=== PATIENT | male | born 1945 | race Caucasian/White ===

== ENCOUNTER 2017-09-22 11:03 | Day surgery (SDC) | payer MEDICARE, SELFPAY ==
[2017-09-17 13:26] VITALS: BMI 27.3
[2017-09-17 15:09] VITALS: BMI 28.1
[2017-09-22] VITALS (14 sets, daily range): BP systolic 109–156; BP diastolic 65–98; PULSE 52–62; RESP 16–18; TEMP 36.6; O2SAT 91–98
--- NOTE | 2017-09-22 12:47 | HMH.PROC ---
[facility] Procedure Note Procedure Note:: Colonoscopy Procedure Report: Colonoscopy with cold snare polypectomy and hemorrhoid band ligation Endoscopist: Raheel Gustafson II, MD Referring physician: Raymond Puckett M.D. Date of Procedure: September 22, 2017 Equipment: Olympus 180 variable stiffness pediatric colonoscope Sedation: Fentanyl 200 mg IV/ Versed 9 mg IV Indication: Mr. Jones is a 71-year-old gentleman who is here for diagnostic colonoscopy. He has had a change in bowel habits with 6-7 bowel movements daily and some bright red rectal bleeding. He did improve after taking FiberCon. The patient's last colonoscopy was January 2010 at which time a single polyp (tubular adenoma ?1) were removed. He has had a couple of polyps removed in the past. He reports no abdominal pain, weight lossor family history of colon cancer. His bowel function has improved. Procedure: Prior to the procedure, a history and physical exam was performed, and patient's medications and allergies were reviewed. The risks, benefits and alternatives of the sedation and procedure were discussed with the patient. All questions were answered and informed consent was obtained. The patient was brought to the procedure room. Patient identification and proposed procedure were verified by the physician and the nurse. The patient was placed in a left lateral decubitus position and the scope was passed under direct vision. Throughout the procedure, the patient's blood pressure, pulse, and oxygen saturations were monitored continuously. The colonoscopy was accomplished without difficulty. The patient tolerated the procedure well. Findings: On digital rectal examination there was normal rectal tone. There were no external hemorrhoids. The prostate was 2-3+ with some firmness at the lower margin of the prostate. The colonoscope was introduced through the anal canal to the rectum and advanced to the cecum. The ileocecal valve and appendiceal orifice were identified. The scope was advanced a short distance into the ileum which appeared grossly normal. The scope was then withdrawn into the colon. There were 3 colon polyps identified in the cecum ?1 and ascending ?2. These ranged in size from 4-6 mm and were all removed via cold snare polypectomy. There were scattered diverticuli throughout the descending and sigmoid colon (LEFT colon). There was some evidence of chronic sigmoid diverticulitis. The rectum itself was normal. Upon retroflexion within the rectum there were grade 1-2 internal hemorrhoids. The hemorrhoids were banded using 3 bands with excellent ligation effect. Impression: 1. Diminutive colonic polyps ?3 2. Left-sided diverticulosis with evidence of chronic sigmoid diverticulitis 3. Grade 1-2 internal hemorrhoids status post band ligation ?3 4. Prostate firmness/mild asymmetry lower margins Plan: I will follow up the polyp pathology and recommend repeat colonoscopy again in 5 years based upon the polyp histology. I would encourage fiber supplementation (FiberCon or psyllium) on a long-term daily maintenance basis. I would recommend PSA testing annually.
--- NOTE | 2017-09-22 12:56 | P.PCN_ITS ---
[facility] Procedure Note Procedure Note:: Colonoscopy Procedure Report: Colonoscopy with cold snare polypectomy and hemorrhoid band ligation Endoscopist: Raheel Gustafson II, MD Referring physician: Raymond Puckett M.D. Date of Procedure: September 22, 2017 Equipment: Olympus 180 variable stiffness pediatric colonoscope Sedation: Fentanyl 200 mg IV/ Versed 9 mg IV Indication: Mr. Jones is a 71-year-old gentleman who is here for diagnostic colonoscopy. He has had a change in bowel habits with 6-7 bowel movements daily and some bright red rectal bleeding. He did improve after taking FiberCon. The patient's last colonoscopy was January 2010 at which time a single polyp (tubular adenoma ?1) were removed. He has had a couple of polyps removed in the past. He reports no abdominal pain, weight lossor family history of colon cancer. His bowel function has improved. Procedure: Prior to the procedure, a history and physical exam was performed, and patient' s medications and allergies were reviewed. The risks, benefits and alternatives of the sedation and procedure were discussed with the patient. All questions were answered and informed consent was obtained. The patient was brought to the procedure room. Patient identification and proposed procedure were verified by the physician and the nurse. The patient was placed in a left lateral decubitus position and the scope was passed under direct vision. Throughout the procedure, the patient's blood pressure, pulse, and oxygen saturations were monitored continuously. The colonoscopy was accomplished without difficulty. The patient tolerated the procedure well. Findings: On digital rectal examination there was normal rectal tone. There were no external hemorrhoids. The prostate was 2-3+ with some firmness at the lower margin of the prostate. The colonoscope was introduced through the anal canal to the rectum and advanced to the cecum. The ileocecal valve and appendiceal orifice were identified. The scope was advanced a short distance into the ileum which appeared grossly normal. The scope was then withdrawn into the colon. There were 3 colon polyps identified in the cecum ?1 and ascending ? 2. These ranged in size from 4-6 mm and were all removed via cold snare polypectomy. There were scattered diverticuli throughout the descending and sigmoid colon (LEFT colon). There was some evidence of chronic sigmoid diverticulitis. The rectum itself was normal. Upon retroflexion within the rectum there were grade 1-2 internal hemorrhoids. The hemorrhoids were banded using 3 bands with excellent ligation effect. Impression: 1. Diminutive colonic polyps ?3 2. Left-sided diverticulosis with evidence of chronic sigmoid diverticulitis 3. Grade 1-2 internal hemorrhoids status post band ligation ?3 4. Prostate firmness/mild asymmetry lower margins Plan: I will follow up the polyp pathology and recommend repeat colonoscopy again in 5 years based upon the polyp histology. I would encourage fiber supplementation (FiberCon or psyllium) on a long-term daily maintenance basis. I would recommend PSA testing annually.
== END 2017-09-22 13:59 | disposition home or self-care (01) ==
LOC: OUTP 11:06
PROVIDERS: Family Provider Nurse Practitioner Family; PCP Internal Medicine Adolescent Medicine; Visit Provider Internal Medicine Gastroenterology
PROC: 0DJD8ZZ Inspection of Lower Intestinal Tract, Via Natural or Artificial Opening Endoscopic (ICD-10-PCS; CPT 45378; principal; 2017-09-22 12:00)
DX: K63.5 Polyp of colon (principal); K57.30 Diverticulosis of large intestine without perforation or abscess without bleeding; K64.0 First degree hemorrhoids; K64.1 Second degree hemorrhoids; Z86.010 Personal history of colon polyps
CPT/HCPCS: 45380; 88305; 99152; 99153

== ENCOUNTER → 2018-09-03 09:18 | Outpatient (CLI) | payer MEDICARE, SELFPAY ==
--- NOTE | 2018-09-03 09:23 | CA_ITS ---
PROCEDURE: 2-D M-mode and color Doppler study INDICATIONS FOR THE TEST: Chest pain+ COPD Heart Murmur Tobacco Smoking Palpitations Fatigue Syncope Edema Hypertension+Diabetes Mellitus Rheumatic Fever SOB ELE Obesity Hyperlipidemia+ Family History HD Additional History Lt sided chest pressure PATIENT INFORMATION HEIGHT: 68 WEIGHT: 176 GENDER: Male B/P: 124/78 2-D/M-MODE INTERPRETATION: 2-D MEASUREMENTS OBSERVED VALUES IN CMS Right Ventricular Dimension (RVDd) 3.0 Interventricular Septum (Thickness)(IVsd) 0.9 Left Ventricular Internal Dimensions(LVIDd) 5.1 Left Ventricular Posterior Wall (Thickness)(LVPWd) 0.9 Aortic Root 3.3 Aortic Cusp Separation 2.3 Left Atrial Dimensions (LAD) 3.7 2D 1. Left atrium is mildly enlarged, left ventricle is normal size, left ventricle wall thickness is upper limit of the normal, there is preserved left ventricular systolic function, visually estimated ejection fraction 55% with no regional wall motion abnormality. 2. The right atrium and right ventricle are mildly enlarged with normal contractility. 3. The aortic valve is minimally thickened and fibrosed. 4. The mitral and tricuspid valve leaflets are minimally thickened. 5. The pulmonic valve is poorly visualized. 6. No significant pericardial effusion noted. DOPPLER INTERROGATION: Doppler interrogation of the aortic, mitral and tricuspid valvular presence of mild mitral and tricuspid regurgitation, tricuspid regurgitation jet velocity is inadequate for calculation of the right ventricular systolic pressure, grade 1 diastolic dysfunction seen with tissue Doppler evidence of raised left atrial pressure. CONCLUSION: 1. Mildly enlarged left atrium, normal left ventricular size, visually estimated ejection fraction 55% with no regional wall motion abnormality, grade 1 diastolic dysfunction seen with tissue Doppler evidence of raised left atrial pressure. 2. Mildly enlarged right atrium and right ventricle, contractility of the right ventricle is normal. 3. Mild mitral and tricuspid regurgitation 4. No significant pericardial effusion noted.
== END ==
PROVIDERS: PCP Internal Medicine Adolescent Medicine; Visit Provider Internal Medicine Adolescent Medicine
DX: R94.31 Abnormal electrocardiogram [ECG] [EKG] (principal)
CPT/HCPCS: 93306

== ENCOUNTER → 2018-09-21 08:37 | Outpatient (POV) | payer MEDICARE, SELFPAY | PROVIDERS: Visit Provider Nurse Practitioner Acute Care | DX: Z00.00 Encounter for general adult medical examination without abnormal findings (principal) ==

== ENCOUNTER → 2020-01-27 14:35 | Outpatient (CLI) | payer MEDICARE, SELFPAY ==
--- NOTE | 2020-01-27 14:39 | MR_ITS ---
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 3-D MIP and myelographic images are also rendered and reviewed FINDINGS: There is normal alignment. The spinal cord ends at the L1-L2 level. There is multilevel lumbar spondylosis. T10-T11: Degenerative disc disease. T11-T12: Degenerate disc disease with mild facet and ligamentum hypertrophy the T12-L1: Mild degenerative disc disease. L1-L2: Degenerative disc disease with minimal left paracentral disc protrusion not readily apparent on the previous exam causing minimal narrowing of the left lateral recess L2-L3: Degenerative disc disease with bulging disc with facet and ligamentum hypertrophy with bilateral lateral recess narrowing and bilateral foraminal narrowing. Not significantly changed L3-L4: Degenerative disc disease with bulging disc eccentric toward the right with facet and ligamentum hypertrophy. There is severe right lateral recess narrowing and moderate right-sided foraminal narrowing. There is transverse narrowing of the canal at 10 mm. The lateral recess narrowing and facet hypertrophic change is slightly worse than when compared to the previous exam L4-5: 5 mm anterolisthesis of L4 with bulging disc along with facet ligamentum hypertrophy with canal stenosis not significantly changed. There is a small amount fluid within the facet joints at this level. There is severe bilateral lateral recess narrowing and moderate bilateral foraminal narrowing. L5-S1: 6 mm retrolisthesis of L5 with degenerative disc disease. Posterior endplate hypertrophic changes present and is eccentric toward the right with resultant severe right lateral recess narrowing not significantly changed. No extruded herniated disc are evident. Incidental note is made of a 5 cm left renal cyst and small right parapelvic renal cyst versus hydronephrosis IMPRESSION: 1. There is multilevel lumbar spondylosis. Degenerative disc disease with facet and ligamentum hypertrophy is present with lateral recess and foraminal narrowing and with canal stenosis. 2. L1-L2: Degenerative disc disease with minimal left paracentral disc protrusion not readily apparent on the previous exam causing minimal narrowing of the left lateral recess 3. L2-L3: Degenerative disc disease with bulging disc with facet and ligamentum hypertrophy with bilateral lateral recess narrowing and bilateral foraminal narrowing. 4. L3-L4: Degenerative disc disease with bulging disc eccentric toward the right with facet and ligamentum hypertrophy. There is severe right lateral recess narrowing and moderate right-sided foraminal narrowing. There is transverse narrowing of the canal at 10 mm. The lateral recess narrowing and facet hypertrophic change is slightly worse than when compared to the previous exam 5. L4-5: 5 mm anterolisthesis of L4 with bulging disc along with facet ligamentum hypertrophy with canal stenosis not significantly changed. There is a small amount fluid within the facet joints at this level. There is severe bilateral lateral recess narrowing and moderate bilateral foraminal narrowing. 6. L5-S1: 6 mm retrolisthesis of L5 with degenerative disc disease. Posterior endplate hypertrophic changes present and is eccentric toward the right with resultant severe right lateral recess narrowing not significantly changed Dictated by: Prateek Purvis MD 01/28/2020 15:57 Electronically signed by Prateek Purvis MD in [place] 01/28/2020 15:57
== END ==
PROVIDERS: Visit Provider Internal Medicine Adolescent Medicine
DX: M54.31 Sciatica, right side (principal)
CPT/HCPCS: 72148; 76376

== ENCOUNTER 2020-06-14 19:35 | Emergency (ER) | payer MEDICARE, SELFPAY ==
[2020-06-14 19:37] VITALS: BP 183/107; PULSE 61; RESP 16; TEMP 36.7; O2SAT 96; BMI 27.3
--- NOTE | 2020-06-14 20:02 | HMH.EDSKAF ---
ED Disposition Clinical Impression: Skin abrasion Cellulitis Qualifiers: Site of cellulitis: extremity Site of cellulitis of extremity: upper extremity Laterality: unspecified laterality Qualified Code(s): L03.119 - Cellulitis of unspecified part of limb Disposition: Home, Self-Care Condition on Discharge: Good Instructions: Cellulitis Additional Instructions: keep clean and see pcp for follow up Prescriptions: Mupirocin [Bactroban 2% Ointment 22gm tube] 1 applicatio TP BID #1 tube Transmission Status: Pending to [facility] cephALEXin [Keflex 500mg Cap] 500 mg PO TID #30 cap Transmission Status: Pending to [facility] Referrals: Raymond Puckett MD [Primary Care Provider] - - Critical Care Critical Care Time: No Attestation: On , the high probability of a clinically significant, sudden or life threatening deterioration of the following system(s) required my full and direct attention, intervention and personal management. The time I documented below is in addition to time spent performing reported procedures but includes the following listed in this critical care notation. Medical Decision Making - Medical Records Medical records reviewed: Yes: I reviewed the patient's medical records. - [place] Inquiry Pt receiving controlled substance: No Vital Signs: 06/14/20 19:37 Temperature 98.1 F Temperature Source Oral Pulse Rate [Left Radial] 61 Respiratory Rate 16 Blood Pressure [Right Arm] 183/107 H Blood Pressure Mean [Right Arm] 132 Blood Pressure Source [Right Arm] Automatic Cuff Blood Pressure Position [Right Arm] Sitting 02 Sat by Pulse Oximetry 96 Oxygen Delivery Method Room Air Orders (Tests/Meds): ED MEDICATIONS Discontinued Medications Generic Name Dose Route Start Last Admin Trade Name Benjamín PRN Reason Stop Dose Admin Cephalexin HCl 500 mg 06/14/20 20:10 Cephalexin 500mg Capsule PO 06/14/20 20:11 ONCE ONE Protocol Tetanus/Diphtheria Toxoids 0.5 ml 06/14/20 20:01 06/14/20 20:09 Tetanus-Diphth Toxoid, Adult 0.5ml Syr IM 06/14/20 20:02 0.5 ml .ONCE ONE Administration Skin/Abscess/FB HPI - General Chief complaint: Fall Stated complaint: AO 1030 06/14/20 Fell off boat, lac to r & l arm, Time Seen by Provider: 06/14/20 20:02 Mode of Arrival: Ambulatory Source of Information: Patient, Medical Record Limitations: No Limitations Description of Symptoms (Recalled from ER Triage Doc. by RN): pt stated he was fishing this morning in [place] when he slipped and fell into the water trying to step from the boat to the dock. pt stated he attempted to grab a post on the dock and cut himself on the barnacles attahed to the post. pt has abrasions/ skin tears to his right forearm, left bicep and left lower leg. - History of Present Illness HPI narrative: fall this am with abrasions to ext and leg - pt has no fever or other c/o MD complaint: other (abrasions ) Onset (ago): hour(s) Tetanus up to date: no Location: [facility] Severity: moderate Associated symptoms: denies other symptoms Treatments prior to arrival: none - Related Data Home Medications Medication Instructions Recorded Confirmed Amlodipine Besylate [Norvasc 5mg 5 mg PO DAILY 09/17/17 09/22/17 tablet] Cetirizine HCl 10 mg PO DAILY 09/17/17 09/22/17 Diclofenac Sodium [Diclofenac 75mg 75 mg PO BID 09/17/17 09/22/17 Tab] Levothyroxine Sodium 100 mg PO DAILY 09/17/17 09/22/17 [Levothyroxine 100mcg (0.1MG) Tab] Memantine HCl/Donepezil HCl 28 each PO DAILY 09/17/17 09/22/17 [Namzaric 28 mg-10 mg Capsule] Nebivolol HCl [Bystolic] 5 mg PO DAILY 09/17/17 09/22/17 Rosuvastatin Calcium [Crestor] 40 mg PO HS 09/17/17 09/22/17 Previous Rx's Medication Instructions Recorded Mupirocin [Bactroban 2% Ointment 1 applicatio TP BID #1 tube 06/14/20 22gm tube] cephALEXin [Keflex 500mg Cap] 500 mg PO TID #30 cap 06/14/20 Allergies Allergy/AdvReac Type S
--- NOTE | 2020-06-14 20:07 | PC.NURSE ---
cleaned wound with sterile water and hebacleanse. triple antibiotic ointment applied with non stick dressing and wrapped with 3in patel x 3 wounds.
[2020-06-14 20:21] VITALS: BP 176/82; PULSE 63; RESP 16; TEMP 36.6; O2SAT 97
== END 2020-06-14 20:26 | disposition home or self-care (01) ==
PROVIDERS: Emergency Provider Emergency Medicine; PCP Internal Medicine Adolescent Medicine
DX: S50.811A Abrasion of right forearm, initial encounter (principal); S40.812A Abrasion of left upper arm, initial encounter; S80.812A Abrasion, left lower leg, initial encounter; W01.198A Fall on same level from slipping, tripping and stumbling with subsequent striking against other object, initial encounter; Y92.832 Beach as the place of occurrence of the external cause; Z23 Encounter for immunization; Z88.5 Allergy status to narcotic agent; E78.5 Hyperlipidemia, unspecified
CPT/HCPCS: 90471; 90714; 99281

== ENCOUNTER → 2020-10-11 10:33 | Outpatient (CLI) | payer MEDICARE, SELFPAY | PROVIDERS: Visit Provider Internal Medicine Adolescent Medicine | DX: R19.5 Other fecal abnormalities (principal); R80.9 Proteinuria, unspecified ==

== ENCOUNTER → 2020-10-11 17:00 | Outpatient (CLI) | payer MEDICARE, SELFPAY ==
[2020-10-13 21:50] LABS: C difficile Toxins AB, EIA Negative (Negative)
== END ==
PROVIDERS: Visit Provider Internal Medicine Adolescent Medicine
DX: R19.5 Other fecal abnormalities (principal); R80.9 Proteinuria, unspecified
CPT/HCPCS: 87324

== ENCOUNTER → 2020-10-13 08:53 | Outpatient (CLI) | payer MEDICARE, SELFPAY ==
[2020-10-13 10:32] LABS: Total Protein 24 Hour,Urine 120 mg/24 hr (40-90); Total Volume,Urine 750 mL (250-2400)
== END ==
PROVIDERS: Visit Provider Internal Medicine Adolescent Medicine
DX: R80.9 Proteinuria, unspecified (principal); R19.5 Other fecal abnormalities
CPT/HCPCS: 84155

== ENCOUNTER → 2020-10-16 10:30 | Outpatient (CLI) | payer MEDICARE, SELFPAY ==
--- NOTE | 2020-10-16 10:34 | US_ITS ---
PROCEDURE: US KIDNEY CLINICAL INDICATION: DARK URINE Protein in urine COMPARISON: MR MR LUMBAR SPINE WO CON from 01/27/2020 FINDINGS: The right kidney is [id number]. No hydronephrosis, cortical thinning, or renal mass or perinephric fluid collection is evident. The left kidney is [id number].. There is a 5.3 x 4.4 x 5.5 Centimeter exophytic left renal cystic structure. There is incomplete visualization on prior MRI and on ultrasound benign there are no visible suspicious features on these modalities. There is a 1.4 x 1.1 by 1.3 centimeter renal cortical cystic structure too small to further characterize. This is not visible on prior MRI. Renal protocol CT could be performed to further characterize. No hydronephrosis, cortical thinning, or renal mass or perinephric fluid collection is evident. There is a greater than 3 centimeter size difference between the right and left kidneys, a finding which raises possibility of renal artery stenosis. Vascular ultrasound evaluation of the renal arteries could be performed for further evaluation, alternately, the above the suggested CT may allow for adequate assessment of the renal arteries. IMPRESSION: 1. Significant size discrepancy between the kidneys raises possibility of right renal artery stenosis. 2. Two left renal cystic structures suboptimally visualized. Renal protocol CT could further characterize and may also allow for assessment of the renal arteries. Dictated by: Aarti Mosquera MD 10/16/2020 17:49 Aarti Mosquera MD in [place] 10/16/2020 17:49
== END ==
PROVIDERS: PCP Internal Medicine Adolescent Medicine; Visit Provider Internal Medicine Adolescent Medicine
DX: R82.998 Other abnormal findings in urine (principal)
CPT/HCPCS: 76770

== ENCOUNTER → 2020-11-03 09:36 | Outpatient (CLI) | payer MEDICARE, SELFPAY ==
--- NOTE | 2020-11-03 09:40 | CA_ITS ---
APPROVED REPORT Brewery Technician: Heather Edge RVT Study Quality: Good Indications: HTN, ABN US/ KIDNEYS-RENAL SIZE DISCREPANCY Risk Factors Hypertension Hyperlipidemia Renal Artery Doppler Origin (R) 93.9/ cm/sec Proximal (R) 141.6/ cm/sec Mid (R) 157.5/ cm/sec Distal (R) 140.1/ cm/sec Renal Aorta Ratio (R) 1.24 Segmental A. (R) 28.6/12.3 cm/sec RI: 0.56 Segmental A. Sup (R) 23.7/9.8 cm/sec Segmental A. Mid (R) 28.6/12.3 cm/sec Segmental A. Inf (R) 25.8/13.4 cm/sec Origin (L) 144.5/ cm/sec Proximal (L) 125.7/ cm/sec Mid (L) 148.8/ cm/sec Distal (L) 104.0/ cm/sec Renal Aorta Ratio (L) 1.17 Segmental A. (L) 49.7/15.4 cm/sec RI: 0.69 Segmental A. Sup (L) 39.8/8.1 cm/sec Segmental A. Mid (L) 49.7/15.4 cm/sec Segmental A. Inf (L) 40.7/11.8 cm/sec Renal Measurements Kidney Size (R) 10.0x6.6 cm Cortical Thickness (R) 1.4 cm Kidney Size (L) 11.2x8.4 cm Cortical Thickness (L) 1.7 cm Findings Study suggests no evidence of renal artery stenosis of the bilateral renal arteries. 5.0 X 4.7 exophytic cystic lesion lower pole left kidney. Conclusion Study suggests no evidence of renal artery stenosis of the bilateral renal arteries. 5.0 X 4.7 exophytic cystic lesion lower pole left kidney. Electronically signed by : Prateek Purvis MD 11/03/2020 16:05:56
== END ==
PROVIDERS: PCP Internal Medicine Adolescent Medicine; Visit Provider Internal Medicine Adolescent Medicine
DX: I70.1 Atherosclerosis of renal artery (principal)
CPT/HCPCS: 93976

== ENCOUNTER → 2020-12-21 15:07 | Outpatient (CLI) | payer MEDICARE, SELFPAY ==
[2020-12-21 15:11] LABS: Adenovirus F 40/41, stool Not Detected (NotDetected); Astrovirus Not Detected (NotDetected); Campylobacter Not Detected (NotDetected); Cryptosporidium Not Detected (NotDetected); Cyclospora Cayetanesis Not Detected (NotDetected); Entamoeba histolytica Not Detected (NotDetected); Enteroaggregative E coli Not Detected (NotDetected); Enteropathogenic E coli Not Detected (NotDetected); Enterotoxigenic E coli Not Detected (NotDetected); Giardia lamblia Not Detected (NotDetected); Norovirus Not Detected (NotDetected); Plesimonas Shigalloides, PCR Not Detected (NotDetected); Rotavirus A Not Detected (NotDetected); Salmonella, PCR Not Detected (NotDetected); Sapovirus Not Detected (NotDetected); Shiga-like toxin E coli Not Detected (NotDetected); Shigella Enterovasive E coli Not Detected (NotDetected); Vibrio Cholerae Not Detected (NotDetected); Vibrio, PCR Not Detected (NotDetected); Yersinia Entercolitica, PCR Not Detected (NotDetected)
[2020-12-21 19:04] LABS: Clostridium Difficile A/B, PCR Not Detected (NotDetected)
== END ==
PROVIDERS: Visit Provider Internal Medicine Gastroenterology
DX: R19.7 Diarrhea, unspecified (principal)
CPT/HCPCS: 87506

== ENCOUNTER → 2020-12-27 15:04 | Outpatient (CLI) | payer MEDICARE, SELFPAY ==
[2020-12-27 16:29] LABS: Anion Gap 13.8 mEq/L (5-15); Blood Urea Nitrogen 47 mg/dl (9-20); Carbon Dioxide 20 mmol/L (22.0-30.0); Chloride 110 mmol/L (98-107); Estimated Glomerular Filt Rate 24 ml/min (>60); GFR (African American) 29 ML/MIN (>60); Glucose 90 mg/dl (74-100); Potassium 4.8 mmoL/L (3.5-5.1); Sodium 139 mmol/L (136-145)
== END ==
PROVIDERS: Visit Provider Internal Medicine Adolescent Medicine
DX: N17.9 Acute kidney failure, unspecified (principal)
CPT/HCPCS: 36415; 80048

== ENCOUNTER 2020-12-28 10:39 | Outpatient (CLI) | payer MEDICARE, SELFPAY ==
[2020-12-28 10:55] VITALS: BP 111/69; PULSE 53; RESP 18; TEMP 36.4; O2SAT 95
[2020-12-28 11:32] VITALS: BMI 24.7
[2020-12-28 12:05] VITALS: BP 130/78; PULSE 49; RESP 18
[2020-12-28 12:12] LABS: Chloride 113 mmol/L (98-107); Potassium 3.9 mmoL/L (3.5-5.1); Sodium 139 mmol/L (136-145)
[2020-12-28 12:15] LABS: Anion Gap 10.9 mEq/L (5-15); Blood Urea Nitrogen 34 mg/dl (9-20); Carbon Dioxide 19 mmol/L (22.0-30.0); Creatinine Clearance Estimated 37 mL/min (50-200); Estimated Glomerular Filt Rate 37 ml/min (>60); GFR (African American) 45 ML/MIN (>60); Glucose 127 mg/dl (74-100)
[2020-12-28 12:47] LABS: Calcium 7.2 mg/dl (8.4-10.2)
== END 2020-12-28 12:05 | disposition home or self-care (01) ==
LOC: INF 10:40
PROVIDERS: PCP Internal Medicine Adolescent Medicine; Visit Provider Internal Medicine Adolescent Medicine
DX: N17.9 Acute kidney failure, unspecified (principal)
CPT/HCPCS: 80048; 96360

== ENCOUNTER → 2021-01-10 11:03 | Outpatient (CLI) | payer MEDICARE, SELFPAY ==
[2021-01-10 12:37] LABS: Anion Gap 9.9 mEq/L (5-15); Blood Urea Nitrogen 19 mg/dl (9-20); Calcium 9.2 mg/dl (8.4-10.2); Carbon Dioxide 28 mmol/L (22.0-30.0); Chloride 107 mmol/L (98-107); Estimated Glomerular Filt Rate 54 ml/min (>60); GFR (African American) 65 ML/MIN (>60); Glucose 88 mg/dl (74-100); Potassium 4.9 mmoL/L (3.5-5.1); Sodium 140 mmol/L (136-145)
== END ==
PROVIDERS: Visit Provider Internal Medicine Adolescent Medicine
DX: I10 Essential (primary) hypertension (principal)
CPT/HCPCS: 36415; 80048

== ENCOUNTER → 2021-01-24 10:36 | Outpatient (CLI) | payer MEDICARE, SELFPAY | PROVIDERS: Visit Provider Internal Medicine Gastroenterology | DX: Z01.812 Encounter for preprocedural laboratory examination (principal); Z20.822 Contact with and (suspected) exposure to COVID-19; Z12.11 Encounter for screening for malignant neoplasm of colon | CPT/HCPCS: U0003 ==

== ENCOUNTER 2021-01-26 11:31 | Day surgery (SDC) | payer MEDICARE, SELFPAY ==
[2021-01-22 13:36] VITALS: BMI 25.2
[2021-01-26 11:55] VITALS: BP 130/78; PULSE 56; RESP 16; TEMP 37.1; O2SAT 98
--- NOTE | 2021-01-26 13:13 | HMH.PROC ---
[facility] Procedure Note Procedure Note:: Colonoscopy Procedure Report: Colonoscopy with cold snare polypectomy and cold biopsies Endoscopist: Raheel Gustafson II, MD Referring physician: Raymond Puckett M.D. Date of Procedure: January 26, 2021 Equipment: Olympus 190 variable stiffness pediatric colonoscope Sedation: MAC sedation Indication: Mr. Joyner is a 75-year-old gentleman who is here for diagnostic colonoscopy secondary to a change in bowel habits with looser bowel movements and sometimes watery bowel movements. He did receive oral antibiotics in October for diarrhea. His C. difficile toxin was negative. He does get some bouts of fecal incontinence. He has lost from 182 pounds down to 163 pounds. He does have some moderate gassiness. He did have hemorrhoid banding in October 2018. His last full colonoscopy in September 2017 revealed 3 polyps (small serrated adenomas x3). He has had no significant abdominal pain. His PCR gastrointestinal panel testing was negative. He did improve with FiberCon 2 tablets by mouth daily but over the last week he has had some recurrence. He reports no family history of colon cancer. Procedure: Prior to the procedure, a history and physical exam was performed, and patient's medications and allergies were reviewed. The risks, benefits and alternatives of the sedation and procedure were discussed with the patient. All questions were answered and informed consent was obtained. The patient was brought to the procedure room. Patient identification and proposed procedure were verified by the physician and the nurse. The patient was placed in a left lateral decubitus position and the scope was passed under direct vision. Throughout the procedure, the patient's blood pressure, pulse, and oxygen saturations were monitored continuously. The colonoscopy was accomplished without difficulty. The patient tolerated the procedure well. Findings: On digital rectal examination there was normal rectal tone. There were no external hemorrhoids. There was some prostate asymmetry with possible small prostate nodule. The colonoscope was introduced through the anal canal to the rectum and advanced to the cecum. The ileocecal valve and appendiceal orifice were identified. The scope was advanced a short distance into the ileum which appeared grossly normal. The scope was then withdrawn into the colon. The cecum, ascending and transverse colon and mucosa were grossly normal. There was a very flat 8 mm polyp in the descending colon removed via cold snare polypectomy. There were scattered extensive diverticuli throughout the descending and sigmoid colon (LEFT colon). 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 Cold biopsies were taken from the left colon. The rectum itself was normal. Upon retroflexion within the rectum there were grade 1-2 internal hemorrhoids with some fibrosis near the pectinate line from prior hemorrhoid banding. The preparation was excellent throughout with [place] Preparation Score of 9. The cecal time was 12 minutes. Impression: 1. Descending colon polyp (8 mm) 2. 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 Grade 1-2 internal hemorrhoids 4. Possible early prostate nodule Plan: I will follow-up the biopsies. I would increase FiberCon to 2 tablets by mouth twice daily and continue dietary measures. If the biopsies show any evidence of colitis, I would consider trial of budesonide. I will follow up the polyp histology and determine whether further surveillance is warranted. I would also inquire about PSA testing and whether he has had further prostate evaluation.
[2021-01-26 13:17] VITALS: BP 77/51; PULSE 74; RESP 18; TEMP 36.3; O2SAT 90
--- NOTE | 2021-01-26 13:25 | P.PN_ITS ---
[facility] Anesthesia Checklist - Structural Data Admitted From: Home Planned Operative Procedure/s: colonoscopy Consent for Planned Operative Procedure(s) Verified: Yes - Additional verifications Anesthesia Reactions: Yes ( FOAMING FROM MOUTH ) - Airway Assessment C-Spine Mobility Assessed: Yes TMJ Mobility Assessed: Yes Dentition: Good Dentition - Neurological Assessment Level of Consciousness: Awake, Alert, Appropriate - Anesthesia Plan Anesthesia Risk discussed: Yes Anesthesia Plan: Verified ASA Class: II Anesthesia Type: MAC [facility] History I have reviewed the patient's past medical history: Yes Medical History: Reports:: Hyperlipidemia Denies:: Cancer, Diabetes Mellitus Type 1, Diabetes Mellitus Type 2, Internal Pacemaker, Lung Disease, MRSA, Seizures *Have you ever received a pneumonia vaccine?: Yes *Have you received a flu vaccine this season?: Yes Anesthesia experience/problems:: none Other Surgeries: No: Pacemaker Amputation: No - *Social History Last grade of school completed: Advanced degree Smoking Status: Never smoker Alcohol Intake: current Alcohol Intake Frequency:: 0-2 drinks per day Substance Use Type: denies use *Occupational Status:: employed Household Members: spouse *Travel in the last 8 weeks: Inside the [facility] Family Hx:: No significant family history
[2021-01-26 13:27] VITALS: BP 87/58; PULSE 59; RESP 18; TEMP 36.3; O2SAT 92
[2021-01-26 13:37] VITALS: BP 119/75; PULSE 64; RESP 18; TEMP 36.3; O2SAT 95
[2021-01-26 13:47] VITALS: BP 125/74; PULSE 59; RESP 18; TEMP 36.3; O2SAT 96
[2021-01-26 14:20] VITALS: BP 127/73; PULSE 59; RESP 18; TEMP 36.3; O2SAT 98
== END 2021-01-26 14:22 | disposition home or self-care (01) ==
LOC: OUTP 11:34
PROVIDERS: PCP Internal Medicine Adolescent Medicine; Visit Provider Internal Medicine Gastroenterology
PROC: 0DJD8ZZ Inspection of Lower Intestinal Tract, Via Natural or Artificial Opening Endoscopic (ICD-10-PCS; CPT 45378; principal; 2021-01-26 12:30)
DX: K63.5 Polyp of colon (principal); K57.30 Diverticulosis of large intestine without perforation or abscess without bleeding; K64.0 First degree hemorrhoids; K57.32 Diverticulitis of large intestine without perforation or abscess without bleeding; K52.89 Other specified noninfective gastroenteritis and colitis; Z86.010 Personal history of colon polyps; E78.5 Hyperlipidemia, unspecified; I10 Essential (primary) hypertension; E03.9 Hypothyroidism, unspecified; Z88.6 Allergy status to analgesic agent; Z79.899 Other long term (current) drug therapy; R19.4 Change in bowel habit; R63.4 Abnormal weight loss; Z68.25 Body mass index [BMI] 25.0-25.9, adult
CPT/HCPCS: 45385; 88305

== ENCOUNTER → 2021-03-06 11:30 | Outpatient (CLI) | payer MEDICARE, SELFPAY ==
[2021-03-06 12:15] LABS: Basophils % 0.7 % (0.1-2.0); Eosinophils # 0.2 K/mm3 (0.0-0.4); Eosinophils % 5.2 % (0.1-12.0); Hematocrit 37.5 % (42.0-52.0); Hemoglobin 11.9 g/dL (14.1-18.0); Lymphocytes # 1.2 K/mm3 (0.7-4.5); Lymphocytes % 31.2 % (10-50); Mean Corpuscular HGB Conc 31.7 g/dL (31.8-35.4); Mean Corpuscular Hemoglobin 31.1 pg (27.0-31.2); Mean Corpuscular Volume 98.2 fl (80-94); Mean Platelet Volume 8.5 fl (7.4-10.4); Monocytes # 0.4 K/mm3 (0.1-1.0); Monocytes % 9.1 % (1.7-9.3); Neutrophils # 2.1 K/mm3 (1.8-7.8); Neutrophils % 53.9 % (37.0-80.0); Platelet Count 171 K/mm3 (142-424); Red Blood Count 3.82 M/mm3 (4.60-6.20); Red Cell Distribution Width 14.5 % (11.5-17.5); White Blood Count 3.9 K/mm3 (4.8-10.8)
[2021-03-06 13:59] LABS: Chloride 107 mmol/L (98-107)
[2021-03-06 14:00] LABS: Sodium 142 mmol/L (136-145)
[2021-03-06 14:02] LABS: Alanine Aminotransferase 11 U/L (12-78); Aspartate Amino Transferase 24 U/L (17-59); Blood Urea Nitrogen 21 mg/dl (9-20); Estimated Glomerular Filt Rate 54 ml/min (>60); GFR (African American) 65 ML/MIN (>60)
[2021-03-06 14:03] LABS: Albumin/Globulin Ratio 1.3 (1.1-1.8); Alkaline Phosphatase 67 U/L (38-126); Bilirubin,Total 0.5 mg/dl (0.2-1.3); Calcium 9.1 mg/dl (8.4-10.2); Carbon Dioxide 27 mmol/L (22.0-30.0); Globulin 3.1 g/dL (1.3-3.2); Glucose 86 mg/dl (74-100); Total Protein,Serum 7.1 g/dl (6.3-8.2)
[2021-03-06 14:21] LABS: Triiodothryronine (T3) Uptake 37 % (23.5-40.5)
[2021-03-06 14:22] LABS: Free Thyroxine Index 2.4 ug/dL (5.93-13.13); T4 (Thyroxine) 6.5 ug/dl (5.53-11.0)
[2021-03-06 14:35] LABS: Thyroid Stimulating Hormone 2.22 uIU/mL (0.465-4.68)
== END ==
PROVIDERS: Visit Provider Internal Medicine Adolescent Medicine
DX: I10 Essential (primary) hypertension (principal); E03.9 Hypothyroidism, unspecified
CPT/HCPCS: 36415; 80053; 84436; 84443; 84479; 85025

== ENCOUNTER 2021-04-07 16:45 | Emergency (ER) | payer MEDICARE, SELFPAY ==
[2021-04-07 16:46] VITALS: BP 131/80; PULSE 86; RESP 19; TEMP 37.2; O2SAT 100; BMI 25.0
--- NOTE | 2021-04-07 17:32 | HMH.EDUTC ---
[facility] Disposition Clinical Impression: Exposure to COVID-19 virus Disposition: Home, Self-Care Condition on Discharge: Good Instructions: Preventing the Spread of Coronavirus Discharge Instructions Referrals: Raymond Puckett MD [Primary Care Provider] - Time of Disposition: 17:39 Medical Decision Making - [place] Inquiry Pt receiving controlled substance: No Vital Signs: 04/07/21 16:46 Temperature 98.9 F Temperature Source Oral Pulse Rate [Left Radial] 86 Respiratory Rate 19 Blood Pressure [Right Arm] 131/80 Blood Pressure Mean [Right Arm] 97 02 Sat by Pulse Oximetry 100 Oxygen Delivery Method Room Air Orders (Tests/Meds): ORDERS Category Date Time Status Covid-19 Nasal PCR ([facility]) Routine Lab 04/07/21 17:14 Received [facility] [place] [facility] HPI - General Stated complaint: covid test Time Seen by Provider: 04/07/21 17:32 - History of Present Illness Provider Complaint: Exposed to COVID19 5 days ago. He is asymptomatic and has been vaccinated, but has an appt at [facility] in 2 days so they would like to be tested. Onset (ago): day(s) (5) Relieving factors: none Exacerbating factors: none Associated symptoms: denies other symptoms Treatments prior to arrival: none - Related Data Home Medications Medication Instructions Recorded Confirmed Cetirizine HCl 10 mg PO DAILY 09/17/17 02/01/21 Diclofenac Sodium [Diclofenac 75mg 75 mg PO BID 09/17/17 02/01/21 Tab] Levothyroxine Sodium 100 mg PO DAILY 09/17/17 02/01/21 [Levothyroxine 100mcg (0.1MG) Tab] Memantine HCl/Donepezil HCl 28 each PO DAILY 09/17/17 02/01/21 [Namzaric 28 mg-10 mg Capsule] Nebivolol HCl [Bystolic] 5 mg PO DAILY 09/17/17 02/01/21 Rosuvastatin Calcium [Crestor] 40 mg PO HS 09/17/17 02/01/21 Losartan Potassium [Cozaar 50mg 50 mg PO DAILY 01/22/21 02/01/21 Tablets] Mv-Mn/Folic Acid/Lutein/Gxs672 1 each PO DAILY 01/22/21 02/01/21 [Mens Multivit High Potency Tab] NIFEdipine [Adalat cc] 30 mg PO DAILY 01/22/21 02/01/21 calcium polycarbophiL [FiberCon 625 mg PO BID 01/22/21 02/01/21 625mg tablet] Valacyclovir HCl [Valacyclovir] 500 mg PO DAILY 01/26/21 02/01/21 Allergies Allergy/AdvReac Type Severity Reaction Status Date / Time oxycodone [From PERCOCET] Allergy Unknown Verified 02/01/21 14:14 [facility] History - Hepatitis A Screen Attestation statement:: This patient has been screened for Hepatitis A risk factors. I have reviewed the patient's past medical history: Yes Medical History: Reports:: Hyperlipidemia, Hypertension Denies:: Cancer, Diabetes Mellitus Type 1, Diabetes Mellitus Type 2, Internal Pacemaker, Lung Disease, MRSA, Seizures Other Surgeries: Yes: No Previous Surgery, Hernia Repair. No: Pacemaker Amputation: No Fractures: No Comment: hand surgery and eye surgery with torn retina - Social History Smoking Status: Never smoker Alcohol Intake: current Alcohol Intake Frequency:: 0-2 drinks per day Substance Use Type: denies use Occupational Status: employed Housing: house Household Members: spouse Family Hx:: No significant family history ROS Obtained: Yes All systems reviewed & no additional complaints Physical Exam - General General appearance: alert, in no apparent distress - Head Head exam: normocephalic - Eye Eye exam: Present: PERRL - Chest Chest inspection: Present: normal inspection - Respiratory Respiratory exam: Present: normal lung sounds bilaterally - Cardiovascular Cardiovascular exam: Present: regular rate, normal rhythm - Neurological Exam Neurological exam: Present: alert, oriented X3 - Psychiatric Psychiatric exam: Present: normal affect, normal mood - Skin Skin exam: Present: warm, dry, intact
[2021-04-07 17:45] VITALS: BP 131/80; PULSE 86; RESP 19; TEMP 36.7; O2SAT 100
== END 2021-04-07 17:47 | disposition home or self-care (01) ==
PROVIDERS: Emergency Provider Physician Assistant; PCP Internal Medicine Adolescent Medicine
DX: Z20.822 Contact with and (suspected) exposure to COVID-19 (principal); E78.5 Hyperlipidemia, unspecified; I10 Essential (primary) hypertension; Z88.5 Allergy status to narcotic agent
CPT/HCPCS: G0463; 99202; U0003

== ENCOUNTER → 2021-05-24 16:02 | Outpatient (CLI) | payer MEDICARE, SELFPAY ==
[2021-05-24 18:10] LABS: Alanine Aminotransferase 15 U/L (12-78); Albumin Level 3.8 g/dl (3.5-5.0); Albumin/Globulin Ratio 1.3 (1.1-1.8); Alkaline Phosphatase 54 U/L (38-126); Anion Gap 15.7 mEq/L (5-15); Aspartate Amino Transferase 27 U/L (17-59); Bilirubin,Total 0.3 mg/dl (0.2-1.3); Blood Urea Nitrogen 22 mg/dl (9-20); Carbon Dioxide 24 mmol/L (22.0-30.0); Chloride 105 mmol/L (98-107); Estimated Glomerular Filt Rate 35 ml/min (>60); GFR (African American) 42 ML/MIN (>60); Globulin 2.9 g/dL (1.3-3.2); Glucose 89 mg/dl (74-100); Potassium 4.7 mmoL/L (3.5-5.1); Sodium 140 mmol/L (136-145); Total Protein,Serum 6.7 g/dl (6.3-8.2)
[2021-05-24 19:22] LABS: Adenovirus F 40/41, stool Not Detected (NotDetected); Astrovirus Not Detected (NotDetected); Campylobacter Not Detected (NotDetected); Clostridium Difficile A/B, PCR Not Detected (NotDetected); Cryptosporidium Not Detected (NotDetected); Cyclospora Cayetanesis Not Detected (NotDetected); Entamoeba histolytica Not Detected (NotDetected); Enteroaggregative E coli Not Detected (NotDetected); Enteropathogenic E coli Not Detected (NotDetected); Enterotoxigenic E coli Not Detected (NotDetected); Giardia lamblia Not Detected (NotDetected); Norovirus Not Detected (NotDetected); Plesimonas Shigalloides, PCR Not Detected (NotDetected); Rotavirus A Not Detected (NotDetected); Salmonella, PCR Not Detected (NotDetected); Sapovirus Not Detected (NotDetected); Shiga-like toxin E coli Not Detected (NotDetected); Shigella Enterovasive E coli Not Detected (NotDetected); Vibrio Cholerae Not Detected (NotDetected); Vibrio, PCR Not Detected (NotDetected); Yersinia Entercolitica, PCR Not Detected (NotDetected)
[2021-05-24 20:10] LABS: Occult Blood,Stool Positive (Negative)
[2021-05-30 13:26] LABS: Pancreatic Elastase, Fecal 421 (>200)
== END ==
PROVIDERS: Visit Provider Internal Medicine Gastroenterology
DX: R19.7 Diarrhea, unspecified (principal); R19.4 Change in bowel habit; R63.4 Abnormal weight loss; K92.1 Melena
CPT/HCPCS: 36415; 80053; 82272; 82656; 87506; G0328

== ENCOUNTER → 2021-06-15 11:48 | Outpatient (CLI) | payer MEDICARE, SELFPAY ==
[2021-06-15 12:35] LABS: Chloride 109 mmol/L (98-107)
[2021-06-15 12:36] LABS: Potassium 4.9 mmoL/L (3.5-5.1); Sodium 142 mmol/L (136-145)
[2021-06-15 12:38] LABS: Blood Urea Nitrogen 12 mg/dl (9-20); Estimated Glomerular Filt Rate 73 ml/min (>60); GFR (African American) 88 ML/MIN (>60)
[2021-06-15 12:39] LABS: Anion Gap 11.9 mEq/L (5-15); Calcium 8.7 mg/dl (8.4-10.2); Carbon Dioxide 26 mmol/L (22.0-30.0); Glucose 94 mg/dl (74-100)
== END ==
PROVIDERS: Visit Provider Internal Medicine Adolescent Medicine
DX: N17.9 Acute kidney failure, unspecified (principal)
CPT/HCPCS: 36415; 80048

== ENCOUNTER → 2021-09-06 08:57 | Outpatient (CLI) | payer MEDICARE, SELFPAY ==
--- NOTE | 2021-09-06 09:03 | XR_ITS ---
FINAL REPORT CLINICAL HISTORY: RT KNEE PAIN FINDINGS: RIGHT KNEE 3 views of the right knee were obtained. There is no acute fracture or dislocation. Visualized joint spaces are normally aligned. There is sharpening of the tibial spines. There are small osteophytes along the undersurface of the patella. IMPRESSION: Hypertrophic change with no acute bony abnormality. Reviewed, Interpreted and Dictated by Marbin Carlisle MD Transcribed by Myah Merritt Authenticated by Marbin Carlisle MD on 09/06/2021 12:46:48 PM [facility]
== END ==
PROVIDERS: PCP Internal Medicine Adolescent Medicine; Visit Provider Internal Medicine Adolescent Medicine
DX: M25.561 Pain in right knee (principal)
CPT/HCPCS: 73562

== ENCOUNTER → 2022-08-16 16:03 | Outpatient (CLI) | payer MEDICARE, SELFPAY ==
[2022-08-16 16:55] LABS: Basophils # 0.1 K/mm3 (0-0.2); Basophils % 1.2 % (0.1-2.0); Eosinophils # 0.2 K/mm3 (0.0-0.4); Eosinophils % 3.8 % (0.1-12.0); Hematocrit 42.4 % (42.0-52.0); Hemoglobin 13.6 g/dL (14.1-18.0); Lymphocytes # 1.5 K/mm3 (0.7-4.5); Lymphocytes % 31.6 % (10-50); Mean Corpuscular HGB Conc 32.1 g/dL (31.8-35.4); Mean Corpuscular Hemoglobin 32.2 pg (27.0-31.2); Mean Corpuscular Volume 100.3 fl (80-94); Mean Platelet Volume 9.8 fl (7.4-10.4); Monocytes # 0.5 K/mm3 (0.1-1.0); Monocytes % 10.5 % (1.7-9.3); Neutrophils # 2.5 K/mm3 (1.8-7.8); Neutrophils % 52.9 % (37.0-80.0); Platelet Count 171 K/mm3 (142-424); Red Blood Count 4.23 M/mm3 (4.60-6.20); Red Cell Distribution Width 12.9 % (11.5-17.5); White Blood Count 4.7 K/mm3 (4.8-10.8)
[2022-08-16 18:38] LABS: Erythrocyte Sedimentation Rate 22 mm/hr (0-20)
[2022-08-16 19:02] LABS: C-Reactive Protein 3.1 mg/L (0-4)
== END ==
PROVIDERS: PCP Internal Medicine Adolescent Medicine; Visit Provider Ophthalmology
DX: G45.3 Amaurosis fugax (principal)
CPT/HCPCS: 36415; 85025; 85651; 86140

== ENCOUNTER → 2022-08-22 14:16 | Outpatient (CLI) | payer MEDICARE, SELFPAY ==
--- NOTE | 2022-08-22 | CA_ITS ---
FINAL REPORT TECHNIQUE: Color Doppler, duplex Doppler and gonsalez scale sonography of the bilateral neck arterial vasculature was performed. Velocities were measured in the carotid arteries. Stenosis evaluation based on the validated velocity criteria. CLINICAL HISTORY: .HTN, Rt eye visual changes x 1 day resolved FINDINGS: The peak systolic velocity of the right common carotid artery is 102 cm/s. The peak systolic velocity of the right internal carotid artery is 63 cm/s and end diastolic velocity 24 cm/s. The ICA/CCA ratio is 0.6. A mild amount of plaque is present. The right external carotid artery is patent. The right vertebral artery is patent with antegrade flow. The peak systolic velocity of the left common carotid artery is 85 cm/s. The peak systolic velocity of the left internal carotid artery is 78 cm/s and end diastolic velocity 26 cm/s. The ICA/CCA ratio is 0.9. A mild amount of plaque is present. The left external carotid artery is patent.The left vertebral artery is patent with antegrade flow. IMPRESSION: Less than 50% bilateral carotid stenoses. Bilateral patent vertebral arteries with antegrade flow. If indicated, CTA or MRA could further evaluate. Reviewed, Interpreted and Dictated by Yaw Bruce III, MD Transcribed by Myah Merritt Authenticated and [facility]
== END ==
PROVIDERS: PCP Internal Medicine Adolescent Medicine; Visit Provider Internal Medicine Adolescent Medicine
DX: H53.121 Transient visual loss, right eye (principal); G45.8 Other transient cerebral ischemic attacks and related syndromes
CPT/HCPCS: 93880

== ENCOUNTER → 2022-08-28 08:29 | Outpatient (CLI) | payer MEDICARE, SELFPAY ==
--- NOTE | 2022-08-28 08:31 | CA_ITS ---
APPROVED REPORT EXAM: Comprehensive 2D, Doppler, and color-flow Echocardiogram Electrical Subcontractor: Jayde Agustin CRT Ht: 5 ft 8 in Wt: 176lbs BSA: 1.94 BP: 146/78 mmHg Indications: Chest Pain, COPD, TIA Echo Enhancing Agent Indication: Rule out Shunt Agent(s) / Amount(s) Used: Agitated Saline 3 cc Comments: B/S APPEARS NEGATIVE 2D Dimensions LVOT 1.97 cm (M/F) 1.5-2.5 M-Mode Dimensions RVDd 3.15 cm (0.9-2.6) LA Diam 4.73 cm (1.9-4.0) LVDd 5.73 cm (3.5-5.7) Ao Diam 3.88 cm (2.0-3.7) LVDs 4.00 cm (3.5-5.7) IVSd 1.24 cm (0.6-1.1) PWd 0.92 cm (0.6-1.1) EF (Teich) 56.80% FS 30.20% EDV (Teich) 162.00 mL TAPSE 2.73 (<1.7) ESV (Teich) 70.00 mL LV Diastology E Decel Time 297.00 (160-240 msec) E/A Ratio 0.42 MED E' 5.50 (< 7 cm/sec) MED A' 10.50 cm/s E'/MED E' Ratio 12.64 (>14) LAT E' 6.60 (<10 cm/sec) LAT A' 13.20 cm/s E/LAT E' Ratio 10.53 (>14) Aortic Valve AO Peak GR. 6.90 mmHg Mitral Valve MV A Velocity 167.00 (40-130 cm/s) E/A Ratio 0.42 MV Decel. Time 297.00 (160-240 ms) Pulmonary Valve PV Peak Velocity 136.00 (50-150 cm/s) Tricuspid Valve TR P. Velocity 214.00 cm/s RAP Estimate 10.00 mmHg RVSP 28.30 mmHg Left Ventricle Left atrium is mildly enlarged, left ventricle is normal size mild concentric left ventricular hypertrophy, estimated ejection fraction 55% with no regional wall motion abnormality, grade 1 diastolic dysfunction seen without tissue Doppler evidence of raise left atrial pressure. Right Ventricle Right atrium and right ventricle are mildly enlarged with normal contractility. Atria Intra-atrial septum is intact, there is no flow across the interatrial septum, agitated saline contrast study did not identify intracardiac shunt. Aortic Valve Aortic valve is minimally thickened and fibrosed there is no aortic stenosis or aortic insufficiency. Mitral Valve Mitral valve is grossly normal, there is trace mitral regurgitation. Tricuspid Valve Tricuspid valve grossly normal, there is trace tricuspid regurgitation, tricuspid regurgitation jet velocity is inadequate for calculation of the right ventricular systolic pressure. Pulmonic Valve Pulmonic valve is poorly visualized. Great Vessels Aortic root is normal size. Inferior vena cava is poorly visualized. Pericardium No significant pericardial effusion noted. Conclusion 1. Mild biatrial enlargement, normal left ventricular size, mild concentric left ventricular hypertrophy, estimated ejection fraction 55% with no regional wall motion abnormality, grade 1 diastolic dysfunction seen without tissue Doppler evidence of raise left atrial pressure. 2. Mildly enlarged right ventricle with normal contractility. 3. Trace mitral and tricuspid regurgitation. 4. No significant pericardial effusion noted. 5. Inferior vena cava is poorly visualized. 6. Agitated saline contrast study did not identify intracardiac shunt. Electronically signed by : Tony Castro MD 08/29/2022 06:46:21
== END ==
PROVIDERS: PCP Internal Medicine Adolescent Medicine; Visit Provider Internal Medicine Adolescent Medicine
DX: Z86.73 Personal history of transient ischemic attack (TIA), and cerebral infarction without residual deficits (principal); G45.9 Transient cerebral ischemic attack, unspecified; H53.121 Transient visual loss, right eye
CPT/HCPCS: 93270; 93306

== ENCOUNTER → 2022-09-04 07:51 | Outpatient (CLI) | payer SELFPAY ==
--- NOTE | 2022-09-04 07:52 | CT_ITS ---
FINAL REPORT TECHNIQUE: Thin-section axial images were obtained through the heart and coronary arteries per CT coronary calcium score protocol. The study was performed with techniques to keep radiation doses as low as reasonably achievable (ALARA). Individual dose reduction technique using automated exposure control adjustment of mA and/or kv according to the patient's size were employed. CLINICAL HISTORY: screening. no family hx of [place] COMPARISON: None FINDINGS: On the axial images, there is calcification burden greatest in the proximal LAD with some calcified plaque disease in the distal left main and proximal and distal right coronary. This gives a coronary artery calcium score of 938 based on the Agatston scale. The coronary artery calcium score places the patient within the 71 percentile based on age and gender. The heart size is normal. There is no pleural pericardial effusion. Limited evaluation of the lungs reveals no suspicious nodule. IMPRESSION: Coronary artery calcium score 71 percentile. Reviewed, Interpreted and Dictated by Ambika Stephenson MD Transcribed by Malena Infante Authenticated and [facility]
== END ==
PROVIDERS: PCP Internal Medicine Adolescent Medicine; Visit Provider Internal Medicine Cardiovascular Disease
DX: Z13.6 Encounter for screening for cardiovascular disorders (principal)
CPT/HCPCS: 75571

== ENCOUNTER → 2022-10-10 06:49 | Outpatient (CLI) | payer MEDICARE, SELFPAY ==
--- NOTE | 2022-10-10 06:51 | CA_ITS ---
APPROVED REPORT Exam: Pharmacologic Technologist: Nai Santos, Ht: 5 ft 8 in Wt: 184 lbs BSA: 1.97 m2 HR: 58 bpm BP: 148/67 mmHg Medical History Medications: Levothyroxine,,,,, Aspirin,,,,, Losartan,,,,, Hydrochlorothiazide,,,,, Celecoxib,,,,, CetIRIZINE,,,,, RoSUVASTATIN,,,,, NifEDIPINE,,,,, NeBivolol,,,,, Stress Test Details Test: LEXISCAN Reason for pharmacologic stress test: physical limitation. HR Resting HR: 60 bpm Max Heart Rate (APMHR): 142.360062 bpm Max HR Achieved: 81 bpm Target HR (85% APMHR): 120.938251 bpm % of APMHR: 57.04 Recovery HR: 70 bpm BP Resting BP: 148.0/67.0 mmHg Max BP: 148.0/67.0 mmHg Recovery BP: 124.0/66.0 mmHg ECG Resting ECG: SR with PVC Clinical Exercise duration: 03:59 min Highest Stage Achieved: Exercise capacity: 1.0 METs Stress ECG Conclusion Symptoms: SOA with Lexiscan ST-T Changes: <1.5mm ST segment depression Test Summary REST . . . . . . . Resting REST 01:30 . . 60 . 148/ 67 . . Stage 1 01:00 . . 76 . . . . Stage 2 01:00 . . 79 . 132/ 64 . . Stage 3 01:00 . . 76 . 135/ 68 . . Stage 4 00:59 . . 77 . 122/ 69 . Stop exercise at 03:59 RECOVERY 01:00 . . 74 . . . . RECOVERY 02:00 . . 67 . 129/ 65 . . RECOVERY 02:21 . . 68 . 124/ 66 . . Electronically signed by : Tony Castro MD 10/11/2022 09:49:42
--- NOTE | 2022-10-10 06:51 | NM_ITS ---
APPROVED REPORT Exam: Nuclear Stress Test Indication: ABD CALICUM SCORE Patient Location: Outpatient Stress Tech: Nai Forde MD Tech:KRISTINE Bolaños RT(R)(N) Ht: 5 ft 8 in Wt: 174 lbs HR: 60 bpm BP: 148/67 mmHg BSA: 1.93 m2 TID: 0.96 BMI: 26.4 Procedure: Patient received 0.4 mg of intravenous Lexiscan, resting heart rate 60 bpm, resting blood pressure 148/67 mmHg, with Lexiscan maximum heart rate achieved was 81 bpm which is Less than 85 % of the maximum predicted heart rate and blood pressure was 148/67 mmHg. With Lexiscan, patient denied any complaint of chest pain. Electrocardiogram Resting electrocardiogram shows sinus rhythm right ventricular conduction delay nonspecific ST-T changes, with Lexiscan there is less than 1.[address] segment depression noted on the baseline EKG. The EKG portion of the Lexiscan is nondiagnostic. Cardiac Stress and Resting SPECT Images: Cardiac Stress and Resting SPECT images were obtained using technetium 99m Myoview 30.4 mCi stress and 10.60 mCi at rest. Gated SPECT analysis of segmental wall motion and calculation of the ejection fraction also done. Prone images were also obtained. Cardiac prone images show uniform myocardial activity without segmental perfusion abnormality, computer derived ejection fraction is 66% with no regional wall motion abnormality, right ventricle is mildly enlarged with normal contractility. Conclusion: 1. The EKG portion of the Lexiscan is nondiagnostic. 2. No scintigraphic evidence of reversible ischemia seen, computer derived ejection fraction is 66% with no regional wall motion abnormality, right ventricle is mildly enlarged with normal contractility. 3. Normal myocardial perfusion imaging. Electronically signed by : Tony Castro MD 10/11/2022 09:52:12
== END ==
PROVIDERS: PCP Internal Medicine Adolescent Medicine; Visit Provider Internal Medicine Cardiovascular Disease
DX: G45.8 Other transient cerebral ischemic attacks and related syndromes; I51.89 Other ill-defined heart diseases; R93.1 Abnormal findings on diagnostic imaging of heart and coronary circulation; R94.31 Abnormal electrocardiogram [ECG] [EKG]; G47.33 Obstructive sleep apnea (adult) (pediatric)
CPT/HCPCS: 78452; 93017; A9502; J2785

== ENCOUNTER → 2023-04-10 12:10 | Outpatient (CLI) | payer MEDICARE, SELFPAY ==
[2023-04-10 13:41] LABS: Alanine Aminotransferase 23 U/L (12-78); Albumin Level 4.5 g/dl (3.5-5.0); Alkaline Phosphatase 69 U/L (38-126); Anion Gap 14.4 mEq/L (5-15); Aspartate Amino Transferase 34 U/L (17-59); Bilirubin,Indirect 0.5 mg/dL (0.0-0.9); Bilirubin,Total 0.5 mg/dl (0.2-1.3); Bilirubin,Unconjugated 0.7 mg/dL (0.0-1.1); Blood Urea Nitrogen 25 mg/dl (9-20); Calcium 9.6 mg/dl (8.4-10.2); Carbon Dioxide 25 mmol/L (22.0-30.0); Chloride 107 mmol/L (98-107); Chol/HDL Ratio 4.5 (1-3.5); Cholesterol 168 mg/dl (140-200); Estimated Glomerular Filt Rate 49 ml/min (>60); GFR (African American) 59 ML/MIN (>60); Glucose 82 mg/dl (74-100); HDL Cholesterol 37 mg/dl (40-60); Potassium 4.4 mmoL/L (3.5-5.1); Sodium 142 mmol/L (136-145); Total Protein,Serum 7.7 g/dl (6.3-8.2); Triglycerides 198 mg/dl (30-150); VLDL Cholesterol 40 mg/dL (0-40)
[2023-04-10 13:53] LABS: Direct LDL Cholesterol 77.03 mg/dL (100-129)
== END ==
PROVIDERS: Internal Medicine; PCP Internal Medicine Adolescent Medicine; Visit Provider Internal Medicine Cardiovascular Disease
DX: I10 Essential (primary) hypertension; I48.0 Paroxysmal atrial fibrillation; G47.33 Obstructive sleep apnea (adult) (pediatric); R93.1 Abnormal findings on diagnostic imaging of heart and coronary circulation; R94.31 Abnormal electrocardiogram [ECG] [EKG]; G45.8 Other transient cerebral ischemic attacks and related syndromes
CPT/HCPCS: 36415; 80048; 80061; 80076

== ENCOUNTER → 2023-05-16 08:53 | Outpatient (POV) | payer MEDICARE, SELFPAY ==
[2023-05-16 09:23] VITALS: BP 140/78; PULSE 65; RESP 18; O2SAT 93; BMI 27.3
--- NOTE | 2023-05-16 10:20 | EXP.PAIN.OV ---
HPI Data of Consult Patient: new to practice Consult date: 05/16/23 Requesting Physician: Davey Pro CRNA Primary Care Provider: Raymond Puckett MD Consult Narrative Reason for consult: Lumbar back pain. Bilateral hip and leg radicular symptoms. History of present illness: Mr. Joyner is a 77 year old male who comes our clinic today for an initial visit regarding chronic low back pain he describes as constant, dull, aching. He rates his pain 7/10. Patient also complains of bilateral hip radicular symptoms. Upon examination patient has extreme point tenderness over the bilateral sacroiliac joints. Patient was sent to us from Dr. Lunsford. Patient states Dr. Lunsford is not interested in doing any surgery at this time. Patient's lumbar MRI does show severe diffuse degenerative changes multilevel lumbar spine. Severe spinal stenosis at L4-5 with degenerative grade 1 slippage at the same level. Patient currently taking NSAIDs which he reports does help to some degree. Patient has been to physical therapy and is currently attempting home exercise program. He also reports both physical therapy and home exercise program does increase pain significantly. He has difficulty ambulating any distance secondary to bilateral hip pain as well as low back pain intensifying. Difficulty sitting for any length of time. CC: Davey Pro CRNA [facility] Disclaimer: The information contained in this section may have been updated after the patient was seen, as this information can be updated by other users. Medical History (Updated 05/16/23 @ 10:23 by Davey Pro CRNA) Abnormal electrocardiogram [ECG] [EKG] Agatston coronary artery calcium score greater than 400 Diastolic dysfunction Hypertension TEO (obstructive sleep apnea) Paroxysmal A-fib Stenosis of carotid artery TIA (transient ischemic attack) Social History (Updated 05/16/23 @ 09:24 by Flaca Victoria RN) Smoking Status: Never smoker alcohol intake: current substance use type: denies use current occupational status: employed Travel in the last 8 weeks: None household members: spouse housing: house current occupation: self-employeed caffeine: Yes Meds Home Medications and Allergies Home Medications Medication Instructions Recorded Confirmed Type cetirizine 10 mg chewable tablet 10 mg PO DAILY ALLERGIES 09/17/17 05/16/23 History levothyroxine 100 mcg tablet 100 mg PO DAILY HYPOTHYROID 09/17/17 05/16/23 History memantine ER 28 mg-donepezil 10 mg 28 each PO DAILY ALZHEIMERS 09/17/17 05/16/23 History capsule sprinkle,ext.release 24 hr PREVENTATIVE nebivolol 5 mg tablet 5 mg PO DAILY BLOOD PRESSURE 09/17/17 05/16/23 History rosuvastatin 40 mg tablet 40 mg PO HS Cholesterol 09/17/17 05/16/23 History nmnmkwkw-saj-nlfqh 200 mcg-lycop 1 each PO DAILY Supplement 01/22/21 05/16/23 History 175 mcg-lutei 250 mcg-herb 178 tablet nifedipine 30 mg tablet,extended 30 mg PO DAILY High blood pressure 01/22/21 05/16/23 History release celecoxib 100 mg capsule 100 mg PO DAILY Pain 08/30/22 05/16/23 History aspirin 81 mg tablet,delayed 81 mg PO DAILY Blood Thinner 05/16/23 05/16/23 History release (Adult Low Dose Aspirin) hydrochlorothiazide 12.5 mg tablet 12.5 mg PO DAILY Fluid 05/16/23 05/16/23 History losartan 100 mg tablet 50 mg PO DAILY BLOOD PRESSURE 05/16/23 05/16/23 History New Prescriptions to Start Prescriptions: Allergies Allergy/AdvReac Type Severity Reaction Status Date / Time oxycodone [From PERCOCET] Allergy Unknown Verified 04/10/23 11:23 Objective Vital signs: Pulse Resp BP Pulse Ox O2 Del Method 65 18 140/78 93 L Room Air 05/16/23 09:23 05/16/23 09:23 05/16/23 09:23 05/16/23 09:23 05/16/23 09:23 Opioid Risk Tool Opioid Risk Tool-Male Family hx alcohol abuse: No Family hx illegal drugs: No Family hx rx drug abuse: No Personal hx alcohol abuse: No Personal hx illegal drugs: No Personal hx rx drug
== END ==
PROVIDERS: PCP Internal Medicine Adolescent Medicine; Visit Provider Nurse Anesthetist, Certified Registered
DX: M48.061 Spinal stenosis, lumbar region without neurogenic claudication; M46.1 Sacroiliitis, not elsewhere classified; M51.16 Intervertebral disc disorders with radiculopathy, lumbar region
CPT/HCPCS: 99202; G0463

== ENCOUNTER 2023-05-27 09:19 | Day surgery (SDC) | payer MEDICARE, SELFPAY ==
[2023-05-27 09:12] VITALS: BP 144/75; PULSE 62; RESP 18; TEMP 36.4; O2SAT 97; BMI 27.3
[2023-05-27 09:49] VITALS: BP 138/74; PULSE 56; RESP 18; O2SAT 97
--- NOTE | 2023-05-27 09:55 | EXP.PAIN.PRO ---
Procedure Date: 05/27/23 Time: 09:40 Anesthesiologist:: Davey Pro CRNA Complications:: None Pre-procedure Diagnosis:: Degenerative disc lumbar spine multilevels. Lumbar radiculopathy. Lumbar spinal stenosis. Post-procedure Diagnosis:: Same. Indications for Procedure:: Patient is a very pleasant 77-year-old male that comes our clinic today for lumbar epidural steroid injection at the L4-5 level. Patient has low back pain he describes as constant, dull, aching. He rates his pain 7/10. Patient also complains of bilateral hip and leg radicular symptoms. Procedure Details:: Procedure: Lumbar epidural steroid injection under fluoroscopy Informed consent was obtained and the risks and benefits of the procedure were explained to the patient. The patient was taken to the procedure room and noninvasive monitors placed, including noninvasive blood pressure cuff and pulse oximeter. The back was viewed using C-arm Fluoroscopy and prepped using Chloraprep as a cleansing solution and the L4-L5 interspace was palpated. Skin and subcutaneous tissues were anesthetized using lidocaine 1.5% and a 25-gauge needle. After this, an 18-gauge Touhy epidural needle was placed into the L4-L5 interspace and advanced using fluoroscopic guidance and loss of resistance to air until the epidural space was encountered. After confirmation of needle placement in the epidural space, with dye, a solution containing normal saline, 3 mL and Depo-Medrol 80 mg were incrementally injected into the lumbar epidural space. The patient tolerated the procedure well with no complications. The patient was observed in the Pain Clinic and then discharged home neurologically intact. Plan and Disposition:: Patient was discharged without incident.
[2023-05-27 10:18] VITALS: BP 129/73; PULSE 63; RESP 18; O2SAT 97
[2023-05-27 10:25] VITALS: BP 129/73; PULSE 63; RESP 18; O2SAT 97
== END 2023-05-27 09:49 | disposition home or self-care (01) ==
LOC: SC.PAINP 09:20
PROVIDERS: PCP Internal Medicine Adolescent Medicine; Visit Provider Nurse Anesthetist, Certified Registered
DX: M51.16 Intervertebral disc disorders with radiculopathy, lumbar region (principal); M48.061 Spinal stenosis, lumbar region without neurogenic claudication
CPT/HCPCS: 62323; J1040

== ENCOUNTER → 2023-06-18 11:31 | Outpatient (POV) | payer MEDICARE, SELFPAY ==
--- NOTE | 2023-06-18 12:01 | EXP.PAIN.SOA ---
[facility] Pain Management SOAP Note Subjective:: Patient is a pleasant 77-year-old male who presents today for follow-up of lumbar epidural steroid injection L4-L5 on 05/27/2023. We are currently treating the patient for degenerative disc disease of lumbar spine with lumbar radiculopathy symptoms, lumbar spinal stenosis, sacroiliitis. Today he rates his pain a 0 out of 10. Patient states he had 100% relief following this injection lasting approximately 10 days. He states he did go on a hunting trip and that they walk typically 5 to 8 miles and he did have worsening pain in and around his bilateral hips. Patient does describe this as an aching sensation that is worse with increased activity. Patient does state today that its not bad and he is doing well. Patient is not on any scheduled medications. His Kane is [phone]. Its been reviewed and appropriate. Review of Systems: General: No recent weight changes, no fever, no sleep disturbances Respiratory: No cough, no shortness of air, no recurring pulmonary infections Cardiovascular/peripheral vascular: No chest pain, no palpitations, no edema, no shortness of breath Gastrointestinal: No new onset incontinence, normal bowel movements reported Genitourinary: No new onset incontinence Musculoskeletal: Low back pain, bilateral hip pain Psychiatric: [Normal mood/affect] Neurological: [Denies weakness in extremities], [denies balance issues] Objective:: Physical Exam: General: Alert and oriented x3, no acute distress, pleasant and cooperative Lungs: Respirations even and unlabored, symmetrical chest expansion Eyes: PERRL Musculoskeletal: Flexion and extension of lumbar [spine] somewhat guarded secondary to pain, [antalgic gait noted] point tenderness along bilateral SIs with positive bilateral Wilda's, Christian's, Gaenslen's, compression and distraction exam Neurological: Speech clear, no gross sensory deficit Assessment:: Degenerative disc disease of lumbar spine with lumbar radiculopathy symptoms, lumbar spinal stenosis, sacroiliitis bilaterally Plan:: Patient has had significant improvement of his low back pain following his lumbar epidural however he is currently experiencing worsening pain in his bilateral hips however this is dependent on activity. Patient did have point tenderness along his bilateral SIs and a positive bilateral Wilda's, Christian's, Gaenslen's, compression and distraction exam. I have discussed with the patient in future he may benefit from bilateral SI injections. Patient does state currently that the pain is manageable and that it has gone back down following his hunting trip. We will follow-up with the patient in 2 months for reevaluation of symptoms and plan of care. Patient has been instructed to contact the clinic with any concerns before the next appointment. Dr. Styles has reviewed this note and agrees with this plan of care. This note was dictated using voice recognition software and make contain errors or omissions. [facility] Disclaimer: The information contained in this section may have been updated after the patient was seen, as this information can be updated by other users. 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
[2023-06-18 14:51] VITALS: BP 156/87; PULSE 55; RESP 18; O2SAT 96; BMI 27.0
== END ==
PROVIDERS: PCP Internal Medicine Adolescent Medicine; Visit Provider Nurse Practitioner Family
DX: M51.16 Intervertebral disc disorders with radiculopathy, lumbar region (principal); M48.061 Spinal stenosis, lumbar region without neurogenic claudication; M46.1 Sacroiliitis, not elsewhere classified
CPT/HCPCS: 99212; G0463

== ENCOUNTER → 2023-08-18 08:28 | Outpatient (POV) | payer MEDICARE, SELFPAY ==
[2023-08-18 08:39] VITALS: BP 145/79; PULSE 62; RESP 18; O2SAT 93; BMI 27.6
--- NOTE | 2023-08-18 08:45 | EXP.PAIN.SOA ---
[facility] Pain Management SOAP Note Subjective:: Patient is a pleasant 77-year-old male who presents today for follow-up. We are currently treating the patient for degenerative disc disease of lumbar spine with lumbar radiculopathy symptoms, lumbar spinal stenosis, sacroiliitis. Today he rates his pain a 5-6 out of 10. Patient denies any new trauma or injury. He does state that he has been experiencing worsening pain in his low back and hips. Patient describes this as an aching sensation with some numbness. He states that his right side is worse than the left. Patient states that it does affect his ability to perform ADLs including cooking or cleaning or even simple ambulation. Patient is interested in any help we may be able to provide. Patient is not on any scheduled medications. His Kane has been reviewed and is appropriate. Review of Systems: General: No recent weight changes, no fever, no sleep disturbances Respiratory: No cough, no shortness of air, no recurring pulmonary infections Cardiovascular/peripheral vascular: No chest pain, no palpitations, no edema, no shortness of breath Gastrointestinal: No new onset incontinence, normal bowel movements reported Genitourinary: No new onset incontinence Musculoskeletal: Low back pain, hip pain Psychiatric: [Normal mood/affect] Neurological: [Denies weakness in extremities], [denies balance issues] Objective:: Physical Exam: General: Alert and oriented x3, no acute distress, pleasant and cooperative Lungs: Respirations even and unlabored, symmetrical chest expansion Eyes: PERRL Musculoskeletal: Flexion and extension of lumbar [spine] somewhat guarded secondary to pain, [antalgic gait noted] point tenderness along bilateral SIs with positive bilateral Wilda's, Christian's, Gaenslen's, compression and distraction exam Neurological: Speech clear, no gross sensory deficit Assessment:: Degenerative disc disease of lumbar spine with lumbar radiculopathy symptoms, lumbar spinal stenosis, sacroiliitis Plan:: Patient is experiencing worsening pain in his low back and hips with limited range of motion. Patient had point tenderness along his bilateral SIs and a positive bilateral Wilda's, Christian's, Gaenslen's, compression and distraction exam. I have discussed with the patient that he may benefit from bilateral SI injections. Risk and benefits were discussed with the patient and he would like to proceed forward with this plan of care. Patient will be scheduled for bilateral SI injections under fluoroscopy. Patient has been instructed to contact the clinic with any concerns before the next appointment. Dr. Styles has reviewed this note and agrees with this plan of care. This note was dictated using voice recognition software and make contain errors or omissions. [facility] Disclaimer: The information contained in this section may have been updated after the patient was seen, as this information can be updated by other users. 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
== END ==
PROVIDERS: PCP Internal Medicine Adolescent Medicine; Visit Provider Nurse Practitioner Family
DX: M51.16 Intervertebral disc disorders with radiculopathy, lumbar region (principal); M48.061 Spinal stenosis, lumbar region without neurogenic claudication; M46.1 Sacroiliitis, not elsewhere classified
CPT/HCPCS: 99212; G0463

== ENCOUNTER 2023-09-09 07:51 | Day surgery (SDC) | payer MEDICARE, SELFPAY ==
[2023-09-09 08:05] VITALS: BP 135/73; PULSE 58; RESP 16; O2SAT 94; BMI 25.8
[2023-09-09 08:23] VITALS: BP 131/78; PULSE 59; RESP 18; O2SAT 98
[2023-09-09] MEDS: BUPIVACAINE 0.25% 10ML INJ 25 MG IJ (08:23)
[2023-09-09] MEDS: LIDOCAINE 1% 5ML PF VIAL 5 ML (08:23)
[2023-09-09] MEDS: methylPREDNISolone ACETATE 80MG/ML VIAL 80 MG (08:23)
[2023-09-09 08:25] VITALS: BP 131/78; PULSE 59; RESP 18; O2SAT 98
[2023-09-09 08:30] VITALS: BP 129/82; PULSE 57; RESP 16; O2SAT 95
--- NOTE | 2023-09-09 08:40 | P.PCN_ITS ---
Procedure Date: 09/09/23 Time: 08:20 Anesthesiologist:: Davey Pro CRNA Complications:: None Pre-procedure Diagnosis:: Bilateral sacroiliitis. Degenerative disc lumbar spine multilevels. Lumbar radiculopathy. Lumbar spondylosis. Post-procedure Diagnosis:: Same. Indications for Procedure:: Patient is a very pleasant 77-year-old male that comes our clinic today for bilateral sacroiliac joint injections. Patient has extreme point tenderness over the bilateral sacroiliac joints. Patient describes difficulty transitioning from sitting to standing. Patient also reports increased pain with ambulation secondary to posterior hip pain as well as low lumbar back pain off the midline bilaterally. Procedure Details:: Procedure: Bilateral sacroiliac joint injections under fluoroscopy Informed consent was obtained and the risks and benefits of the procedure were explained to the patient.~ The patient was taken to the procedure room and noninvasive monitors were placed including a noninvasive blood pressure cuff and pulse oximeter.~ The patient was placed prone on the procedure table. Both hips were cleansed using Betadine as a cleansing solution. C-arm fluoroscopy was used to view the right sacroiliac joint.~ The skin and subcutaneous tissues were anesthetized using lidocaine 1.5% and a 25-gauge needle.~ After this, a 22-gauge spinal needle was inserted under fluoroscopic guidance into the inferior aspect of the right sacroiliac joint.~ Omnipaque dye was injected and good spread was seen throughout the joint.~ After this, approximately 5 mL of bupivacaine, 0.25% and Depo-Medrol, 40 mg was incrementally injected into the right sacroiliac joint. We then moved to the left sacroiliac joint.~ The skin and subcutaneous tissues were anesthetized using lidocaine 1.5% and a 25-gauge needle.~ After this, a 22- gauge spinal needle was inserted under fluoroscopic guidance into the inferior aspect of the left sacroiliac joint.~ Omnipaque dye was injected and good spread was seen throughout the joint. After this, approximately 5 mL of bupivacaine, 0.25% and Depo-Medrol, 40 mg was incrementally injected into the left sacroiliac joint.~ The patient tolerated the procedure well with no complications. The patient was observed in the Pain Clinic and then was discharged home neurologically intact. Plan and Disposition:: Patient was discharged without incident.
== END 2023-09-09 08:30 | disposition home or self-care (01) ==
LOC: SC.PAINP 07:53
PROVIDERS: PCP Internal Medicine Adolescent Medicine; Visit Provider Nurse Anesthetist, Certified Registered
DX: M46.1 Sacroiliitis, not elsewhere classified (principal); M51.16 Intervertebral disc disorders with radiculopathy, lumbar region; M47.26 Other spondylosis with radiculopathy, lumbar region
CPT/HCPCS: 27096; G0260; J1040

== ENCOUNTER → 2023-09-24 08:28 | Outpatient (POV) | payer MEDICARE, SELFPAY ==
[2023-09-24 08:42] VITALS: BP 140/77; PULSE 57; RESP 18; O2SAT 94; BMI 27.3
--- NOTE | 2023-09-24 08:43 | EXP.PAIN.SOA ---
[facility] Pain Management SOAP Note Subjective:: Patient is a pleasant 78-year-old male who presents today for follow-up of bilateral SI injections on 09/09/2023. We are currently treating the patient for degenerative disc disease of lumbar spine with lumbar radiculopathy symptoms, lumbar spinal stenosis, sacroiliitis. Today he rates his pain a 0 out of 10. Patient states he has had approximately 90 to 100% relief following this injection. He denies any new trauma or injury or any changes to his pain. He states he has been able to increase his activity with decreased pain symptoms and overall has better function. Patient does state that he is fixing to leave for [place] and he will be there until October. His Kane has been reviewed and is appropriate. Review of Systems: General: No recent weight changes, no fever, no sleep disturbances Respiratory: No cough, no shortness of air, no recurring pulmonary infections Cardiovascular/peripheral vascular: No chest pain, no palpitations, no edema, no shortness of breath Gastrointestinal: No new onset incontinence, normal bowel movements reported Genitourinary: No new onset incontinence Musculoskeletal: Low back pain Psychiatric: [Normal mood/affect] Neurological: [Denies weakness in extremities], [denies balance issues] Objective:: Physical Exam: General: Alert and oriented x3, no acute distress, pleasant and cooperative Lungs: Respirations even and unlabored, symmetrical chest expansion Eyes: PERRL Musculoskeletal: Flexion and extension of lumbar [spine] somewhat guarded secondary to pain Neurological: Speech clear, no gross sensory deficit Assessment:: Degenerative disc disease of lumbar spine with lumbar radiculopathy symptoms, lumbar spinal stenosis, bilateral sacroiliitis Plan:: Patient has had significant improvement following his bilateral SI injections and does not require any additional injection therapy at this time. Patient will return to clinic in 3 months for reevaluation of symptoms and plan of care. Patient has been instructed to contact the clinic with any concerns before the next appointment. Dr. Styles has reviewed this note and agrees with this plan of care. This note was dictated using voice recognition software and make contain errors or omissions. [facility] Disclaimer: The information contained in this section may have been updated after the patient was seen, as this information can be updated by other users. 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
== END ==
LOC: SC.PAIN 08:29
PROVIDERS: PCP Internal Medicine Adolescent Medicine; Visit Provider Nurse Practitioner Family
DX: M51.16 Intervertebral disc disorders with radiculopathy, lumbar region (principal); M48.061 Spinal stenosis, lumbar region without neurogenic claudication; M46.1 Sacroiliitis, not elsewhere classified
CPT/HCPCS: 99212; G0463

== ENCOUNTER 2023-10-14 10:07 | Outpatient (CLI) | payer MEDICARE, SELFPAY ==
--- NOTE | 2023-10-14 10:16 | XR_ITS ---
FINAL REPORT CLINICAL HISTORY: ACUTE BILATERAL LOW BACK PAIN W/OUT SCIATICA COMPARISON: None FINDINGS: 5 views of the lumbar spine were obtained. There is no evidence of fracture or dislocation. The vertebral alignment is normal. There are moderate to severe degenerative changes in the lumbar spine, with multilevel osteophytes and disc degenerative changes. Multilevel facet arthropathy is present as well particularly in the lower lumbar spine. No paraspinous soft tissue abnormalities identified. IMPRESSION: Moderate to severe degenerative changes as described. No acute bony abnormality is identified. Reviewed, Interpreted and Dictated by Yaw Bruce III, MD Transcribed by Carie Solorio Authenticated and [facility]
== END 2023-10-14 23:59 ==
PROVIDERS: PCP Internal Medicine Adolescent Medicine; Visit Provider Nurse Practitioner Family
DX: M54.50 Low back pain, unspecified (principal)
CPT/HCPCS: 72110

== ENCOUNTER 2023-12-17 10:13 | Outpatient (POV) | payer MEDICARE, SELFPAY ==
[2023-12-17 10:14] VITALS: BP 153/76; PULSE 60; RESP 18; O2SAT 97; BMI 27.5
--- NOTE | 2023-12-17 10:34 | EXP.PAIN.SOA ---
[facility] Pain Management SOAP Note Subjective:: Patient is a pleasant 78-year-old male who presents today for follow-up. Today he rates his pain a 6 out of 10. Patient states his pain is all in his low back along his bilateral hips. Patient denies any radiating symptoms into his lower extremities. He describes this is as an aching, throbbing sensation that is worse with increased activity or ambulation. Patient denies any new injuries. He does state that he walked a lot to go turkey hunting with a group of guys and feels like this may have aggravated his overall symptoms. Patient did previously have bilateral SI injections back at the very beginning of September that did provide 90 to 100% relief and has worked really well up until this point. Patient is interested in repeating these injections. He states while these injections were helping he had much better improved function and was able to increase his activity. His Kane has been reviewed and is appropriate. Review of Systems: General: No recent weight changes, no fever, no sleep disturbances Respiratory: No cough, no shortness of air, no recurring pulmonary infections Cardiovascular/peripheral vascular: No chest pain, no palpitations, no edema, no shortness of breath Gastrointestinal: No new onset incontinence, normal bowel movements reported Genitourinary: No new onset incontinence Musculoskeletal: Low back pain, bilateral hip pain Psychiatric: [Normal mood/affect] Neurological: [Denies weakness in extremities], [denies balance issues] Objective:: Physical Exam: General: Alert and oriented x3, no acute distress, pleasant and cooperative Lungs: Respirations even and unlabored, symmetrical chest expansion Eyes: PERRL Musculoskeletal: Flexion and extension of lumbar [spine] somewhat guarded secondary to pain, [antalgic gait noted] point tenderness along bilateral SIs with positive bilateral Wilda's, Christian's, Gaenslen's, compression and distraction exam Neurological: Speech clear, no gross sensory deficit Assessment:: Degenerative disc disease of lumbar spine with lumbar radiculopathy symptoms, bilateral hip pain, sacroiliitis Plan:: Patient is experiencing worsening pain in his low back and bilateral hips with limited range of motion of his lumbar spine. Patient did have point tenderness along his bilateral SIs with positive bilateral Wilda's, Christian's, Gaenslen's, compression and distraction exam. I have discussed with patient that he may benefit from repeat SI injections. Risk and benefits were discussed with the patient and he would like to proceed forward with this plan of care. Patient did previously have 90 to 100% improvement with his last injections that were in the first week of September that did last up until his recent turkey hunting outing. Patient has continued to do at home exercising and stretching between his last injection and now with minimal relief. We will schedule the patient for bilateral SI injections under fluoroscopy. Patient has been instructed to contact the clinic with any concerns before the next appointment. Dr. Styles has reviewed this note and agrees with this plan of care. This note was dictated using voice recognition software and make contain errors or omissions. [facility] Disclaimer: The information contained in this section may have been updated after the patient was seen, as this information can be updated by other users. 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
== END 2023-12-17 23:59 ==
LOC: SC.PAIN 10:14
PROVIDERS: PCP Internal Medicine Adolescent Medicine; Visit Provider Nurse Practitioner Family
DX: M51.16 Intervertebral disc disorders with radiculopathy, lumbar region (principal); M25.551 Pain in right hip; M25.552 Pain in left hip; M46.1 Sacroiliitis, not elsewhere classified
CPT/HCPCS: 99212; G0463

== ENCOUNTER 2023-12-30 09:36 | Day surgery (SDC) | payer MEDICARE, SELFPAY ==
[2023-12-30 09:47] VITALS: BP 136/74; PULSE 65; RESP 16; TEMP 36.2; O2SAT 96; BMI 27.3
[2023-12-30 09:54] VITALS: BP 122/73; PULSE 62; RESP 18; O2SAT 96
[2023-12-30] MEDS: LIDOCAINE 1% 5ML PF VIAL 5 ML (09:54)
[2023-12-30] MEDS: methylPREDNISolone ACETATE 80MG/ML VIAL 80 MG (09:54)
[2023-12-30] MEDS: BUPIVACAINE 0.25% 10ML INJ 25 MG IJ (09:54)
[2023-12-30 09:57] VITALS: BP 122/73; PULSE 58; RESP 18; O2SAT 96
[2023-12-30 10:00] VITALS: BP 142/67; PULSE 57; RESP 16; O2SAT 96
--- NOTE | 2023-12-30 10:40 | P.PCN_ITS ---
Procedure Date: 12/30/23 Time: 10:20 Anesthesiologist:: Davey Pro CRNA Complications:: None Pre-procedure Diagnosis:: Bilateral sacroiliitis Post-procedure Diagnosis:: Same Indications for Procedure:: Patient is a very pleasant 78-year-old male that comes our clinic today for bilateral sacroiliac joint injections of cortisone. Patient reports pain in the low lumbar back off the midline bilaterally. Also, bilateral posterior hip pain. Upon examination he has extreme point tenderness over the bilateral sacroiliac joints. He rates his pain 7/10. Procedure Details:: Procedure: Bilateral sacroiliac joint injections under fluoroscopy Informed consent was obtained and the risks and benefits of the procedure were explained to the patient.~ The patient was taken to the procedure room and noninvasive monitors were placed including a noninvasive blood pressure cuff and pulse oximeter.~ The patient was placed prone on the procedure table. Both hips were cleansed using Betadine as a cleansing solution. C-arm fluoroscopy was used to view the right sacroiliac joint.~ The skin and subcutaneous tissues were anesthetized using lidocaine 1.5% and a 25-gauge needle.~ After this, a 22-gauge spinal needle was inserted under fluoroscopic guidance into the inferior aspect of the right sacroiliac joint.~ Omnipaque dye was injected and good spread was seen throughout the joint.~ After this, approximately 5 mL of bupivacaine, 0.25% and Depo-Medrol, 40 mg was incrementally injected into the right sacroiliac joint. We then moved to the left sacroiliac joint.~ The skin and subcutaneous tissues were anesthetized using lidocaine 1.5% and a 25-gauge needle.~ After this, a 22- gauge spinal needle was inserted under fluoroscopic guidance into the inferior aspect of the left sacroiliac joint.~ Omnipaque dye was injected and good spread was seen throughout the joint. After this, approximately 5 mL of bupivacaine, 0.25% and Depo-Medrol, 40 mg was incrementally injected into the left sacroiliac joint.~ The patient tolerated the procedure well with no complications. The patient was observed in the Pain Clinic and then was discharged home neurologically intact. Plan and Disposition:: Patient was discharged without incident.
== END 2023-12-30 10:00 | disposition home or self-care (01) ==
LOC: SC.PAINP 09:37
PROVIDERS: PCP Internal Medicine Adolescent Medicine; Visit Provider Nurse Anesthetist, Certified Registered
DX: M46.1 Sacroiliitis, not elsewhere classified (principal)
CPT/HCPCS: 27096; G0260; J1010

== ENCOUNTER 2024-01-14 09:55 | Outpatient (POV) | payer MEDICARE, SELFPAY ==
[2024-01-14 10:05] VITALS: BP 116/74; PULSE 60; RESP 18; O2SAT 95; BMI 27.3
--- NOTE | 2024-01-14 10:05 | A.OFFVIS_ITS ---
[facility] Pain Management SOAP Note Subjective:: Patient is a pleasant 78-year-old male who presents today for follow-up of bilateral SI injections on 12/30/2023. Patient rates his pain today a 0 out of 10. He denies any new injury or trauma. He does state that he has had significant improvement following this injection and feels like he is able to move around easier with overall decreased pain and feels more functional. Patient did get these injections back in October that did also provide significant relief of upwards of 90 to 100% improvement lasting several months. His Kane has been reviewed and is appropriate. Review of Systems: General: No recent weight changes, no fever, no sleep disturbances Respiratory: No cough, no shortness of air, no recurring pulmonary infections Cardiovascular/peripheral vascular: No chest pain, no palpitations, no edema, no shortness of breath Gastrointestinal: No new onset incontinence, normal bowel movements reported Genitourinary: No new onset incontinence Musculoskeletal: Low back pain Psychiatric: [Normal mood/affect] Neurological: [Denies weakness in extremities], [denies balance issues] Objective:: Physical Exam: General: Alert and oriented x3, no acute distress, pleasant and cooperative Lungs: Respirations even and unlabored, symmetrical chest expansion Eyes: PERRL Musculoskeletal: Flexion and extension of lumbar [spine] somewhat guarded secondary to pain, [antalgic gait noted] Neurological: Speech clear, no gross sensory deficit Assessment:: Degenerative disc disease of lumbar spine with lumbar radiculopathy symptoms, sacroiliitis, hip pain Plan:: Patient is doing well following his bilateral SI injections and does not require any additional injection therapy at this time. Patient will return to clinic at his convenience. We will wait to hear from him for his next follow-up. He acknowledges understanding and agrees with this plan of care. Patient has been instructed to contact the clinic with any concerns before the next appointment. Dr. Styles has reviewed this note and agrees with this plan of care. This note was dictated using voice recognition software and make contain errors or omissions. [facility] Disclaimer: The information contained in this section may have been updated after the patient was seen, as this information can be updated by other users. 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
== END 2024-01-14 23:59 | disposition home or self-care (01) ==
LOC: SC.PAIN 09:56
PROVIDERS: PCP Internal Medicine Adolescent Medicine; Visit Provider Nurse Practitioner Family
DX: M51.16 Intervertebral disc disorders with radiculopathy, lumbar region (principal); M46.1 Sacroiliitis, not elsewhere classified; M25.559 Pain in unspecified hip
CPT/HCPCS: 99212; G0463

== ENCOUNTER 2024-04-07 08:33 | Outpatient (CLI) | payer MEDICARE, SELFPAY ==
[2024-04-08 10:03] LABS: Prolactin 13.9 ng/mL (3.6-25.2)
[2024-04-12 20:07] LABS: Free Testosterone (Direct) 1.6 pg/mL (6.6-18.1); Testosterone, Total, LC/MS 235.7 ng/dL (264.0-916.0)
== END 2024-04-07 23:59 | disposition home or self-care (01) ==
LOC: LAB 08:35
PROVIDERS: PCP Internal Medicine Adolescent Medicine; Visit Provider Urology
DX: N52.9 Male erectile dysfunction, unspecified (principal)
CPT/HCPCS: 36415; 84146

== ENCOUNTER 2025-01-31 16:12 | Outpatient (CLI) | payer MEDICARE, SELFPAY ==
--- NOTE | 2025-01-31 16:22 | XR_ITS ---
FINAL REPORT CLINICAL HISTORY: PAIN IN LEFT HIP OTHER CHRONIC PAIN COMPARISON: None FINDINGS: SACROILIAC JOINTS: AP and oblique views of the sacroiliac joints were obtained. There is no prior exam for comparison. There is no acute fracture or other acute osseous abnormality. The SI joints are symmetric bilaterally. The sacrococcygeal articulation appears within normal limits. No evidence of ankylosis or bony erosions is seen. No acute soft tissue abnormality is present. IMPRESSION: No acute bony abnormality of the sacroiliac joints. Reviewed, Interpreted and Dictated by Gardenia Haines MD Transcribed by Carie Solorio Authenticated and [facility]
--- NOTE | 2025-01-31 16:22 | XR_ITS ---
FINAL REPORT CLINICAL HISTORY: PAIN IN LEFT HIP OTHER CHRONIC PAIN COMPARISON: None FINDINGS: An AP pelvis, and AP and frog leg views of the left hip were obtained. There is no acute fracture or dislocation. There is bilateral degenerative change of the hips, greater on the left than on the right. Soft tissues are unremarkable. IMPRESSION: Bilateral degenerative change of the hips, greater on the left than on the right. Reviewed, Interpreted and Dictated by Gardenia Haines MD Transcribed by Carie Solorio Authenticated and [facility]
--- NOTE | 2025-01-31 16:22 | XR_ITS ---
FINAL REPORT CLINICAL HISTORY: PAIN IN LEFT HIP OTHER CHRONIC PAIN COMPARISON: None FINDINGS: AP, lateral, and oblique views of the lumbar spine were obtained. There is no acute fracture or acute malalignment. There is grade 1 spondylolisthesis of L4 on L5. Vertebral body height is preserved. Mild degenerative disc disease is present, most pronounced at the L3-4 level. No acute paraspinal abnormality is identified. IMPRESSION: Degenerative change as described, with no acute osseous abnormalities of the lumbar spine. Reviewed, Interpreted and Dictated by Gardenia Haines MD Transcribed by Carie Solorio Authenticated and . [facility]
== END 2025-01-31 23:59 | disposition home or self-care (01) ==
LOC: RAD 16:14
PROVIDERS: PCP Internal Medicine Adolescent Medicine; Visit Provider Internal Medicine Adolescent Medicine
DX: M53.3 Sacrococcygeal disorders, not elsewhere classified (principal); M16.0 Bilateral primary osteoarthritis of hip
CPT/HCPCS: 72110; 72202; 73502

== ENCOUNTER 2025-03-25 16:09 | Outpatient (CLI) | payer MEDICARE, SELFPAY ==
--- OUTSIDE RECORDS SUMMARY | 2025-01-31 11:30 | XMS_ITS ---
Author Organization [facility] Address [address] [place] [address] [facility], [facility] [address] [facility] [address] [place] [address] Care Team Providers Care Water Systems Designer Name Role Phone Raymond Puckett Primary Care Provider Allergies Allergen (clinical drug ingredient) Drug/Non Drug Allergy documented on EMR Reaction Allergy Type Onset Date Status LORTAB 10 (uncoded) rash Allergy Active hydromorphone Dilaudid rash Drug Allergy Act tawny acetaminophen / oxycodone Percocet rash Drug Allergy Active Results Component Value Reference Range Notes X ray : Spines, Lumbar Reviewed date:02/02/2025 01:35:52 PM Interpretation: Performing Lab: Notes/Report: X ray : Hip, Left Reviewed date:02/02/2025 01:35:37 PM Interpretation: Performing Lab: Notes/Report: X ray : SI Joints Reviewed date:02/02/2025 01:36:07 PM Interpretation: Performing Lab: Notes/Report: REASON FOR VISIT SI joint pain-lt hip, lt groin x 4-5 days, had a fall last night Medications Medication SIG (Take, Route, Frequency, Duration) Notes Start Date End Date Status Cialis 10 MG 1 tab(s) orally once a day Active TESTOSTERONE (EQV-ANDROGEL PACKETS) 50 MG/5 G (1%) 1 PKT(S) TRANSDERMALLY ONCE A DAY (IN THE MORNING) *Please review for potential replacement for e-prescription and drug interaction check* Active hydroCHLOROthiazide 12.5 MG 1 tab(s) orally once a day Active Aspirin 81 MG 1 tab(s) orally once a day Active traMADol HCl 50 MG 1-2 tab(s) orally every 6 hours; Duration: 30 days As needed with two tylenol 01/31/2025 Active Memantine HCl ER 28 MG 1 capsule Orally Once a day; Duration: 30 day(s) 12/17/2024 Active NEBIVOLOL 5 MG 1 TAB(S) ORALLY ONCE A DAY; Duration: 90 DAYS *Please review for potential replacement for e-prescription and drug interaction check* Active Losartan Potassium 100 MG 1 tab(s) orall y once a day; Duration: 90 days Active Synthroid 100 MCG 1 tab(s) orally once a day; Duration: 90 days Active Crestor 40 MG 1 tab(s) orally once a day; Duration: 90 days Active NIFEDIPINE (EQV-ADALAT CC) 30 MG 1 TAB(S) ORALLY ONCE A DAY; Duration: 90 DAYS *Please review for potential replacement for e-prescription and drug interaction check* 05/05/2024 Active Cetirizine HCl 10 MG 1 tab(s) orally once a day 08/15/2016 Active Rosuvastatin Calcium 40 MG 1 tab(s) orally once a day; Duration: 90 days Active Multivitamin MULTIPLE VITAMINS 1 CAP(S) ORALLY ONCE A DAY; Duration: 30 DAY(S) *Please review and pick correct strength-formula tion from [employer] options. If intended option is not shown, discontinue and re-order from Quick Search* Active Problems Problem Type SNOMED Code ICD Code Onset Dates Problem Status W/U Status Risk Notes Problem Sacrococcygeal disorders, not elsewhere classified (M53.3) Active confirmed Problem Chronic pain (54093458) Other chronic pain (G89.29) Active confirmed Vital Signs Temperature 97.6 degrees Fahrenheit 02/01/20 25 Heart Rate 60 /min 01/31/2025 Blood pressure systolic 104 mm Hg 02/01/20 25 Blood pressure diastolic 60 mm Hg 025 Height 67.25 in 01/31/2025 Weight 182.4 lbs 01/31/2025 BMI 28.35 kg/m2 01/31/2025 Encounters Encounter Location Date Provider Diagnosis [facility] [address] [place] [address] 01/31/2025 Raymond Puckett Left hip pain M25.55 2 ; Sacrococcygeal disorders, not elsewhere classified M53.3 and Other chronic pain G89.29 Assessments Encounter Date Diagnosis (ICD Code) Assessment Notes Treatment Notes Treatment Clinical Notes Section Notes 01/31/2025 Left hip pain (ICD-10 - M25.552) Patient has history of fall onto this side in November Pain worsening over past 4-5 days Has not had recent imaging Has had three SI injections in past with only the first being effective Start two Tramadol with two Tylenol every six hours for pain management Referral to Orthopedics at 01/31/2025 Sacrococcygeal disorders, not elsewhere classified (ICD-10 - M53.3) 01/31/2025 Other chronic pain (ICD-10 - G89.29) 01/31/2025 Other Please note I will refer x-rays and reviewed personally. I personally called clinic and made appointment myself for 2 days from now given his significant pain Plan Of Treatment Medication Medication Name Sig Start Date Stop Date Notes traMADol HCl 50 MG 1-2 tab(s) orally ev rafael 6 hours; Duration: 30 days 01/31/2025 Treatment Notes Assessment Notes Left hip pain Patient has history of fall onto this side in November Pain worsening over past 4-5 days Has not had recent imaging Has had three SI injections in past with only the first being effective Start two Tramadol with two Tylenol every six hours for pain management Referral to Orthopedics at Other Please note I will refer x-rays and reviewed personally. I personally called clinic and made appointment myself for 2 days from now given his significant pain Next Appt Details Follow Up: prn, Reason: Progress Notes * Devon HUDDLESTONDOB:1945 (79 yo M)Acc No.[id number]:01/31/2025 Progress Notes Patient: Devon FERRER Provider: Kathe Puckett MD :1945 A ge:79 Y S ex:Male Date:01/31/2025 Address:[address] [place] [address], [facility], [id number] Subjective: * Chief Complaints: * 1 . SI joint pain-lt hip, lt groin x 4-5 days. 2. Had a fall last night. * HPI: g en: Mr. Huddleston is an 79 year old male presenting to the clinic for left hip and groin pain that has been present on and off for some time but over the past 4-5 days it has been worse. The pain does not radiate. He fell in November onto this side which he feels may have started this pain. Jeanine reyes has been taking Tramadol and Tylenol with some relief. The pain is worse with walking. Jeanine reyes had an episode yesterday where he was experiencing some weakness in the leg and was unable to lift it leading to tripping on a stair. Jeanine reyes has had 3 injections in the past with only the first helping decrease pain for about a week. He has never followed with orthopedics. He denies any swelling in the leg, and bowel or bladder dysfunction. * Medical History: H ypertension, Hypercholestrolemia, Hypothyroidism, Arthritis, Right torn retina, Colonoscopy 02/19 with isolated polyp and extensive sigmoid diverticuliits. Dr Pearl, repeat 5 years, Mini stroke, TEO - on CPAP, Mild Cognitive Impairment and FH of Alzheimers Disease. * Social History: S moking A re you a:: former smoker , How long has it been since you last smoked?: > 10 years. R ecreational drug use: no. Exercise: no. Home smoke detector use: yes. Caffeine: yes, 1/2 cup a day. Living Will: Yes. Alcohol: socially. Sexually active: no. Travel outside [place]: yes, [place] 2011. 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 * Medications: T aking Cialis 10 MG Tablet 1 tab(s) orally once a day , Taking TESTOSTERONE (EQV-ANDROGEL PACKETS) 50 MG/5 G (1%) GEL 1 PKT(S) TRANSDERMALLY ONCE A DAY (IN THE MORNING) , Notes to Pharmacist: *Please review for potential replacement for e-prescription and drug interaction check*, Taking Aspirin 81 MG Tablet Delayed Release 1 tab(s) orally once a day , Taking hydroCHLOROthiazide 12.5 MG Tablet 1 tab(s) orally once a day , Taking Cetirizine HCl 10 MG Tablet 1 tab(s) orally once a day , Taking Multivitamin MULTIPLE VITAMINS CAPSULE 1 CAP(S) ORALLY ONCE A DAY , Notes to Pharmacist: *Please review and pick correct strength-formulation from [employer] options. If intended option is not shown, discontinue and re-order from Quick Search*, Taking Rosuvastatin Calcium 40 MG Tablet 1 tab(s) orally once a day , Taking NIFEDIPINE (EQV-ADALAT CC) 30 MG TABLET, EXTENDED RELEASE 1 TAB(S) ORALLY ONCE A DAY , Notes to Pharmacist: *Please review for potential replacement for e-prescription and drug interaction check*, Taking NEBIVOLOL 5 MG TABLET 1 TAB(S) ORALLY ONCE A DAY , Notes to Pharmacist: *Please review for potential replacement for e-prescription and drug interaction check*, Taking Synthroid 100 MCG Tablet 1 tab(s) orally once a day , Taking Losartan Potassium 100 MG Tablet 1 tab(s) orally once a day , Taking Crestor 40 MG Tablet 1 tab(s) orally once a day , Taking Memantine HCl ER 28 MG Capsule Extended Release 24 Hour 1 capsule Orally Once a day , Taking traMADol HCl 50 MG Tablet 1 tab(s) orally every 6 hours , Discontinued KONSYL 3.4 G/6.5 G POWDER FOR RECONSTITUTION DIRECTED ORALLY ONCE A DAY , Notes to Pharmacist: *Please review for potential replacement for e-prescription and drug interaction check*, Discontinued Azelastine HCl 0.15 % Solution 2 spray(s) intranasally 2 times a day , Notes to Pharmacist: prn, Discontinued Amoxicillin- Pot Clavulanate 875-125 MG Tablet as directed orally every 12 hours , Discontinued Colchicine 0.6 MG Tablet 1 tab(s) orally twice daily , Discontinued Losartan Potassium 100 MG Tablet 1 tab(s) orally once a day , Discontinued Donepezil HCl 10 MG Tablet 1 tablet at bedtime Orally Once a day , Medication List reviewed and reconciled with the patient * Allergies: P ercocet: rash, LORTAB 10: rash, Dilaudid: rash. Objective: * Vitals: N urse: jl, Pain: 9-hip, Temp: 97.6, RR: 18, HR: 60, BP: 104/60, Ht: 67.25, Wt: 182.4, BMI:28.35. * Examination: G eneral Examination: General P leasant and Cooperative, NAD on RA. Heart: R egular Rate and Rhythm, no murmur, rubs or gallops. Lungs: L CTAB, No wheezes, crackles or rhonchi, Good air movement,. Abdomen: S oft, NTND. Skin: w ithout acute rashes. Extremities: n o edema, limp noted on left side, unable to cross left foot to knee due to pain. Psych N ormal Mood/Affect. Assessment: * Assessment: 1. L eft hip pain - M25.552 (Primary) 2 . S acrococcygeal disorders, not elsewhere classified - M53.3 3 . O ther chronic pain - G89.29 Plan: * Treatment: * ?Imaging: X ray : Hip, Left* This DI was reviewed by Timi Puckett on 02/02/2025 at 13:35 PM EDT * ?Imaging: X ray : SI Joints* Fausto Vu R 02/02/2025 0 9:40:19 AM EDT >This DI was reviewed by Raymond Puckett on 02/02/2025 at 13:36 PM EDT * Notes: Patient has history of fall onto this side in November Pain worsening over past 4-5 days Has not had recent imaging Has had three SI injections in past with only the first being effective Start two Tramadol with two Tylenol every six hours for pain management Referral to Orthopedics at ??2.?Sacrococcygeal disorders, not elsewhere classified?Imaging: X ray : Spines, Lumbar* Fausto Vu R 02/02/2025 0 9:52:38 AM EDT >This DI was reviewed by Raymond Puckett on 02/02/2025 at 13:35 PM EDT * ?Imaging: X ray : Hip, Left* This DI was reviewed by Timi Puckett on 02/02/2025 at 13:35 PM EDT * ?Imaging: X ray : SI Joints* Fausto Vu R 02/02/2025 0 9:40:19 AM EDT >This DI was reviewed by Raymond Puckett on 02/02/2025 at 13:36 PM EDT * 3.?Other chronic pain?Imaging: X ray : Spines, Lumbar* Fausto Vu R 02/02/2025 0 9:52:38 AM EDT >This DI was reviewed by Raymond Puckett on 02/02/2025 at 13:35 PM EDT * ?Imaging: X ray : Hip, Left* This DI was reviewed by Timi Puckett on 02/02/2025 at 13:35 PM EDT * ?Imaging: X ray : SI Joints* Fausto Vu 02/02/2025 0 9:40:19 AM EDT >This DI was reviewed by Raymond Puckett on 02/02/2025 at 13:36 PM EDT * 4.?Others? Notes: Please note I will refer x-rays and reviewed personally. I personally called [facility] and made appointment myself for 2 days from now given his significantpain?? * Follow Up: p rn * * Sign off status: Completed true * Provider: Kathe Puckett MD Date: 01/31/2025 Generated for Cornleioi leland/Yudy/eTransmitting on: 0 03/25/2025 04:14 PM EDT History and Physical Notes * HPI (History of Present Illness) Category Sub-Category Detail Notes Category Not es gen Mr. Huddleston is an 79 year old male presenting to the clinic for left hip and groin pain that has been present on and off for some time but over the past 4-5 days it has been worse. The pain does not radiate. He fell in November onto this side which he feels may have started this pain. He has been taking Tramadol and Tylenol with some relief. The pain is worse with walking. He had an episode yesterday where he was experiencing some weakness in the leg and was unable to lift it leading to tripping on a stair. He has had 3 injections in the past with only the first helping decrease pain for about a week. He has never followed with orthopedics. He denies any swelling in the leg, and bowel or bladder dysfunction. Examination Category Sub-Category Detail Notes Category Not es General Examination Heart: Regular Rate and Rhythm, no murmur, rubs or gallops Lungs: LCTAB, No wheezes, c rackles or rhonchi, Good air movement, Abdomen: Soft, NTND Extremities: no edema, limp noted on left side, unable to cross left foot to knee due to pain Skin: without acute rashes General Pleasant and Coopera tive, NAD on RA Psych Normal Mood/Affect
--- OUTSIDE RECORDS SUMMARY | 2025-02-03 08:00 | XMS_ITS | Encounter Summary ---
Author Organization Healthcare Address [address] [place] [address] Care Team Providers Care Shipping And Receiving Associate Name Role Phone Raymond Puckett MD Primary Care Provider [phone] Encounter Details Date Type Department Care Team (Latest Contact Info) Description 02/03/2025 8:00 AM EDT - 02/03/2025 9:16 AM EDT Hospital Encounter Medical Office Building Radiology [facility] [place] [address] Hip pain, left Discharge Disposition: Home or Self Care Social History Tobacco Use Types Packs/Day Years Used Date Smoking Tobacco: Never Smokeless Tobacco: Never Alcohol Use Standard Drinks/Week Comments Yes 0 (1 standard drink = 0.6 oz pur e alcohol) couple drinks every night Sex and Gender Information Value Date Recorded Sex Assigned at Not on file Legal Sex Male 8:34 PM EDT Gender Identity Not on file Sexual Orientation Not on file documented as of this encounter Medications at Time of Discharge acetaminophen (Tylenol Extra Strength) 500 MG tablet Take 2 tablets by mouth every 8 hours. 100 tablet 03/15/2025 aspirin 81 MG EC tablet Take 1 tablet by mouth 2 times a day for 28 days. For 4 weeks post-op for blood clot prevention 56 tablet 03/15/2025 ASPIRIN 81 PO Take 81 mg by mouth daily. celecoxib (CeleBREX) 100 MG capsule Take 1 capsule by mouth daily. docusate sodium (Colace) 250 MG capsule Take 1 capsule by mouth 2 times a day. 60 capsule 03/15/2025 gabapentin (Neurontin) 100 MG capsule Take 1 capsule by mouth 3 times a day. If this medication makes you drowsy you may take it only at bedtime 30 capsule 03/14/2025 levothyroxine (Synthroid, Levoxyl) 100 MCG tablet Take 1 tablet by mouth daily. losartan (Cozaar) 100 MG tablet Take 1 tablet by mouth daily. naloxone (Narcan) 4 mg/0.1 mL nasal spray 1. Give 1 spray in nostril for no/slow breathing or cannot wake after opioid use 2. Call 911 3. Repeat in other nostril if symptoms continue 1 each 03/15/2025 Namzaric 28-10 MG capsule sustained-releas e 24 hr Take 1 tablet by mouth daily. omeprazole (PriLOSEC) [address] capsule Take 1 capsule by mouth daily for 28 days. Do not crush or chew. 28 capsule 03/15/2025 5 rosuvastatin (Crestor) 40 MG tablet Take 1 tablet by mouth daily. tadalafil (Cialis) 10 MG tablet Take 1 tablet by mouth daily. testosterone (Androgel) 50 MG/5GM (1%) gel Place 50 mg on the skin daily. traMADol (Ultram) 50 MG tablet Take 1 tablet by mouth every 4 hours as needed for severe pain. 60 tablet 03/14/2025 cefadroxil (Duricef) 500 MG capsuleIndicatio ns:Arthritis of left hip Take 1 capsule by mouth 2 times a day for 7 days. To prevent post-op infection 14 capsule 03/15/2025 5 oxyCODONE (Roxicodone) 5 MG immediate release tablet Take 1 tablet by mouth every 6 hours as needed for severe pain for up to 8 days. 30 tablet 03/15/2025 5 tranexamic acid (Lysteda) 650 MG tablet tablet Take 1 tablet by mouth 3 times a day for 8 doses. 8 tablet 03/15/2025 5 acetaminophen (Tylenol Extra Strength) 500 MG tablet Take 1 tablet by mouth as needed. 5 HYDROcodone-acet aminophen (Aurora) 5-325 MG tablet Take 1 tablet by mouth every 6 hours as needed for severe pain. 30 tablet 03/14/2025 5 Memantine HCl ER 28 MG capsule sustained-releas e 24 hr 1 capsule 1 (one) time each day at the same time. 12/17/2024 5 Rosuvastatin Calcium 40 MG capsule sprinkle Take 1 tablet by mouth. 5 Testosterone 50 MG pellet 1 PKT(S) TRANSDERMALLY ONCE A DAY (IN THE MORNING) 5 traMADol (Ultram) 50 MG tablet Take 1-2 tablets by mouth every 6 hours as needed for severe pain. 11/18/2024 5 documented as of this encounter Plan of Treatment Upcoming Encounters Date Type Department Care Team (Late st Contact Info) Description 03/31/2025 10:00 AM EDT Office Visit Medical Office Building [facility] [address], [address] [place] [address] Irnee Good PA [address] [place] [address] 04/28/2025 10:50 AM EDT Office Visit Medical Office Building [facility] [address], [address] [place] [address] Raymond Mclean MD [address] [place] [address] documented as of this encounter Goals Goal Patient Goal Type Associated Problems Recent Progress Patient-Stated? Author Autogenerat ed Goal Care Plan Autogenerated Problem No Melanie Plummer documented as of this encounter Procedures Procedure Name Priority Date/Time Associated Diagnosis Comments XR HIP LEFT 2 OR 3 VIEWS Routine 02/03/2025 8:08 AM EDT Hip pain, left documented in this encounter Results * New Patient: XR Hip (AP Pelvis Standing with Sae Marker / Frog Leg Lateral Standing) (02/03/2025 8:08 AM EDT) Anatomical Region Laterality Modality Lower Extremities, Hip Left Digital R adiography Impressions 02/03/2025 8:37 AM EDT Severe left hip osteoarthrosis. No acute osseous finding. CRITICAL RESULT: No. COMMUNICATION: Per this written report. Drafted by Anamika Madden MD on 02/03/2025 8:32 AM Final report signed by Anamika Madden MD on 02/03/2025 8:37 AM Narrative 02/03/2025 8:37 AM EDT CLINICAL INDICATION: Hip Pain TECHNIQUE: XR HIP LEFT 2 OR 3 VIEWS COMPARISON: Outside radiographs from 01/31/2025 FINDINGS: Moderate to severe left hip joint space narrowing and osteophytosis. Mild right hip joint narrowing and osteophytosis. The pubic symphysis and SI joints are intact. Possible ossification of the left hip joint capsule superiorly. No acute fracture or dislocation. Pelvic enthesopathy. Procedure Note Anamika Madden MD - 02/03/2025 CLINICAL INDICATION: Hip Pain TECHNIQUE: XR HIP LEFT 2 OR 3 VIEWS COMPARISON: Outside radiographs from 01/31/2025 FINDINGS: Moderate to severe left hip joint space narrowing and osteophytosis. Mildright hip joint narrowing and osteophytosis. The pubic symphysis and SIjoints are intact. Possible ossification of the left hip joint capsulesuperiorly. No acute fracture or dislocation. Pelvic enthesopathy. IMPRESSION: Severe left hip osteoarthrosis. No acute osseous finding. CRITICAL RESULT: No. COMMUNICATION: Per this written report. Drafted by Anamika Madden MD on 02/03/2025 8:32 AM Final report signed by Anamika Madden MD on 02/03/2025 8:37 AM Raymond Mclean MD IMG XR PROCEDURES Final Resu lt documented in this encounter Visit Diagnoses Diagnosis Hip pain, left Pain in joint, pelvic region and thigh documented in this encounter Additional Health Concerns Active Problems Noted Date Diagnosed Date Autogenerated Problem 02/03/2025 Assessment Noted Time A fall risk assessment has been complete d for the patient 02/03/2025 8:14 AM EDT A Body Mass Index follow-up plan has been documented for the patient 02/03/2025 8:42 AM EDT documented as of this encounter Care Teams Shipping And Receiving Associate Relationship Specialty Start Date End Date Raymond Puckett MD [address] [place] [address] PCP - General Internal Medicine 02/03/25 documented as of this encounter
--- OUTSIDE RECORDS SUMMARY | 2025-02-03 08:10 | XMS_ITS | Encounter Summary ---
Author Organization [facility] Address [address] [place] [address] Care Team Providers Care Aquatic Centre Manager Name Role Phone Raymond Puckett MD Primary Care Provider [phone] Reason for Visit * Reason Comments Consult * Consultation (Routine) - Closed Specialty Diagnoses / Procedures Referred By Gerardo mckeon Referred To Contact Orthopaedic Surgery Diagnoses Sacro ilial pain Raymond Puckett MD [address] [place] [address] Phone: tel: fax: Raymond Mclean MD [address] [facility] [address] [place] [address] Phone: tel: fax: Referral ID Status Reason Start Date Expiration Date V isits Requested Visits Authorized [id number] Closed Specialty Services Required 01/31/2025 08/02/2026 1 1 Encounter Details Date Type Department Care Team (Late st Contact Info) Description 02/03/2025 8:10 AM EDT Office Visit Medical Office Building Surgery Spine & Joint [address] , [address] [place] [address] Raymond Mlcean MD [address] [facility] [address] [place] [address] Hip pain, left (Primary Dx); Arthritis of left hip; Abnormal finding of blood chemistry, unspecified Social History Tobacco Use Types Packs/Day Years [...] on file documented as of this encounter Last Filed Vital Signs Vital Sign Reading Time Taken Comments Blood Pressure 117/72 02/03/2025 8:17 AM EDT Pulse 51 02/03/2025 8:17 AM EDT Temperature - - Respiratory Rate - - Oxygen Saturation 95% 02/03/2025 8:17 AM EDT Inhaled Oxygen Concentration - - Weight 81.3 kg (179 lb 3.7 oz) 02/03/2025 8:17 A M EDT Height 172.7 cm (5' 8 ) 02/03/2025 8:17 AM EDT Body Mass Index 27.25 02/03/2025 8:17 AM EDT documented in this encounter Miscellaneous Notes * Progress Notes - Johnny Wolfe MD - 02/03/2025 8:10 AM EDT Subjective: Devon Joyner is a 79 y.o. y/o male who comes in today for left hip pain for many years. He localizes his hip pain to his left groin. It is worse with activity and ambulation. He had improves with rest and sitting. He has tried activity modification and anti-inflammatories without any relief. He is here today for further evaluation. He denies any numbness or tingling distally. I have reviewed and updated the patient's past medical history, past surgical history, social history, and family history. This is located both in the patient's note and their intake form that has been scanned into the medical record for today's visit. 14 point review of systems was reviewed per signed intake sheet and is otherwise negative except asnoted above. Objective: Body mass index is 27.25 kg/m??. 02/03/2025 8:17 AM Vitals Systolic 117 Diastolic 72 Heart Rate 51 Height (cm) 172.7 cm Weight (kg) 81.3 kg BMI 27.25 kg/m2 BSA (m2) 1.97 m2 Visit Report Report On examination of the left hip he has pain with logroll of the left hip. He has internal rotation 10?? and external rotation at 30?? with significant pain at terminal points. He has pain with axial loading of the hip. Distally he is neurovascularly intact. My independent interpretation of radiographic testing shows: bone on bone articulation with loss ofjoint space, subchondral sclerosis, cystic changes Notes reviewed: none Results of tests reviewed: previous radiographs Assessment and plan: Hip pain, left Arthritis of left hip Orders Placed This Encounter XR Lumbar Spine 2 or 3 Views New Patient: XR Hip (AP Pelvis Standing with Sae Marker / Frog Leg Lateral Standing) No follow-ups on file. 79M with left hip pain for years. Evidence of end stage arthritis on radiographs. He has tried multiple conservative measures without relief. Would like to proceed with left DAVID. This problem is a chronic problem with some progression . Major procedure risk factors were discussed, (all pertinent risks, benefits, and alternatives to this procedure were discussed. The risks include but are not limited to loss of life, loss of limb, need for further surgery, nonunion, malunion, infection, nerve and/or vessel injury, limb length discrepancy, blood clots, dislocation. The patient understands these risks as we discussed.) and decisionwas made for procedure. Cosigned by Raymond Mclean MD at 02/03/2025 8:42 AM EDT Associated attestation - Raymond Mclean MD - 02/03/2025 8:42 AM EDT I saw and evaluated the patient with the resident/fellow. I discussed the case with the resident/fellow and agree with the findings and plan as documented. Subjective: Devon Joyner is a 79 y.o. y/o male who comes in today for left hip pain. I have reviewed and updated the patient's past medical history, past surgical history, social history, and family history. This is located both in the patient's note and their intake form that has been scanned into the medical record for today's visit. 14 point review of systems was reviewed per signed intake sheet and is otherwise negative except asnoted above. Objective: Body mass index is 27.25 kg/m??. 02/03/2025 8:17 AM Vitals Systolic 117 Diastolic 72 Heart Rate 51 Height (cm) 172.7 cm Weight (kg) 81.3 kg BMI 27.25 kg/m2 BSA (m2) 1.97 m2 Visit Report Report My independent interpretation of radiographic testing shows: bone on bone articulation with loss ofjoint space, subchondral sclerosis, cystic changes New Patient: XR Hip (AP Pelvis Standing with Sae Marker / Frog Leg Lateral Standing) Result Date: 02/03/2025 Severe left hip osteoarthrosis. No acute osseous finding. CRITICAL RESULT: No. COMMUNICATION: Per this written report. Drafted by Anamika Madden MD on 02/03/2025 8:32 AM Final report signed by Anamika Madden MD on 02/03/2025 8:37 AM Notes reviewed: outside physician Results of tests reviewed: previous radiographs Assessment and plan: Hip pain, left Arthritis of left hip Abnormal finding of blood chemistry, unspecified Orders Placed This Encounter XR Lumbar Spine 2 or 3 Views New Patient: XR Hip (AP Pelvis Standing with Sae Marker / Frog Leg Lateral Standing) XR Lumbar Spine 2 or 3 Views CBC W/O Differential Basic metabolic panel Albumin, Plasma Hemoglobin A1c Case Request Operating Room: ARTHROPLASTY, HIP, TOTAL, ANTERIOR APPROACH No follow-ups on file. 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 Based on discussion with the patient as well as review of the patient???s previous medical records and notes, the patient has now failed previous nonoperative treatment with activity modification, anti-inflammatories, corticosteroid injections, and assistive devices. Upon personal review of the preoperative imaging, the radiographs demonstrate severe joint space narrowing with subchondral sclerosis and reactive osteophytes. Risks complications and benefits of the procedure have now been discussed preoperatively to include but not limited to infection, bleeding, anesthesia risk, sciatic nerve palsy, instab ility, leg length discrepancy, aseptic loosening, osteolysis, DVT, continued pain, iatrogenic fracture, [place], stroke, and . The patient is felt to be an appropriate candidate for total hip arthroplasty. The patient will require preoperative medical clearance joint arthroplasty education. Risk stratification has demonstrated patient will be treated with chemical and mechanical DVT prophylaxis postoperatively. We will have the patient meet with the materials scheduler today to try and find a date and time for the surgery. We will also get new xrays today to evaluate for the spinopelvic mobility to aid in determining proper acetabular cup position. We have also ordered preoperative laboratory workup to include CBC, BMP, Vitamin D Level, and Albumin to help with medical optimization prior to surgery. Rx management per plan. * Progress Notes - Nancy Benjamin, RN - 02/03/2025 8:10 AM EDT Patient was provided with Total Joint Education Packet. Patient was educated using information provided in packet. Patient instructed to schedule PT appointment 4-7 days after surgery date and to schedule prior to having procedure. All questions answered. Contact information for Joint Replacement Nu rse given for patient to call should any questions arise before or after surgery. Pt then met with materials scheduler to arrange surgery and Joint Replacement Class date. Reviewed patients allergies, medications, medical and surgical history, and pharmacy verified. Instructed patient to stop NSAIDS, ASA, and OTC vitamins & supplements 1 week prior to procedure. Instructed to ensure any hormone replacement, if taken, is stopped 1 month prior to surgery. Also any dermatological procedures or dental work need to be performed 1 month prior to procedure. Patient instructed to review educational material and write down any questions or concerns in the notes section and bring the packet to the hospital and all appointments. Patient stated understanding. Prefers SDD. IPSS: 11 documented in this encounter Plan of Treatment Upcoming Encounters Date Type Department Care Team (Late st Contact Info) Description 03/31/2025 10:00 AM EDT Office Visit Medical Office Building Surgery Spine & Joint [address] [facility] [address], [address] [place] [address] Irene Good PA [address] [place] [address] 04/28/2025 10:50 AM EDT Office Visit Medical Office Building Surgery Spine & Joint [address], [address] [place] [address] Raymond Mclean MD [address] [place] [address] Scheduled Orders Name Type Priority Associated Diagnoses Orde r Schedule XR Lumbar Spine 2 or 3 Views Imaging Routine Hip pain, left 1 Occurrences starting 02/02/2025 until 08/06/2026 documented as of this encounter Goals Goal Patient Goal Type Associated Problems Recent Progress Patient-Stated? Author Autogenerat ed Goal Care Plan Autogenerated Problem No Melaine Plummer documented as of this encounter Results * Hemoglobin A1c (02/25/2025 11:41 AM EDT) Hemoglobin A1c 5.6 <5.7 % 02/25/2025 5:57 PM EDT [facility] Blood Venous blood specimen / Unknown Venipuncture / Unknown 02/25/2025 11:41 AM EDT 02/25/2025 11:41 AM EDT Narrative [facility] - 02/25/2025 5:57 PM EDT HA1C Interpretive Data: Diagnosis of Diabetes: Diabetic > or = 6.5% Pre-diabetic 5.7 to 6.4% Non-diabetic < or = 5.6% Glycemic Targets for Type I and Type II Diabetics: Non- Adults <7.0% Adults <6.0% Children and Adolescents <7.5% Source: [place] [employer]. Standards of medical care in diabetes,2017. Diabetes Care.2017:40 (suppl 1):S1-S135. Raymond Mclean MD LAB BLOOD ORDERABLES Final R esult Performing Organization Address City/[facility] Co de Phone Number [facility] [address] [place] [address] * Albumin, Plasma (02/25/2025 11:41 AM EDT) Albumin, Plasma 4.4 3.5 - 5.2 g/dL 02/25/2025 2:37 PM EDT [facility] Blood Venous blood specimen / Unknown Venipuncture / Unknown 02/25/2025 11:41 AM EDT 02/25/2025 11:41 AM EDT Raymond Mclean MD LAB BLOOD ORDERABLES Final R esult Performing Organization Address City/[facility]/ZIP Co de Phone Number [facility] [address] [place] [address] * (ABNORMAL) Basic metabolic panel (02/25/2025 11:41 AM EDT) [facility] Glucose, Plasma 80 74 - 99 mg/dL 02/25/2025 2:37 PM EDT [facility] BUN, Plasma 44(H) 8 - 23 mg/dL 02/25/2025 2:37 PM EDT [facility] Creatinine, Plasma 1.95(H) 0.70 - 1.20 mg/dL 02/25/2025 2:37 PM EDT [facility] BUN/Creatinine Ratio 23 02/25/2025 2:37 PM EDT [facility] Sodium, Plasma 136 136 - 145 mmol/L 02/25/2025 2:37 PM EDT [facility] Potassium, Plasma 4.2 3.6 - 4.9 mmol/L 02/25/2025 2:37 PM EDT [facility] Chloride, Plasma 103 97 - 107 mmol/L 02/25/2025 2:37 PM EDT [facility] CO2, Plasma 23 22 - 29 mmol/L 02/25/2025 2:37 PM EDT [facility] Anion Gap 10 6 - 16 mmol/L 02/25/2025 2:37 PM EDT [facility] Total Calcium, Plasma 9.2 8.9 - 10.2 mg/dL 02/25/2025 2:37 PM EDT [facility] eGFRcr 34.1 mL/min/1.7 3m*2 02/25/2025 2:37 PM EDT [facility] Comment:Reported eGFRcr in m L/min/1.73m2 is based the CKD-EPI 2020 equation that does not use a race coefficient. Blood Venous blood specimen / Unknown Venipuncture / Unknown 02/25/2025 11:41 AM EDT 02/25/2025 11:41 AM EDT us Raymond Mclean MD LAB BLOOD ORDERABLES Final R esult [facility] [address] [place] [address] * CBC W/O Differential (02/25/2025 11:41 AM EDT) WBC Count 5.19 3.70 - 10.30 10*3/uL LAB HEMATOLOGY METHOD 02/25/2025 2:18 PM EDT [facility] RBC Count 5.31 4.60 - 6.10 10*6/uL LAB HEMATOLOGY METHOD 02/25/2025 2:18 PM EDT [facility] HGB 16.6 13.7 - 17.5 g/dL LAB HEMATOLOGY METHOD 02/25/2025 2:18 PM EDT [facility] HCT 50.6 40.0 - 51.0 % LAB HEMATOLOGY METHOD 02/25/2025 2:18 PM EDT [facility] Platelet Count 175 155 - 369 10*3/uL LAB HEMATOLOGY METHOD 02/25/2025 2:18 PM EDT [facility] MCV 95 79 - 98 fL LAB HEMATOLOGY METHOD 02/25/2025 2:18 PM EDT [facility] MCH 31.3 26.0 - 32.0 pg LAB HEMATOLOGY METHOD 02/25/2025 2:18 PM EDT [facility] MCHC 32.8 30.7 - 35.5 g/dL LAB HEMATOLOGY METHOD 02/25/2025 2:18 PM EDT [facility] RDW 14.3 11.5 - 14.5 % LAB HEMATOLOGY METHOD 02/25/2025 2:18 PM EDT [facility] MPV 11.2 8.8 - 12.5 fL LAB HEMATOLOGY METHOD 02/25/2025 2:18 PM EDT [facility] nRBC 0.0 <=0.0 per 100 WBCs LAB HEMATOLOGY METHOD 02/25/2025 2:18 PM EDT [facility] Blood Venous blood specimen / Unknown Venipuncture / Unknown 02/25/2025 11:41 AM EDT 02/25/2025 11:41 AM EDT us Raymond Mclean MD LAB BLOOD ORDERABLES Final R esult [facility] [address] [place] [address] * XR Lumbar Spine 2 or 3 Views (02/03/2025 9:30 AM EDT) Anatomical Region Laterality Modality Spine, L-spine Digital Radiogra phy Impressions 02/03/2025 9:46 AM EDT No acute osseous finding. Moderate to severe degenerative changes as described above. CRITICAL RESULT: No. COMMUNICATION: Per this written report. Drafted by Anamika Madden MD on 02/03/2025 9:44 AM Final report signed by Anamika Madden MD on 02/03/2025 9:46 AM Narrative 02/03/2025 9:46 AM EDT CLINICAL INDICATION: pain TECHNIQUE: XR LUMBAR SPINE 2 OR 3 VIEWS COMPARISON: None. FINDINGS: There are 5 lumbar type vertebrae. Grade 1 anterolisthesis of L4 on L5. Mild retrolisthesis of L3 on L5. No change in alignment between sitting and standing. Severe dis space narrowing and osteophytosis throughout the lumbar spine. No evidence of an acute fracture. Moderate to severe facet joint arthropathy. Procedure Note Anamika Madden MD - 02/03/2025 CLINICAL INDICATION: pain TECHNIQUE: XR LUMBAR SPINE 2 OR 3 VIEWS COMPARISON: None. FINDINGS: There are 5 lumbar type vertebrae. Grade 1 anterolisthesis of L4 on L5.Mild retrolisthesis of L3 on L5. No change in alignment between sittingand standing. Severe dis space narrowing and osteophytosis throughout thelumbar spine. No evidence of an acute fracture. Moderate to severe facetjoint arthropathy. IMPRESSION: No acute osseous finding. Moderate to severe degenerative changes asdescribed above. CRITICAL RESULT: No. COMMUNICATION: Per this written report. Drafted by Anamika Madden MD on 02/03/2025 9:44 AM Final report signed by Anamika Madden MD on 02/03/2025 9:46 AM Raymond Mclean MD IMG XR PROCEDURES Final Resu lt * New Patient: XR Hip (AP Pelvis [...] this encounter Visit Diagnoses Diagnosis Hip pain, left- Primary Pain in joint, pelvic region and thigh Arthritis of left hip Abnormal finding of blood chemistry, unspecified Hip pain, left Pain in joint, pelvic region and thigh Hip pain, left Pain in joint, pelvic region and thigh Arthritis of left hip documented in this encounter Additional Health Concerns Active Problems Noted Date Diagnosed Date Autogenerated Problem 02/03/2025 Assessment Noted Time A fall risk assessment has been complete d for the patient 02/03/2025 8:14 AM EDT A Body Mass Index follow-up plan has been documented for the patient 02/03/2025 8:42 AM EDT documented as of this encounter Care Teams Aquatic Centre Manager Relationship Specialty Start Date End Date Raymond Puckett MD [address] [place] [address] PCP - General Internal Medicine 02/03/25 documented as of this encounter
--- OUTSIDE RECORDS SUMMARY | 2025-02-03 09:17 | XMS_ITS | Encounter Summary ---
Author Organization [facility] Address [address] [place] [address] Care Team Providers Care Water And Gas Helper Name Role Phone Raymond Puckett MD Primary Care Provider [phone] Encounter Details Date Type Department Care Team (Latest Contact Info) Description 02/03/2025 9:17 AM EDT - 02/03/2025 11:59 PM EDT Hospital Encounter Medical Office Building Radiology [facility] [place] [address] Hip pain, left; Arthritis of left hip Discharge Disposition: Home or Self Care Social [...] for blood clot prevention 56 tablet 03/15/2025 5 ASPIRIN 81 PO Take 81 mg by [...] by mouth as needed. 5 HYDROcodone-acet aminophen ([place]) 5-325 MG tablet Take 1 tablet by [...] Joint [address], [address] [place] [address] Irene Good PA [address] [place] [address] 04/28/2025 10:50 AM EDT Office Visit Medical Office Building Surgery Sp[facility] [address], [address] [place] [address] Raymond Mclean MD [address] [place] [address] documented as of this encounter Goals Goal Patient Goal Type Associated Problems Recent Progress Patient-Stated? Author Autogenerat ed Goal Care Plan Autogenerated Problem No ivMelanie walker documented as of this encounter Procedures Procedure Name Priority Date/Time Associated Diagnosis Comments XR LUMBAR SPINE 2 OR 3 VIEWS Routine 02/03/2025 9:30 AM EDT Hip pain, left Arthritis of left hip documented in this encounter Results * XR Lumbar Spine 2 or 3 [...] documented as of this encounter Care Teams Water And Gas Helper Relationship Specialty Start Date End Date Raymond Puckett MD [address] [place] [address] PCP - General Internal Medicine 02/03/25 documented as of this encounter
--- OUTSIDE RECORDS SUMMARY | 2025-02-25 10:15 | XMS_ITS | Encounter Summary ---
Author Organization [facility] Address [address] [place] [address] Care Team Providers Care Votator Machine Operator Name Role Phone Raymond Puckett MD Primary Care Provider [phone] Encounter Details Date Type Department Care Team (Latest Contact Info) Description 02/25/2025 10:15 AM EDT Pre-Admission Testing [facility] [address] [place] [address] Preop examination (Primary Dx) Anesthesia Record Procedure Summary Procedure Name Responsible Anesthesiologist Anesthesia Start Time Anesthesia Stop Time ARTHROPLASTY, HIP, TOTAL, ANTERIOR APPROACH (Left: Hip) Justus Taylor MD 03/14/25 0734 03/14/25 0928 Events Date Time Event Comment 03/14/2025 0711 0734 An Start The patient was reevaluated immediately before sedation and remains eligible for anesthesia plan. 0734 In Room 0734 An Start Data 0738 An Induction The patient was reevaluated immediately before moderate or deep sedation use and before anesthesia induction. 0741 An Intubation 0744 Anesthesia Ready 0804 Proc Start [address] Vinay alexis lower blood pressure during the procedure 0919 An Extubation 0920 Proc Fin 0923 an stop data 0924 Out of Room 0928 Handoff to Receiving I compl eted my handoff to the receiving clinician during which we: 1. Identified the patient 2. Identified the responsible provider 3. Reviewed the pertinent medical history 4. Discussed the surgical course 5. Reviewed intra-op anesthesia management and issues during anesthesia 6. Set expectations for post-procedure period 7. Allowed opportunity for questions and acknowledgement of understanding. 0928 An Stop Meds * Agents No agents on file. * Blood No blood administrations on file. Lines, Drains, and Airways Type Details Placement Removal Wound 03/14/25; 804; N; Y es; Surgical; Open Surg (dressed with prineo, 4x4s, tegaderms); Leg; Anterior, Left, Upper 03/14/25 08 by Danay Burnett RN Peripheral IV Placement Date: 03/01 12/24; Placement Time: 0615; Catheter Size: 20 G; Orientation: Anterior, Right; Location: Forearm; Site Prep: Chlorhexidine ; Insertion Attempts: 1; Patient Tolerance: Tolerated well; Removal Date: 03/15/25; Removal Time: 115; Removal Reason: Discharge 03/14/25 06 by Carolina Gregory RN 03/15/25 115 by Anamika Sosa RN ETT Placement Date: 03/01 12/24; Placement Time: 740 (created via procedure documentation); Mask Ventilation: 2; Technique: Direct laryngoscopy; Type: ETT - single; Single Lumen Tube Size: 7.5 mm; Cuffed: Yes; Laryngoscope: Julio; Blade Size: 3; Location: Oral; Grade View: Grade IIb; Insertion Attempts: 1; Placement Verification: Auscultation, Capnometry; Airway Comments: Atraumatic. No change to dentition. ; Placed by: COLLECTION [employer]; Removal Date: 03/14/25; Removal Time: 91803/14/[id number] by Masoud Lamar CRNA 03/14/25918 by Masoud Lamar CRNA documented in this encounter Social History Tobacco Use Types Packs/Day Years Used Date Smoking Tobacco: Former Cigarettes Smokeless Tobacco: Never Tobacco Cessation:Counseling Given: Not Answered Comments:Quit 1966. Alcohol Use Standard Drinks/Week Comments Yes 0 (1 standard drink = 0.6 oz pure alcohol) couple drinks every night- 2 per night Sex and Gender Information Value Date Recorded Sex Assigned at Not on file Legal Sex Male 8:34 PM EDT Gender Identity Not on file Sexual Orientation Not on file documented as of this encounter Last Filed Vital Signs Vital Sign Reading Time Taken Comments Blood Pressure 127/75 02/25/2025 10:22 AM EDT Pulse 100 02/25/2025 10:22 AM EDT Temperature 36.3 C (97.3 F) 02/25/2025 10:22 AM EDT Respiratory Rate 16 02/25/2025 10:22 AM EDT Oxygen Saturation 97% 02/25/2025 10:22 AM EDT Inhaled Oxygen Concentration - - Weight 79.6 kg (175 lb 7.8 oz) 02/25/2025 10:22 AM EDT Height 172.7 cm (5' 8 ) 02/25/2025 10:22 AM EDT Body Mass Index 26.68 02/25/2025 10:22 AM EDT documented in this encounter Miscellaneous Notes * PAT Evaluation Note - Wilma Cheng APRN - 02/25/2025 10:15 AM EDT Images from the original note were not included. HPI Devon Joyner is a 79 y.o. male who presents with Pre-op Diagnosis * Arthritis of left hip [M16.12] now scheduled for ARTHROPLASTY, HIP, TOTAL, ANTERIOR APPROACH (Left)with Raymond Mclean MD on 03/14/[address] [facility]. Past Medical History[1] Family History[2] Social History[3] SURGICAL HISTORY: Surgical History[4] Allergies[5] MEDICATIONS: Current Medications[6] ROS Anesthesia: Date of last anesthetic: Most recent G.A ~ 20 yrs ago. Most recent colonoscopy 2020. history of previous anesthesia and obstructive sleep apnea (cpap at [facility] Cardiovascular: dysrhythmias (PAT/PSVT- BB patricia. Emanuel reviewed the heart monitor and it showed PSVT and PAT but no afib.) and hyperlipidemia. Does not have angina, CAD, CHF, pacemaker or past NM. hypertension: Exercise tolerance is 2 flights of stairs. Cardio additional comments: Denies any active current cardiac complaints. ? AFIB. . Respiratory: Does not have home oxygen. no asthma: no COPD: Has not had an upper respiratory infection in last 30 days. Has not had pneumonia in the last 30 days or COVID in the last 30 days. HEENT: hearing loss (wears hearing aids.). Neurological: no seizures: Did not have a cerebrovascular accident. Neuro additional comments: Mild cognitive impairment. TIA is mentioned in medical records but pt & denies this and had retinal disease. Gastrointestinal: Does not have GERD.Does not have cirrhosis. Genitourinary: renal disease (Cr 1.95 (02/25/25).). Hematological/Lymphatic: History of no DVT. History of no pulmonary embolism. Not in a hypercoagulable state. no history of chemotherapy no history of radiation Does not have MRSA or tuberculosis. Hem/Lymph ROS additional comments: 81 mg ASA. Endocrine/Metabolic: does not have diabetes mellitus. thyroid disorder. ECHO 08/28/22: Stress test 10/11/22: Normal perfusion EF 66%. OSH CARDS 02/01/25: Lab Results Component Value Date WBC 5.19 02/25/2025 HGB 16.6 02/25/2025 HCT 50.6 02/25/2025 MCV 95 02/25/2025 PLT 175 02/25/2025 Lab Results Component Value Date GLUCOSE 80 02/25/2025 BUN 44 (H) 02/25/2025 CREATININE 1.95 (H) 02/25/2025 BCR 23 02/25/2025 NA 136 02/25/2025 K 4.2 02/25/2025 CL 103 02/25/2025 CO2 23 02/25/2025 ALBUMIN 4.4 02/25/2025 No results found for: HGBA1C No results found for: INR , PROTIME Visit Vitals BP 127/75 Pulse 100 Temp 36.3 ??C (97.3 ??F) (Temporal) Resp 16 Ht 1.727 m (5' 8 ) Wt 79.6 kg (175 lb 7.8 oz) SpO2 97% BMI 26.68 kg/m?? Smoking Status Former BSA 1.95 m?? Physical Exam Airway Mallampati: II Mouth opening: limited TM distance: >3 FB Neck ROM: full Cardiovascular Rhythm: regular Rate: normal Dental Comments: FRONT UPPER and LOWER CROWNS. Pulmonary Breath sounds clear to auscultation Neurological Oriented: normal to time, normal to person and normal to place Skin Musculoskeletal Extremities Anesthesia Plan ASA 3 Anesthesia technique(s) discussed with the patient/family: general Comment: Discussed with Dr. Campos. Wilma Cheng APRN [1] Past Medical History: Diagnosis Date Adverse effect of anesthesia Reports with colonoscopy ~2014 I woke up with foam in my mouth. HLD (hyperlipidemia) HTN (hypertension) Hypothyroid Mild cognitive impairment TEO on CPAP [2] Family History Problem Relation Name Age of Onset Anesthesia problems Neg Hx Malig Hyperthermia Neg Hx [3] Social History Tobacco Use Smoking status: Former Types: Cigarettes Smokeless tobacco: Never Tobacco comments: Quit 1966. Vaping Use Vaping status: Never Used Substance Use Topics Alcohol use: Yes Comment: couple drinks every night- 2 per night Drug use: Never [4] Past Surgical History: Procedure Laterality Date COLONOSCOPY HAND SURGERY Left INGUINAL HERNIA REPAIR Right [5] Allergies Allergen Reactions Oxycodone-Acetaminophen Itching and Rash acetaminophen / oxycodone Hydrocodone-Acetaminophen Rash Hydromorphone Rash [6] Current Outpatient Medications: acetaminophen, Take 1 tablet by mouth as needed. ASPIRIN 81 PO, Take 81 mg by mouth daily. celecoxib, Take 1 capsule by mouth. cetirizine, Chew 1 tablet daily. hydroCHLOROthiazide, Take 1 capsule by mouth daily. levothyroxine, Take 1 tablet by mouth daily. losartan, TAKE 1/2 TABLET BY MOUTH EVERY DAY FOR blood pressure Multiple Vitamin (MULTIVITAMIN PO), Take 1 tablet by mouth daily. Namzaric, Take 1 tablet by mouth daily. nebivolol, Take 1 tablet by mouth daily. NIFEdipine CC, Take 1 tablet by mouth daily before breakfast. Do not crush, chew, or split. rosuvastatin, Take 1 tablet by mouth daily. tadalafil, Take 1 tablet by mouth daily. Testosterone, 1 PKT(S) TRANSDERMALLY ONCE A DAY (IN THE MORNING) traMADol, Take 1 tablet by mouth every 8 hours as needed. Memantine HCl ER, 1 capsule 1 (one) time each day at the same time. (Patient not taking: Reported on 02/25/2025) Rosuvastatin Calcium, Take 1 tablet by mouth. (Patient not taking: Reported on 02/25/2025) * Preprocedure Instructions - Wilma Cheng APRN - 02/25/2025 10:15 AM EDT Home Medication Instructions Current Medications Medication Instructions acetaminophen (Tylenol Extra Strength) 500 MG tablet Take as needed ASPIRIN 81 PO Hold 7 days before surgery per surgeon celecoxib (CeleBREX) 100 MG capsule Hold 7 days before surgery cetirizine (ZyrTEC) 10 MG chewable tablet Take morning of surgery hydroCHLOROthiazide (Microzide) 12.5 MG capsule Hold day of surgery levothyroxine (Synthroid, Levoxyl) 100 MCG tablet Take morning of surgery losartan (Cozaar) 100 MG tablet Hold day of surgery Memantine HCl ER 28 MG capsule sustained-release 24 hr Is taking Namzaric. Multiple Vitamin (MULTIVITAMIN PO) Hold 7 days before surgery Namzaric 28-10 MG capsule sustained-release 24 hr Take night before surgery nebivolol (Bystolic) 5 MG tablet Take morning of surgery NIFEdipine CC (Adalat CC) 30 MG 24 hr tablet Take morning of surgery rosuvastatin (Crestor) 40 MG tablet Take night before surgery tadalafil (Cialis) 10 MG tablet Pt stopped in anticipation of surgery Testosterone 50 MG gel Pt stopped in anticipation of surgery traMADol (Ultram) 50 MG tablet Take as needed General Preoperative Instructions You will be called the business day before surgery with your arrival time No food after midnight the night before surgery. You can drink clear liquids up to 2 hours prior to arrival unless instructed by your surgeon otherwise. Please do not try to get all your hydration in 2 hours prior to arrival. Start the day before surgery drinking more than you usually would. After midnight, you can have clear liquids only (water,apple juice, Gatorade) up to 2 hours prior to arrival. No coffee or tea. No alcohol or smoking prior to surgery Arrive on time to avoid delays Parking/Registration procedure explained You MUST have a responsible adult available for transport to and from hospital Visitation policy for the day of surgery reviewed Bring insurance card, photo ID, along with power of trial attorney, guardianship or advanced directives if applicable Do not bring money, jewelry or other valuables Hibiclens bathing instructions reviewed if applicable Notify surgeon of fever, illness, any changes or if you decide not to have surgery Diabetes Instructions (If applicable) Take diabetes medication as instructed You may have up to 4 ounces of apple juice 2 hours prior to arrival for surgery for low glucose documented in this encounter Plan of Treatment Upcoming Encounters Date Type Department Care Team (Late st Contact Info) Description 03/31/2025 10:00 AM EDT Office Visit Medical [facility] [address], [address] [place] [address] Irene Good PA [address] [place] [address] 04/28/2025 10:50 AM EDT Office Visit Medical Office [facility] [address], [address] [place] [address] Raymond Mclean MD [address] [place] [address] documented as of this encounter Goals Goal Patient Goal Type Associated Problems Recent Progress Patient-Stated? Author Autogenerat ed Goal Care Plan Autogenerated Problem No Melanie Plummer documented as of this encounter Visit Diagnoses Diagnosis Preop examination- Primary Unspecified pre-operative examination documented in this encounter Additional Health Concerns Active Problems Noted Date Diagnosed Date Autogenerated Problem 02/03/2025 Assessment Noted Time A fall risk assessment has been complete d for the patient 02/03/2025 8:14 AM EDT A Body Mass Index follow-up plan has been documented for the patient 02/03/2025 8:42 AM EDT documented as of this encounter Care Teams Votator Machine Operator Relationship Specialty Start Date End Date Raymond Puckett MD [address] [place] [id number] PCP - General Internal Medicine 02/03/25 documented as of this encounter
--- OUTSIDE RECORDS SUMMARY | 2025-03-14 05:32 | XMS_ITS | Encounter Summary ---
Author Organization [facility] Address [address] [place] [address] Care Team Providers Care Strategic Intelligence Officer Name Role Phone Raymond Puckett MD Primary Care Provider [phone] Reason for Referral * Consultation (Routine) - Authorized Specialty Diagnoses / Procedures Referred By Gerardo mckeon Referred To Contact Physical Therapy Diagnoses Arthritis of left hip Veena Finnegan APRN [address] [place] [phone] Phone: tel: fax: Referral ID Status Reason Start Date Expiration Date Visits Requested Visits Authorized [id number] Authorized Consult and Treat 03/15/2025 09/14/2026 1 1 Reason for Visit * Auth/Cert (Routine) Specialty Diagnoses / Procedures Referred By Gerardo mckeon Referred To Contact Diagnoses Arthritis of left hip Arthritis of left hip [M16.12] Procedures ME TOTAL HIP ARTHROPLASTY ARTHROPLASTY, HIP, TOTAL, ANTERIOR APPROACH Raymond Mclean MD [address] [place] [phone] Phone: tel: fax: [facility] Operating Room [address] [place] [address] Phone: tel: Referral ID Status Reason Start Date Expiration Date Visits Re quested Visits Authorized [id number] 1 1 Encounter Details Date Type Department Care Team (Latest Contact Info) Description 03/14/2025 5:32 AM EDT - 03/15/2025 12:57 PM EDT Hospital Encounter [facility] [address] [place] [address] Raymond Mclean MD [address] [place] [address] Arthritis of left hip Discharge Disposition: Home or Self Care Social History Tobacco Use Types Packs/Day Years Used Date Smoking Tobacco: Former Cigarettes Smokeless Tobacco: Never Comments:Quit 1966. Alcohol Use Standard Drinks/Week Comments [...] Sign Reading Time Taken Comments Blood Pressure 109/68 03/15/2025 11:09 AM EDT Pulse 61 03/15/2025 11:09 AM EDT Temperature 36.4 C (97.5 F) 03/15/2025 11:09 AM EDT Respiratory Rate 16 03/15/2025 11:09 AM EDT Oxygen Saturation 96% 03/15/2025 11:09 AM EDT Inhaled Oxygen Concentration - - Weight 77.6 kg (171 lb 1.2 oz) 03/14/2025 6:42 A M EDT Height 172.7 cm (5' 8 ) 03/14/2025 6:42 AM EDT Body Mass Index 26.01 03/14/2025 6:42 AM EDT documented in this encounter Functional Status * Calculated C-SSRS Risk Score (Lifetime/Recent) Answer Date of Assessment Author No Risk Indicated 03/14/2025 8:00 PM EDT Oksana Epps RN * Question Answer Date of Assessment Author 1. Wish to be (Past 1 Month) No 025 8:00 PM EDT Oksana Epps RN 2. Non-Specific Active Suici odalis Thoughts (Past 1 Month) No 03/14/2025 8:00 PM EDT Saba Epps RN 6. Suicidal Behavior (Lifetime) No 8:00 PM EDT Oksana Epps RN documented as of this encounter Discharge Instructions * Discharge Instructions* Veena Finnegan APRN - 03/14/2025 2:06 PM EDT 1. You will be on Aspirin 81mg twice daily for 4 weeks for deep vein thrombosis prevention. It is important that you take each pill on time every day and to take it for the full 4 weeks. 2. Please see your discharge medication list for the post-operative medications you have been given. Call the clinic with any questions or concerns. 3. You have been given Docusate Sodium to take daily to prevent constipation while taking narcotic pain medications. Take this as long as you are taking narcotics. You can also begin Miralax daily and continue until you have weaned off your narcotic pain medications. If you have had no bowel movement on post-op day #3 you need to take Milk of Magnesia as directed over the counter. Then if no bowel movement by post-op day #5 you need to use a Dulcolax Suppository over the counter as directed. Ifstill no bowel movement at that time your need to call the clinic. Essential hypertension Plan: -resume your nebivolol at discharge - check your blood pressure daily -once your systolic blood pressure (top number) is greater than 120 you can resume your nifedipine. - Continue to check your blood pressure and if your systolic blood pressure ( top number) remains greater than 120, you can resume your hydrochlorothiazide, then your losartan. documented in this encounter Medications at Time of Discharge [...] capsule Take 1 capsule by mouth daily. cetirizine (ZyrTEC) 10 MG tablet Take 1 tablet by mouth daily. docusate sodium (Colace) 250 MG capsule Take 1 capsule by mouth 2 times a day. 60 capsule 03/15/2025 5 gabapentin (Neurontin) 100 MG capsule Take 1 capsule by mouth 3 times a day. If this medication makes you drowsy you may take it only at bedtime 30 capsule 03/14/2025 hydroCHLOROthiaz khushbu (Microzide) 12.5 MG capsule Take 1 capsule by mouth every morning. levothyroxine (Synthroid, Levoxyl) 100 MCG tablet Take 1 tablet by mouth daily. losartan (Cozaar) 100 MG tablet Take 1 tablet by mouth daily. Multiple Vitamin (MULTIVITAMIN PO) Take 1 tablet by mouth daily. naloxone (Narcan) 4 mg/0.1 mL nasal spray 1. Give 1 spray in nostril for no/slow breathing or cannot wake after opioid use 2. Call 911 3. Repeat in other nostril if symptoms continue 1 each 03/15/2025 Namzaric 28-10 MG capsule sustained-releas e 24 hr Take 1 tablet by mouth daily. nebivolol (Bystolic) 5 MG tablet Take 1 tablet by mouth daily. NIFEdipine CC (Adalat CC) 30 MG 24 hr tablet Take 1 tablet by mouth daily before breakfast. Do not crush, chew, or split. omeprazole (PriLOSEC) [address] capsule Take [...] for 8 doses. 8 tablet 03/15/2025 5 documented as of this encounter Miscellaneous Notes * Progress Notes - Trinity Werner - 03/15/2025 12:21 PM EDT Physical Therapy Treatment Patient Name: Devon Joyner Today's Date: 03/15/2025 PT Discharge Recommendations: Home with assistance, Outpatient PT, Outpatient OT (Assist of ) Equipment Recommended: Patient owns appropriate equipment Subjective I feel good - I can't believe I walked that far. Participants in Care Family/Caregiver Present: Yes Family/Caregiver: Spouse Strip Roller: Not Applicable Presentation Oxygen Therapy: None (Room air) Lines and Tubes: Intravenous access Pre-Session: Sitting in chair, Lines intact, Chair alarm Pre-Session Comments: Nurse and patient agreeable to session Post-Session: Sitting in chair, Call light in reach, RN notified, Lines intact, Chair alarm Post-Session Comments: All needs met. Precautions Left Lower Extremity Weight Bearing Status: Weight Bearing as Tolerated Right Lower Extremity Weight Bearing Status: Weight Bearing as Tolerated Left Upper Extremity Weight Bearing Status : Weight bearing as tolerated Right Upper Extremity Weight Bearing Status : Weight bearing as tolerated Medical Precautions: Fall precautions Objective Pain Pain in surgical hip during gait and transitional activities; patient did not rate. Delirium Screening RASS: Alert and calm Confusion Assessment Method-ICU (CAM-ICU/PCAM-ICU) Feature 3: Altered Level of Consciousness: Negative Therapeutic Activity (10 minutes) Pt performed transitional skills and standing activity to promote functional mobility and progress activity tolerance. Patient participating in therapeutic activities as described in detail in sections below. Transfers Transfer Exam: Sit to stand Level of [place] [employer]: Contact guard Physical/Nonphysical Assist: Moderate cues, Verbal Cues, Nonverbal cues (demo/gestures) Assistive Device: Walker, rolling Transfer Exam: Stand to Sit Level of [place] [employer]: Contact guard Physical/Nonphysical Assist: Verbal Cues, Minimal cues Assistive Device: Walker, rolling Toilet Transfer Type of Transfer: Ambulation, To toilet Balance Postural Appearance Posture: Forward head, Rounded shoulders Static Sitting Balance Static Sitting-Balance Support: No upper extremity support, Feet supported Static Sitting-Level of Assistance: Standby assist Dynamic Sitting Balance Dynamic Sitting-Balance Support: Feet supported Dynamic Sitting-Balance: Anterior/Posterior weight shifts, Lateral weight shifts Level of Assistance: Standby assisst Static Standing Balance Static Standing-Balance Support: Left upper extremity support, Right upper extremity support Static Standing-Level of Assistance: Standby assist Dynamic Standing Balance Dynamic Standing-Balance Support: Right upper extremity support, Left upper extremity support Dynamic Standing-Balance: Lateral weight shifts, Anterior/Posterior weight shifts Dynamic Standing Level of Assistance: Standby assist Gait Training (20 minutes) Device: Rolling walker Apparatus: None Assistance: Standby assist Distance: 150 feet on level surface Gait Analysis: Improvement in sequencing gait with walker and fewer cues this date. Gait Training Interventions: Tactile cues to thoracic spine and gluts for straighter posture as well as verbal cues for posture. Verbal cues and demonstration for sequencing correctly with surgical LE and walker, but less than prior time with gait training. Stairs Rails : None Device: Walker (rolling walker) Assistance: Contact guard Number of Stairs: 1 step Stair Training Interventions: and patient taught how to go up one platform step with walker. Patient needed verbal cues for sequencing but was able to do correctly the first try. is going to have son come home and be there when patient goes into the home. Therapeutic Exercise (15 minutes) Access Code: [email or web address]; URL: [email or web address] Date: 03/15/2025 Prepared by: Trinity Werner Program Notes Anterior Hip Exercises - Phase 1 (Days 1-7) Ankle Pumps - 3 x daily - 20 reps - Phase 1 (Days 1-7) Knee Push Downs - 3 x daily - 20 reps - 3 hold - Phase 1 (Days 1-7) Buttocks Squeeze - 3 x daily - 20 reps - 3 hold - Phase 1 (Days 1-7) Heel Slide (Supine) - 3 x daily - 20 reps - 3 hold - Phase 1 (Days 1-7) Short Arc Quad - 3 x daily - 10 reps - 3 hold - Phase 1 (Days 1-7) Hip abduction/Adduction - 3 x daily - 20 reps - Phase 1 (Days 1-7) Straight Leg Raises - 3 x daily - 20 reps - Phase 1 (Days 1-7) Long Arc Quad - 3 x daily - 20 reps - 3 hold - Phase 1 (Days 1-7) Seated Knee Flexion - 3 x daily - 20 reps - 3 hold Patient Education - Anterior Hip Precaution Instructions. Patient and taught exercise program and patient able to reproduce with only minimal cues. Assessment Patient improved this date with distance walking and fewer cues needed for functional ability. Should be ready to go home with and outpatient PT/OT this date. PT Recommendations Discharge Destination: Home with assistance, Outpatient PT, Outpatient OT (Assist of ) Discharge Equipment: Patient owns appropriate equipment Plan Continue to progress toward goals per plan as medically appropriate. PT Goals PT GOAL DETAILS Goal Established Date Time Frame Goal Status PT Goal 1: Patient will be independent with bed mobility to progress with transfers. 03/14/25 2 weeks PT Goal 2: Patient will be modified independent with sit<>stand transfer with LRAD to progress with gait activities. 03/14/25 2 weeks PT Goal 3: Patient will walk 100 feet on level surface with LRAD and SBA to be able to go home withwife. 03/14/25 2 weeks PT Goal 4: Patient will be able to walk up and down 1 step with LRAD and CGA to be able to get intohis house. 03/14/25 2 weeks PT Goal 5: Patient and will be indepedent with HEP designed to address strenth and mobility tocontinue to progress after discharge. 03/14/25 2 weeks Written by Trinity Werner on 03/15/25 at 12:21 PM. * Familia Brand, RN - 03/15/2025 11:50 AM EDT Images from the original note were not included. 283 Sex After Hip Replacement: Positions (UK) You?ve had hip replacement surgery and may be wondering what positions are safe for sex. The positions below should be safe after a hip replacement. Try to avoid putting too much pressure on your newjoint. Also, take the same care getting out of a position as you did getting into it. Always keep the joint within a safe range of motion. After a hip replacement, be sure the knee on the affected side: ? Remains below the hip. ? Does not cross the body?s midpoint (the bellybutton). Setting the Scene Having sex can be a little easier if you plan ahead. Here are a few tips: ? Take a mild pain medication about 20-30 minutes before sex. This can help prevent minor aches. Avoid taking medication so strong that it masks warning pain. ? Have pillows and rolled towels nearby. They can be used for body support. ? Relax. Do a few easy stretches within a safe range of motion. [id number] ? Being on the bottom is safe for a man or a woman with a new joint. ? The partner on the bottom keeps his or her legs apart and turned out slightly. Use pillows to support the legs on the outside. Depending on comfort, the person on the bottom can recline propped up on pillows or lie flat. ? If the man has a new hip joint, place pillows between his knees. This keeps them from crossing his body?s midpoint (bellybutton). Sitting in a Chair ? This is a safe position for a man or a woman with a new joint. ? The man sits on a straight chair. His feet are supported or are flat on the floor. The woman sitson the man?s lap. Woman Lying and Man Kneeling ? This position works for a woman with a new hip joint. ? The woman lies on the bed on her back, buttocks near the edge of the bed. Both feet should be supported or flat on the floor. ? The man kneels in front of the woman, on pillows placed on the floor. His hands are placed on either side of her body. Side-Lying Position ? A woman with a replaced hip joint can use this position. She lies on her side, with the new jointon the bottom. ? Use pillows for support. Man Propped on Elbows ? This position is for a man with a new hip joint. ? He lies on top of his partner. His legs are stretched out behind him, with a pillow between his knees. ? He supports his weight on his elbows. Special Note If your partner has had a hip replacement: ? Make sure he or she has the surgeon?s okay before having sex. ? Help your partner stay within a safe range of motion. ? Control the amount and speed of movement during sex. ? Do not put all your weight on your partner?s hips. 04/11 * Discharge Summary - Veena Finnegan APRN - 03/15/2025 11:32 AM EDT Images from the original note were not included. Hospitalization Admit Date/Time: 03/14/2025 5:32 AM Admitting Attending: Raymond Mclean Discharge Date: 03/15/2025 Discharge Attending Physician: Raymond Mclean MD PCP name and Address: Raymond Puckett MD [address] [place] [address] [facility] [address] / [place] [address] Referring provider name and address: Raymond Puckett MD [address] [place] [address] [address] [address] [place] [address] Chief Concern, Brief History of Present Illness, and Hospital Course Patient [facility] to [facility] on 03/14/25 for their scheduled surgery. Patient tolerated the procedure without complication, was extubated in the operating room, and transferred to the PACU for recovery from anesthesia. Shortly thereafter, patient was transferred to the acute care floorfor recovery. Patient's hospital course was without complications. Patient was given prophylactic antibiotics, pain was controlled on oral pain medications, and patient tolerated a regular diet. The patient was kept on DVT prophylaxis with SCD's and aspirin. The patient was cleared to be dischargedby PT/OT prior to discharge. The patient was discharged home. Surgeries and Procedures ARTHROPLASTY, HIP, TOTAL, ANTERIOR APPROACH (Left) Medication List PAUSE taking these medications * ASPIRIN 81 PO Wait to take this until: April 12, 2025 Take 81 mg by mouth daily. You also have another medication with the same name that you may need to continue taking. celecoxib 100 MG capsule Wait to take this until: March 29, 2025 Commonly known as: CeleBREX Take 1 capsule by mouth daily. testosterone 50 MG/5GM (1%) gel Wait to take this until: April 12, 2025 Commonly known as: Androgel Place 50 mg on the skin daily. * This list has 1 medication(s) that are the same as other medications prescribed for you. Read thedirections carefully, and ask your doctor or other care provider to review them with you. .. acetaminophen 500 MG tablet Commonly known as: Tylenol Extra Strength Take 2 tablets by mouth every 8 hours. * aspirin 81 MG EC tablet Take 1 tablet by mouth 2 times a day for 28 days. For 4 weeks post-op for blood clot prevention cefadroxil 500 MG capsule Commonly known as: Duricef Take 1 capsule by mouth 2 times a day for 7 days. To prevent post-op infection cetirizine 10 MG tablet Commonly known as: ZyrTEC Take 1 tablet by mouth daily. docusate sodium 250 MG capsule Commonly known as: Colace Take 1 capsule by mouth 2 times a day. gabapentin 100 MG capsule Commonly known as: Neurontin Take 1 capsule by mouth 3 times a day. If this medication makes you drowsy you may take it only at bedtime hydroCHLOROthiazide 12.5 MG capsule Commonly known as: Microzide Take 1 capsule by mouth every morning. levothyroxine 100 MCG tablet Commonly known as: Synthroid, Levoxyl Take 1 tablet by mouth daily. losartan 100 MG tablet Commonly known as: Cozaar Take 1 tablet by mouth daily. MULTIVITAMIN PO Take 1 tablet by mouth daily. naloxone 4 mg/0.1 mL nasal spray Commonly known as: Narcan 1. Give 1 spray in nostril for no/slow breathing or cannot wake after opioid use 2. Call 911 3. Repeat in other nostril if symptoms continue Namzaric 28-10 MG capsule sustained-release 24 hr Generic drug: Memantine HCl-Donepezil HCl Take 1 tablet by mouth daily. nebivolol 5 MG tablet Commonly known as: Bystolic Take 1 tablet by mouth daily. NIFEdipine CC 30 MG 24 hr tablet Commonly known as: Adalat CC Take 1 tablet by mouth daily before breakfast. Do not crush, chew, or split. omeprazole [address] capsule Commonly known as: PriLOSEC Take 1 capsule by mouth daily for 28 days. Do not crush or chew. oxyCODONE 5 MG immediate release tablet Commonly known as: Roxicodone Take 1 tablet by mouth every 6 hours as needed for severe pain for up to 8 days. rosuvastatin 40 MG tablet Commonly known as: Crestor Take 1 tablet by mouth daily. tadalafil 10 MG tablet Commonly known as: Cialis Take 1 tablet by mouth daily. traMADol 50 MG tablet Commonly known as: Ultram Take 1 tablet by mouth every 4 hours as needed for severe pain. tranexamic acid 650 MG tablet tablet Commonly known as: Lysteda Take 1 tablet by mouth 3 times a day for 8 doses. * This list has 1 medication(s) that are the same as other medications prescribed for you. Read thedirections carefully, and ask your doctor or other care provider to review them with you. Where to Get Your Medications These medications were sent to [facility] [place] [address] acetaminophen 500 MG tablet aspirin 81 MG EC tablet cefadroxil 500 MG capsule docusate sodium 250 MG capsule gabapentin 100 MG capsule naloxone 4 mg/0.1 mL nasal spray omeprazole [address] capsule oxyCODONE 5 MG immediate release tablet traMADol 50 MG tablet tranexamic acid 650 MG tablet tablet Discharge Diagnosis Medical Problems Active and Resolved Hospital Problems Hospital * (Principal) Arthritis of left hip Post Discharge Instructions See post-op instruction sheet Outpatient Follow-Up Future Appointments Date Time Provider Department Center 03/31/2025 10:00 AM Irene Good PA [facility] 04/28/2025 10:50 AM Raymond Mclean MD [facility] Test Results Pending At Discharge Pertinent Physical Exam At Time of Discharge Physical Exam Tegaderm dressing in place. Motor/sensation intact. Discharge Disposition/Condition Disposition: Home Condition: Stable (s/sx potential problems absent or manageable) I spent >30 minutes of patient care and instruction time in preparation for this discharge. Cosigned by Raymond Mclean MD at 03/15/2025 4:00 PM EDT Associated attestation - Raymond Mclean MD - 03/15/2025 4:00 PM EDT The patient was seen only by Advanced Practice Provider (KADEN), and care was reviewed with me. * Progress Notes - Dutch Gamble, HEAD END DESIZING MACHINE OPERATOR - 03/15/2025 11:10 AM EDT Interval Hx 03/15/2025 Pt seen in junction with Orthopedics. Plan discussed with patient and orthopedic team. His systolicblood pressures are ranging 103-120, heart rate of 58-64 with room air saturations of 94%. He did have a BM this morning and reports he is urinating without difficulty. Past medical history, home medications, allergies, social and family history are reviewed. Review of Systems Constitutional: No overt complaints HENT: Negative. Eyes: Negative. Respiratory: Negative. Cardiovascular: Negative. Gastrointestinal: No nausea or vomiting Endocrine: Negative. Genitourinary: Negative. Musculoskeletal: pain is controlled this morning Skin: Negative. Neurological: Negative. Hematological: Negative. Psychiatric/Behavioral: Negative. Last Vitals Visit Vitals BP 109/68 Pulse 61 Temp 36.4 ??C (97.5 ??F) Resp 14 Ht 1.727 m (5' 8 ) Wt 77.6 kg (171 lb 1.2 oz) SpO2 96% BMI 26.01 kg/m?? Smoking Status Former BSA 1.93 m?? PHYSICAL EXAM Constitutional: Appearance: No acute distress HENT: Head: Normocephalic and atraumatic. Nose: Nose normal. Mouth: Mucous membranes are moist. Eyes: Conjunctiva/sclera: Conjunctivae normal. Cardiovascular: Rate and Rhythm: Normal rate and regular rhythm. Pulses: Normal pulses. Heart sounds: Normal heart sounds. No edema is noted Pulmonary: Effort: Pulmonary effort is normal. Breath sounds: Normal breath sounds. Abdominal: General: Bowel sounds are normal. Palpations: Abdomen is soft. Musculoskeletal: Left thigh swelling noted Skin: General: Skin is warm and dry. Capillary Refill: Capillary refill takes less than 2 seconds. Dressing dry and intact Neurological: General: No focal deficit present. Mental Status: alert and oriented to person, place, and time. Mental status is at baseline. Psychiatric: Mood and Affect: Mood normal. Behavior: Behavior normal. Current medications Current Medications[1] Recent labs and diagnostic tests Results from last 7 days Lab Units 03/15/25 0304 SODIUM mmol/L 137 POTASSIUM mmol/L 4.6 CHLORIDE mmol/L 107 CO2 mmol/L 21* BUN mg/dL 35* CREATININE mg/dL 1.79* CALCIUM mg/dL 8.5* GLUCOSE mg/dL 146* ASSESSMENT AND PLAN Essential hypertension History of PAT/PSVT - at baseline he is on Bystolic 5 mg daily ( resumed), nifedipine XL 30 mg daily ( on hold ), hydrochlorothiazide 12.5 mg daily ( on hold), and losartan 100 mg daily (on hold). - Systolic pressures ranging 103-120 - reports no dizziness with physical therapy Plan: - will leave him the following instructions: -resume your nebivolol at discharge - check your blood pressure daily -once her systolic blood pressure (top number) is greater than 120 you can resume your nifedipine. - Continue to check your blood pressure and if your systolic blood pressure ( top number) remains greater than 120, you can resume your hydrochlorothiazide, then your losartan. Chronic kidney disease stage III - at baseline preoperatively his creatinine was found to be 1.95, today it is 1.79 - he tells me he has been taking his Celebrex twice a day, recently decreased because of his creatinine - primary care doctor does continue to monitor his renal function Plan: - will avoid nephrotoxins, discussed with Orthopedics and with the patient that he should remain off of his Celebrex - follow-up with his primary as needed Obstructive sleep apnea -He did wear his CPAP overnight Plan: - no issues, he will continue to use his Cpap SP Lt total hip replacement -DVT prophylaxis is aspirin 81 mg twice a day for 4 weeks - is tolerating his physical therapy Plan: - discharge home when appropriate with Ortho CHRONIC STABLE RESOLVED Mild cognitive impairment, he can continue his Namzaric Hypothyroidism, he can continue his levothyroxine upon discharge Stephane Gamble [facility] Medicine Secure Chat [1] Current Facility-Administered Medications Medication Dose Route Frequency Provider Last Rate Last Admin acetaminophen (Tylenol) tablet 1,000 mg 1,000 mg Oral q8h [facility] Brandan Calix MD 1,000 mg at 03/15/25 0515 aspirin chewable tablet 81 mg 81 mg Oral BID Brandan Calix MD 81 mg at 03/15/25 0832 bisacodyl (Dulcolax) suppository 10 mg 10 mg Rectal BID PRN Brandan Calix MD calcium-vitamin D 500-200 MG-UNIT per tablet 1 tablet 1 tablet Oral BID with meals Brandan Calix MD 1 tablet at 03/15/25 075 cetirizine (ZyrTEC) tablet 10 mg 10 mg Oral Daily Sade Carlson PA 10 mg at 03/15/25 08 diphenhydrAMINE (Benadryl) tablet 12.5 mg 12.5 mg Oral q4h PRN Brandan Calix MD donepezil (Aricept) tablet 10 mg 10 mg Oral Nightly Sade Carlson PA 10 mg at 03/14/252052 gabapentin (Neurontin) capsule 100 mg 100 mg Oral q8h Brandan Calix MD 100 mg at 03/15/25 075 HYDROmorphone (Dilaudid) injection 0.5 mg 0.5 mg Intravenous q6h PRN Brandan Calix MD levothyroxine (Synthroid, Levoxyl) tablet 100 mcg 100 mcg Oral q AM Sade Carlson PA 100 mcg at 03/15/25 0515 magnesium hydroxide (Milk of Magnesia) 400 MG/5ML suspension 30 mL 30 mL Oral BID PRN Brandan Calix MD memantine (Namenda) tablet 10 mg 10 mg Oral BID Sade Carlson PA 10 mg at 03/15/25 0832 nebivolol (Bystolic) tablet 5 mg 5 mg Oral Daily Sade Carlson PA 5 mg at 03/15/25 08 ondansetron (Zofran) injection 4 mg 4 mg Intravenous q6h PRN Brandan Calix MD oxyCODONE (Roxicodone) immediate release tablet 5 mg 5 mg Oral q4h PRN Brandan Calix MD 5 mg at03/15/25 0954 pantoprazole (Protonix) EC tablet 40 mg 40 mg Oral Daily before breakfast Brandan Calix MD 40 mg at 03/15/25 075 polyethylene glycol (Miralax) packet 17 g 17 g Oral Daily with breakfast Brandan Calix MD 17 g at 03/15/25 075 rosuvastatin (Crestor) tablet 40 mg 40 mg Oral Daily Sade Carlson PA 40 mg at 03/15/25 0831 senna-docusate (Ngozi-Colace) 8.6-50 MG per tablet 2 tablet 2 tablet Oral Nightly Brandan Calix MD 2 tablet at 03/14/252052 traMADol (Ultram) tablet 100 mg 100 mg Oral q8h ROSE Brandan Calix MD 100 mg at 03/15/25513 traMADol (Ultram) tablet 50 mg 50 mg Oral q12h PRN Brandan Calix MD tranexamic acid (Lysteda) tablet 650 mg 650 mg Oral TID Veena Finnegan APRN 650 mg at 03/15/25 0831 * Progress Notes - TresJazmineodessa Mayfield - 03/15/2025 9:07 AM EDT Occupational Therapy Evaluation Patient Name: Devon Joyner Today's Date: 03/15/2025 OT Discharge Recommendations: Home with assistance, Outpatient PT Equipment Recommended: Patient owns appropriate equipment History Devon Joyner is 79 y.o. male admitted 03/14/2025 for work-up of Arthritis of left hip. Problem List Active Hospital Problems Diagnosis Date Noted Arthritis of left hip 02/03/2025 Procedures 03/14/2025 Procedure(s): ARTHROPLASTY, HIP, TOTAL, ANTERIOR APPROACH Past Medical History Patient has a past medical history of Adverse effect of anesthesia, HLD (hyperlipidemia), HTN (hypertension), Hypothyroid, Mild cognitive impairment, and TEO on CPAP. Past Surgical History Patient has a past surgical history that includes Hand surgery (Left); Inguinal Hernia Repair (Right); and Colonoscopy. Precautions None Subjective Participants in Care Family/Caregiver Present: No Family/Caregiver: Spouse Strip Roller: Not Applicable Presentation Oxygen Therapy: None (Room air) Lines and Tubes: Intravenous access Pre-Session: Sitting in chair, Lines intact, Chair alarm Pre-Session Comments: Nurse and patient agreeable to session Post-Session: Sitting in chair, Call light in reach, RN notified, Lines intact, Chair alarm Post-Session Comments: All needs met. Home Living/Set-up Lives With: Spouse Home Type: House Home Adaptive Equipment: Rolling walker, shower chair Home Layout: One level, Able to live on one level with bedroom/bathroom, Stairs to enter without rails Number of Stairs: 1 Bathroom: Tub/Shower: Walk-in shower Bathroom: Toilet: Elevated toilet seat with arms Bathroom: Accessibility: Accessible Prior Level of Function Receives Help From: Spouse (No Assist required Except for donning socks (slip on shoes)) Level of Mobility: Ambulatory- community Mobility [place] [employer]: Independent gait without device History of Falls: Yes (Last one 3 weeks ago on a hunting trip -ETOH involved) ADL Performance: Needs assistance Bathing: Independent Upper Body Dressing: Independent Lower Body Dressing: Needs assist Grooming: Independent Toileting: Independent Eating: Independent Home Management Skills: Needs assist Patient/Family Goals Statement pt agreeable to assessment Objective Pain Pt requesting pain medication and RN aware Delirium Screening RASS: Alert and calm Confusion Assessment Method-ICU (CAM-ICU/PCAM-ICU) Feature 3: Altered Level of Consciousness: Negative Cognition Overall Cognitive Status: Within Functional Limits Arousal/Alertness: Appropriate responses to stimuli Mood/Behavior: Alert Orientation Level: Oriented X4 Single Step Commands: Consistently Multi-Step Commands: Consistently Method of Communication: Verbal Right Upper Extremity Examination RUE ROM Assessment RUE Assessment: Within Functional Limits Manual Muscle Testing - RUE: Within functional limits Left Upper Extremity Examination LUE ROM Assessment LUE Assessment: Within Functional Limits Manual Muscle Testing - LUE: Within functional limits Right Lower Extremity Examination RLE ROM Assessment RLE Assessment: Within Functional Limits Manual Muscle Testing - RLE: Within functional limits Left Lower Extremity Examination LLE ROM Assessment LLE Assessment: Within Functional Limits Manual Muscle Testing: Within functional limits Transfers Transfer Exam: Sit to stand Level of [place] [employer]: Contact guard Physical/Nonphysical Assist: Moderate cues, Verbal Cues, Nonverbal cues (demo/gestures) Assistive Device: Walker, rolling Transfer Exam: Stand to Sit Level of [place] [employer]: Contact guard Physical/Nonphysical Assist: Verbal Cues, Minimal cues Assistive Device: Walker, rolling Toilet Transfer Level of [place] [employer]: Contact guard Physical/Nonphysical Assist: Moderate cues, Verbal Cues Type of Transfer: Ambulation, To toilet Assistive Device: Walker, rolling Self-Care Interventions Self Care/Home Management (ADLs) Time Entry: 10 Feeding Feeding Level of Assistance: Standby assist, Setup Feeding Where Assessed: Chair Level Grooming Grooming Level of Assistance: Setup, Contact guard, Moderate verbal cues Grooming Where Assessed: Standing sinkside UE Dressing UE Dressing Level of Assistance: Setup, SBA, Minimal verbal cues UE Dressing Where Assessed: Chair level Lower Extremity Dressing Pants Level of Assistance: Contact guard, Moderate verbal cues, Setup Sock Level of Assistance: Contact guard, Minimal verbal cues, Setup LE Dressing Where Assessed: Chair level Toileting Toileting Level of Assistance: SBA, Setup Where Assessed: Toilet Pt completed additional ADL training including Grooming, UE Dressing, LE Dressing, Toileting transfer, Toileting hygiene, Eating/Feeding, Education on bathroom and shower safety, and Functional mobility to simulate household distance/management. OT provided CGA to SBA for balance with additional verbal cues for safety, posture, and adaptive techniques. OT instructed pt that they have no precautions with flexion and able to complete LE dressing without the use of assistive devices and how this can promote healing, decreased edema, and increased mobility/flexibility. Education on shower transfer and the benefit of initial supervision for bathing as heat and pain medication may cause dizziness and LOB increasing risk for fall. Pt with decreased safety awareness and OT provided additional cues to correct safety issues and problem solve. Standardized Assessments [facility] 6-Click Daily Activities Help from Other: Don/Doff Regular Lower Body Clothings: None Help From Other: Bathing: Little Help From Other: Toileting: None Help From Other: Don/Doff Upper Body Clothings: None Help From Other: Grooming: None Help From Other: Eating Meals: None [facility] 6 Click - Daily Activities Score: 23 Assessment Pt will not be added to OT caseload due to treatment/education being completed this session and no further Acute OT intervention needed. OT Findings: Impaired ADL performance, Impaired IADL performance, Impaired functional mobility, Impaired balance Evaluation/Treatment Tolerance: Patient limited by pain, Patient limited by fatigue Barriers to Discharge: Comorbidities Eval Complexity Occupational Profile: Brief history including review of medical/therapy records relating to presenting problem Performance Deficits: Activities of daily living (ADLs), Instrumental activities of daily living (IADLs), Habits, Routines, Roles, Leisure, Physical Clinical Decision Making: Low Overall Eval complexity: Low OT Recommendations Discharge Destination: Home with assistance, Outpatient PT Discharge Equipment: Patient owns appropriate equipment Plan Patient no longer demonstrates need for inpatient occupational therapy services. Patient to be discharged from occupational therapy. Written by Kathy Joshua on 03/15/25 at 11:52 AM. * Care Plan - Anamika Sosa RN - 03/15/2025 9:01 AM EDT Problem: Adult Inpatient Plan of Care Goal: Plan of Care Review Outcome: Ongoing, Progressing Flowsheets (Taken 03/15/2025 0901) Plan of Care Reviewed With: patient Goal: Patient-Specific Goal (Individualized) Outcome: Ongoing, Progressing Flowsheets (Taken 03/15/2025222 by Oksana Epps RN) Patient/Family-Specific Goals (Include Timeframe): pt will report pain at goal or below and pt willbe free from falls by discharge day Individualized Care Needs: pain will be assessed every 4 hrs and prn, pt will be ambulated with staff at all times Anxieties, Fears or Concerns: pain, safety Goal: Absence of Hospital-Acquired Illness or Injury Outcome: Ongoing, Progressing Goal: Optimal Comfort and Wellbeing Outcome: Ongoing, Progressing Goal: Readiness for Transition of Care Outcome: Ongoing, Progressing Problem: Skin Injury Risk Increased Goal: Skin Health and Integrity Outcome: Ongoing, Progressing Intervention: Optimize Skin Protection Flowsheets (Taken 03/15/2025222 by Oksana Epps RN) Activity Management: activity adjusted per tolerance Problem: Hip Arthroplasty Goal: Optimal Coping Outcome: Ongoing, Progressing Goal: Absence of Bleeding Outcome: Ongoing, Progressing Intervention: Monitor and Manage Bleeding Flowsheets (Taken 03/15/2025222 by Oksana Epps RN) Bleeding Management: dressing monitored Goal: Effective Bowel Elimination Outcome: Ongoing, Progressing Goal: Fluid and Electrolyte Balance Outcome: Ongoing, Progressing Goal: Optimal Functional Ability Outcome: Ongoing, Progressing Goal: Absence of Infection Signs and Symptoms Outcome: Ongoing, Progressing Goal: Intact Neurovascular Status Outcome: Ongoing, Progressing Goal: Optimal Pain Control and Function Outcome: Ongoing, Progressing Goal: Nausea and Vomiting Relief Outcome: Ongoing, Progressing Goal: Effective Urinary Elimination Outcome: Ongoing, Progressing Goal: Effective Oxygenation and Ventilation Outcome: Ongoing, Progressing * Familia Brand RN - 03/15/2025 7:49 AM EDT Images from the original note were not included. [id number] After Hip Replacement: Using Your Walker After hip replacement, you?ll likely use a walker to get around while you recover. There are a few types of walkers: ?? The standard nonrolling walker ?? The 2-wheeled (front) rolling walker ?? The 4-wheeled rolling walker Your physical therapist or occupational therapist will teach you how to use a walker safely and help you choose the best one for you. Later, you may change from a walker to crutches or a cane. Using a walker ?? Move the walker a few inches in front of you. ?? Lean on the walker so it supports you. Step into the center with your operated leg. Then step forward with your good leg. Repeat. ?? As you get more comfortable, you?ll be able to move the walker as you step. Walking up a curb ?? Move your feet and walker as close to the curb as possible. ?? Put your weight on both legs, and then lift the walker onto the curb. ?? Step on the curb with your good leg. Using the walker to support your weight, bring up your operated leg. Walking down a curb ?? Move your feet and walker as close to the curb as possible. ?? Lower the walker onto the ground, keeping its back legs against the curb. ?? Using the walker to support your weight, lower your operated leg. Then step down with your good leg. ?? Never climb stairs or use an escalator with your walker. Last Reviewed Date: 2024 00:00:00 ?? [id number] [employer]. All rights reserved. This information is not intended as a substitute for professional medical care. Always follow your healthcare professional's instructions. * Steph Martinez - Familia Benitez RN - 03/15/2025 7:49 AM EDT Images from the original note were not included. 51256 Using an Incentive Spirometer An incentive spirometer is a handheld device that helps you do deep breathing exercises after surgery. It also helps lower the risk of breathing problems if you have a lung disease or condition. These exercises expand your lungs, aid in circulation, and may help prevent pneumonia. Deep breathing exercises also help you breathe better and improve lung function by: ?? Keeping your lungs clear. ?? Making your breathing muscles stronger. ?? Helping prevent respiratory complications or problems. The incentive spirometer gives you a way to take an active part in your recovery. A nurse or respiratory therapist will teach you breathing exercises. To do these exercises, you will breathe in through your mouth and not your nose. The incentive spirometer only works correctly if you breathe in through your mouth. Deep breathing expands the lungs, aids circulation, and helps prevent pneumonia. Your health care provider or their staff will tell you how to use the device, your targeted volume(s), and provide other helpful tips to prevent complications (such as pain, dizziness, feeling lightheaded) when blowing in the incentive spirometer. Steps to clear lungs Step 1. Exhale normally. Then, inhale normally. ?? Relax and breathe out. Step 2. Place your lips tightly around the mouthpiece. ?? Make sure the device is upright and not tilted. ?? Sit up and breathe out (exhale) fully. ?? Tightly seal your lips around the mouthpiece. Step 3. Inhale as much air as you can through the mouthpiece. Don't breathe through your nose. ?? Breathe in (inhale) slowly and deeply. ?? Hold your breath long enough to keep the balls, piston, or disk raised for at least 3 to 5 seconds, or as instructed by your health care provider. ?? Exhale slowly to allow the balls, piston, or disk to fall before repeating. Note: Some spirometers have an indicator to let you know that you are breathing in too fast. If theindicator goes off, breathe in more slowly. Step 4. Repeat the exercise regularly. ?? Do sets of 10 exercises every hour while you're awake, or as instructed by your health care provider. Don't do more than 30 breaths in each set. ?? If you were taught deep breathing and coughing exercises, do them regularly as instructed by your provider, nurse, or respiratory therapist. Follow-up care Make a follow-up appointment as directed by your health care provider. Also, follow up with your provider as advised if your symptoms don't improve or continue to get worse. When to contact your doctor Contact your health care provider right away if you have: ?? A fever 100.4?? (38??C) or higher, or as advised by your provider. ?? Brownish, bloody, or smelly sputum (phlegm that you cough up). Call 911 Call 911 if any of these occur: ?? Shortness of breath that doesn't get better after taking your medicine ?? Cool, moist, pale, or blue skin ?? Trouble breathing or swallowing, wheezing ?? Fainting or loss of consciousness ?? Feeling of dizziness or weakness, or a sudden drop in blood pressure ?? Feeling very ill ?? Lightheadedness ?? Chest pain or rapid heart rate Last Reviewed Date: 2024 00:00:00 ?? [id number] [employer]. All rights reserved. This information is not intended as a substitute for professional medical care. Always follow your healthcare professional's instructions. * [facility] Familia Benite[facility] - 03/15/2025 7:49 AM EDT Images from the original note were not included. [id number] Preventing Deep Vein Thrombosis After Surgery In the days and weeks after surgery, you have a higher chance of developing a deep vein thrombosis (DVT). This is a condition in which a blood clot (thrombus) forms in a deep vein. They are most common in the leg. But a DVT may form in an arm or another deep vein in the body. A piece of the clot, called an embolus, can separate from the thrombus and travel to the lungs. A blood clot in the lungs is called a pulmonary embolus (PE). This can cut off the flow of blood to part or all of the lungs. It's a medical emergency and may cause . Doctors use the term venous thromboembolism (VTE) to describe both DVT and PE. They use the term VTE because the two conditions are very closely related and their prevention and treatment are similar. Prevention in the hospital or other facility Your doctor will usually prescribe one or more of the following to prevent blood clots: ?? Blood-thinner (anticoagulant). This medicine prevents blood clots. You take it by mouth, by injection, or through an I.V. (intravenous). Commonly used anticoagulants include warfarin and heparin. Newer anticoagulants may also be used, including rivaroxaban, apixaban, dabigatran, and enoxaparin. Sometimes the doctor may not give you an anticoagulant medicine. It's important that they discuss the risks and benefits with you. ?? Compression stockings. These elastic stockings fit tightly around your legs. They help keep blood flowing toward your heart by the pressure they apply. They prevent blood from pooling and forming blood clots. When you first put them on, the stockings may be uncomfortable. But after a while, you should get used to them. ?? Exercises. Simple exercises while you are resting in bed or sitting in a chair can help prevent blood clots. Move your feet in a salamatof or up and down. Do this 10 times an hour to improve circulation. ?? Getting out of bed and walking (ambulation). After surgery, a nurse will help you out of bed as soon as you are able. Moving around improves circulation and helps prevent blood clots. ?? Sequential compression device (SCD) or intermittent pneumatic compression (IPC). Plastic sleevesare wrapped around your legs and connected to a pump that inflates and deflates the sleeves. This applies gentle pressure to promote blood flow in the legs and prevent blood clots. These should be worn when you lie in bed or sit in a chair. Prevention at home Ankle exercises can help keep blood flowing in the veins. Deep vein thrombosis can happen even after you go home. Follow all instructions from your doctor. The following are some general guidelines about DVT prevention: ?? Blood-thinner medicine. If a blood thinner was prescribed, make sure you follow all directions about taking it. Be sure you know what foods and medicines may interact. And ask your doctor what to do if you forget to take a dose. ?? Compression stockings. Your doctor will tell you how often to wear and remove the stockings. Follow all instructions closely. Each time you remove your stockings, check your legs and feet for red areas or sores. If you see any changes, call your doctor right away. ?? Returning to activity. Follow all instructions about returning to activities. Be as active as you can. This improves blood flow and helps prevent a clot from forming. When in bed or in a chair, continue with the ankle exercises you did in the hospital. ?? Sequential compression device (SCD) or intermittent pneumatic compression (IPC). In some cases, this device may be recommended at home. If you are using this device at home, make sure you closely follow all instructions from your doctor. You will be instructed on how often and for how long to use the device. Remove the sleeves if you are up and walking. When to call your doctor You may have symptoms of a blood clot. Or you may have signs of bleeding from medicines to prevent clots. Contact your doctor right away if you have: ?? Pain, swelling, or redness in the leg, arm, or other area. ?? Blood in your urine or stool. ?? Very dark or tar-like stool. ?? Vomiting with blood. ?? Bleeding from the nose. ?? Bleeding from the gums. ?? A cut that won't stop bleeding. ?? Bleeding from the vagina. Call 911 Call 911 if you have: ?? Chest pain. ?? Shortness of breath. ?? A fast heartbeat. ?? Excessive sweating. ?? Fainting. ?? Coughing (may cough up blood). ?? Heavy or uncontrolled bleeding. Last Reviewed Date: 2025 00:00:00 ?? [id number] [employer]. All rights reserved. This information is not intended as a substitute for professional medical care. Always follow your healthcare professional's instructions. * [facility] - Familia Benitez RN - 03/15/2025 7:49 AM EDT Images from the original note were not included. 47415 Preventing a Surgical Site Infection A risk of any surgery is an infection at the surgical site. The surgical site is a cut the surgeon makes in the skin to do the surgery. Surgical site infections can range in type. It may be a minor skin infection. Or it may be severe and include tissue under the skin or other organs. In some cases,a severe infection can cause . The information below tells you: ?? About surgical site infections. ?? What hospitals do to prevent them. ?? How they?re treated if they do occur. ?? What you can do to prevent an infection. Hand washing reduces the risk of infection. What causes a surgical site infection? Germs are everywhere. They?re on your skin, in the air, and on things you touch. Many germs are good. Some are harmful. Surgical site infections occur when harmful germs enter your body through the incision in your skin. Some infections are caused by germs that are in the air or on objects. But most are caused by germs found on and in your own body. Who is at risk for a surgical site infection? Anyone can have a surgical site infection. Your risk is higher if you: ?? Are an older adult. ?? Have a weak immune system. ?? Have other health conditions such as diabetes. ?? Take certain medicines, such as steroids. ?? Are a smoker. ?? Have certain types of surgery, such as abdominal surgery. ?? Have poor nutrition. ?? Are very overweight. ?? Have a surgery that lasts longer than 2 hours. What are the symptoms of a surgical site infection? An infection often shows up as skin redness, pain, and swelling around the incision that gets worse. Later, a cloudy or greenish-yellow fluid may come from the incision. The fluid may smell bad. The incision may pull apart or open up. You are likely to have a fever and may feel very ill. Symptoms can appear at any time. They may happen from hours to weeks after surgery. Implants such as an artificial knee or hip can become infected at any time after the surgery. How is a surgical site infection treated? ?? A surgical site infection is treated with antibiotics. The type of medicine you get will depend on what may be causing the infection. Most serious wound infections need wound care. In some cases, surgery may be needed on the infected wound. ?? An infected skin wound may be reopened and cleaned. A deep wound may need to be packed with gauze. The gauze is changed often until the wound starts to heal from the inside out. Your health care provider will decide the best way to treat your infection. ?? If an infection occurs where an implant is placed, the implant may be removed. ?? If you have an infection deeper in your body, you may need surgery to treat it. What hospitals do to prevent surgical site infections Many hospitals take these steps to help prevent surgical site infections: ?? Handwashing. Before the surgery, your surgeon and all surgery staff scrub their hands and arms with an antiseptic soap. ?? Clean skin. The site where your incision is made is carefully cleaned with an antiseptic solution. ?? Sterile clothing and drapes. The surgical team wears medical uniforms. These are known as scrub suits. They wear long-sleeved surgical gowns, masks, caps, shoe covers, and sterile gloves. Your body is fully covered with a large sterile sheet (sterile drape). There is an opening in the sheet where the incision is made. ?? Clean air. Operating rooms have special air filters. They use positive pressure airflow to prevent unfiltered air from entering the room. ?? Careful use of antibiotics. Antibiotics are given no more than 60 minutes before the incision ismade. They are generally stopped within 24 hours after surgery. This depends on the type of surgery. This helps kill germs but prevents problems that can occur when antibiotics are taken longer. ?? Controlled blood sugar levels. Your blood sugar level may rise. This can be because of the stress of the surgery. Your blood sugar level is watched closely to make sure it stays within a normal range. High blood sugar delays wound healing. This increases the risk of infection. ?? Controlled body temperature. A hxwsr-etgs-ftyzfs temperature during or after surgery prevents oxygen from reaching the wound. This makes it harder for your body to fight infection. Hospitals may warm I.V. fluids, and provide warm-air blankets. Your temperature is watched throughout the surgery. ?? Safe hair removal. Any hair that must be removed is clipped right before the incision, not shaved with a razor. This prevents tiny nicks and cuts where germs can enter. ?? Wound care. After surgery, a closed wound is covered with a sterile dressing for 1 to 2 days. Open wounds are packed with sterile gauze and covered with a sterile dressing. What you can do to prevent a surgical site infection ?? Ask questions. Learn what your hospital is doing to prevent infection. ?? If instructed, shower or bathe with plain soap the night before and the day of your surgery. Follow all instructions you're given. You may be asked to use a special cleanser that you don?t rinse off. ?? If you smoke, stop as long as possible before and after the surgery. Ask your provider about ways to quit. ?? Take antibiotics only when your provider tells you to. Using antibiotics when they?re not neededcan create germs that are harder to kill. Finish the entire prescription of your antibiotics even if you feel better. ?? Ask health care workers to clean their hands with plain soap and water or with an alcohol-based hand disease intervention specialist before and after caring for you. Don?t be afraid to remind them. ?? After surgery, eat healthy foods. Care for your incision as directed by your health care team. When to contact your doctor Contact your provider or seek medical care right away if: ?? The pain at the surgical site gets worse. ?? A red streak, worse redness, or puffiness appears near the incision. ?? Yellowish, cloudy, or bad-smelling fluid leaks from the incision. ?? Your stitches dissolve before the wound heals. ?? You have a fever of 100.4?? F ( 38??C ) or higher, or as advised by your provider. ?? You have a tired feeling that doesn?t go away. Last Reviewed Date: 2024 00:00:00 ?? [id number] [employer]. All rights reserved. This information is not intended as a substitute for professional medical care. Always follow your healthcare professional's instructions. * [facility] - Familia Benitez RN - 03/15/2025 7:49 AM EDT Images from the original note were not included. 223 After Total Hip Replacement After your hip replacement, you will need to follow these instructions to avoid complications. Follow these instructions from the time you go home until your doctor says you can stop. Incision care ?? If your incision has sutures or roya, do not shower until after you return to the clinic. ?? If your incision is closed with liquid skin adhesive, you may shower 24 hours after all drainagestops. ?? If your incision is covered with a waterproof dressing, you may shower when you feel comfortable. Remove this dressing after 10 days. ?? Sit on a shower chair or tub bench when you shower to keep from falling. Carefully wash around your incision with soap and water. Rinse the incision well. Then gently pat it dry. ?? Do not rub the incision or apply creams or lotions. ?? If your incision is not draining, you do not need a dressing over it. You may cover your incision with a light, dry bandage if you want. ?? Check your incision daily for redness, swelling, tenderness or drainage. Hip precautions ?? Most patients will not need to follow hip precautions, but you may be asked to avoid certain positions and movements for 8 weeks after surgery. We will teach you how to follow hip precautions, if needed. ?? If needed, the hip precautions after posterior hip replacement are: o Do not bend your hip past 90 degrees. o Do not cross your legs past midline. o Do not turn your surgery foot or leg inward. ?? If needed, the hip precautions after anterior hop replacement are: o Do not force your leg to extend backwards. You should be able to walk as normal with a cane. o Do not turn your surgery foot or let outwards. Activity and exercise ?? Follow your doctor?s orders for how much weight to put on the operated leg. ?? Follow hip precautions for eight weeks after surgery, if needed. ?? Walk often. Do the exercise physical therapy taught you three times a day. ?? Slowly increase your activity each day. ?? Walk up and down stairs with support. Use the railing if possible. Try one step at a time - goodhip up, bad hip down. ?? Use a cane, crutches, a walker or handrails until your balance, flexibility and strength improve. And remember to ask for help from others when you need it. ?? Do not engage in any jarring sports or activities until your doctor says it is OK. Examples are jogging, tennis and basketball. Sitting and lying down ?? Raise your legs when sitting. ?? Sit in chairs with arms. The arms make it easier for you to stand up or sit down. ?? Do not sit for more than 30 to 45 minutes at a time. ?? Nap if you are tired, but don?t stay in bed all day. ?? Ask your surgeon if it is OK to sleep on the side that has the new hip. Use pillows between yourlegs if sleeping on your side. Be sure to change the position of your leg during the night. Bathroom safety ?? Use nonslip bath mats, grab bars and a shower chair or tub bench in your bathroom. Riding and driving ?? Sit on a firm cushion when you ride in a car. Avoid sitting too low. ?? Don?t drive while you are taking narcotic pain medication. ?? Don?t drive until your doctor says it is OK. Most people can start driving about 2 to 4 weeks after surgery. Managing pain ?? You should expect to have some pain as you heal. This pain may last weeks or months. ?? Take pain medicine as directed. Do not skip or add doses. ?? Take them at least 20 minutes before doing activities. Take them 30 to 60 minutes before exercise or physical therapy. ?? Do not take other pain medicines unless your doctor approves. This includes nwwx-ibn-isygitr medicines like aspirin, ibuprofen and Tylenol. ?? As you heal, you will need less pain medicine. Try taking 1 pill instead of 2. Or take them 2 times a day instead of 3 times a day. ?? Raise your leg. Rest your leg on pillows when you are in bed or in a chair. ?? Get up and move. This may help relieve discomfort at night. ?? You can also listen to music, relax, distract your mind or reposition your leg. Preventing infection ?? Avoid infection by washing your hands often. ?? Call your surgeon right away if you think you have an infection in your operated hip. Signs include a fever, redness, increased pain, or an incision that leaks white, green or yellow fluid. ?? Avoid soaking your incision in water (no hot tubs, bathtubs, swimming pools) until your doctor says it?s ok. ?? Wait 3 weeks after your surgery to shave your legs. ?? Wait 3 weeks after your surgery to get a flu or pneumonia vaccine. ?? Wait 2 months after your surgery for any routine dental appointments. When scheduling an appointment, be sure to tell your dentist that you?ve had a hip replacement. Your dentist may prescribe antibiotics for dental procedures. ?? Call your family doctor right away if you think you might have an infection elsewhere. Preventing blood clots ?? Take blood-thinning medicine as directed to prevent blood clots. ?? The nursing staff will teach you how to give the enoxaparin injection, if needed.. ?? Do not miss doses of blood-thinning medicine. ?? Use caution when taking long car trips or traveling by airplane for the first 6 weeks after surgery. If you must take a long car trip, stop every hour and walk for 10-15 minutes. Your doctor may recommend a blood thinner if you are flying within 6 weeks of surgery. Diet ?? It is normal to have a decreased appetite after surgery. Drink a nutritional supplement such as Boost or [place] Instant Breakfast until your appetite returns to normal. ?? Maintain a healthy weight. Added body weight puts stress on the hip. Get help to lose any extra pounds. Preventing constipation ?? Narcotic pain medicines can cause constipation. ?? Take stool softener as prescribed. ?? Drink plenty of fluids, especially water. ?? Increase fiber in your diet. Fruits, vegetables, beans, nuts and whole grains have fiber in them. ?? Call your doctor if your bowels do not move in the next few days after surgery. Sleep ?? Some patients have a hard time sleeping after surgery. If you have problems sleeping, take gvbf-zpk-ktgexqp diphenhydramine (Benadryl) or melatonin. ?? If you still have problems sleeping, call the clinic. You may need a prescription for a sleep aid. Follow-up care ?? Your orthopaedic surgeon will schedule follow-up exams to make sure that your hip is healing correctly. Use this time to ask any questions you have about your recovery or activities. ?? If you need a prescription refill before your next appointment, call [phone]. Call 3 business days before you run out of medicine. ?? To check joint stability over time, you may have X-rays every five years. When should I call the doctor? Call [phone] right away if you have any of the following ?? Chest pain ?? Shortness of breath or trouble breathing Call Your doctor if you have any of the following ?? An increase in hip pain ?? Pain or swelling in a calf or leg ?? Unusual redness, heat, or drainage at the incision site ?? Fever of 101.5??F or higher or shaking chills. ?? Increased swelling in your leg. ?? Loss of control over leg motion * Progress Notes - Owen Cottrell MD - 03/15/2025 6:37 AM EDT [facility]--Orthopaedic Reconstruction Team--Progress Note: Date: 03/15/25 Subjective: s/p L DAVID (03/14) POD#1 Denies n/v, fever, chills, night sweats, CP, or SOB. NAD Pain Well controlled Tolerating PO well Urinating: Positive Flatus: Positive BM: Negative Objective: Visit Vitals BP 120/71 (BP Location: Right arm, Patient Position: Lying) Pulse 58 Temp 36.4 ??C (97.6 ??F) (Oral) Resp 16 Ht 1.727 m (5' 8 ) Wt 77.6 kg (171 lb 1.2 oz) SpO2 94% BMI 26.01 kg/m?? Smoking Status Former BSA 1.93 m?? Physical exam: General: NAD, responsive to all questions, oriented Resp: nonlabored Musculoskeletal Exam: Left LE--Focus on Hip: Anterior Tegaderm dressing, c/d/i TTP over hip Contractility of EHL/TA, FHL/GSC SILT to DP, SP, Sural, Saphenous, and Tibial nn. DP and PT pulses 2+ palpable, Cap refill <2sec Assessment: Devon Joyner is a 79 y.o. male presents with: S/p L DAVID (03/14) Plan: Mobility Orders Mobility Protocol: General - Mobility Guidelines Extremity Precautions: No Extremity Precautions Other mobility precautions: No other precautions required PT/OT rec: HWA Abx: DC on Duricef DVT ppx: ASA Pain control Bowel regimen Follow up: Irene DYE, Orthopaedic Surgery Recon 03/29/2025 Disposition: DC home today after PTOT Owen Cottrell MD Orthopedic Surgery PGY-2 [facility] Personal Pager: [phone] Orthopaedic Trauma Service Pager: [phone] Orthopaedic Recon/Spine/Foot and Ankle Service Pager: [phone] Cosigned by Raymond Mclean MD at 03/15/2025 8:14 AM EDT Associated attestation - Raymond Mclean MD - 03/15/2025 8:14 AM EDT I saw and evaluated the patient with the resident/fellow. I discussed the case with the resident/fellow and agree with the findings and plan as documented. * Care Plan - Oksana Epps RN - 03/15/2025 2:27 AM EDT Problem: Adult Inpatient Plan of Care Goal: Plan of Care Review 03/15/2025226 by Oksana Epps RN Outcome: Ongoing, Progressing 03/15/2025222 by Oksana Epps RN Flowsheets (Taken 03/15/2025222) Plan of Care Reviewed With: patient spouse Goal: Patient-Specific Goal (Individualized) 03/15/2025226 by Oksana Epps RN Outcome: Ongoing, Progressing 03/15/2025222 by Oksana Epps RN Flowsheets (Taken 03/15/2025222) Patient/Family-Specific Goals (Include Timeframe): pt will report pain at goal or below and pt willbe free from falls by discharge day Individualized Care Needs: pain will be assessed every 4 hrs and prn, pt will be ambulated with staff at all times Anxieties, Fears or Concerns: pain, safety Goal: Absence of Hospital-Acquired Illness or Injury Outcome: Ongoing, Progressing Intervention: Identify and Manage Fall Risk Flowsheets (Taken 03/15/2025222) Safety Promotion/Fall Prevention: activity supervised assistive device/personal items within reach clutter-free environment maintained fall prevention program maintained lighting adjusted mobility aid in reach nonskid shoes/slippers when out of bed room organization consistent safety round/check completed Intervention: Prevent Skin Injury Flowsheets (Taken 03/15/2025222) Body Position: supine Intervention: Prevent and Manage VTE (Venous Thromboembolism) Risk Flowsheets (Taken 03/15/2025222) VTE Prevention/Management: SCDs (sequential compression devices) on Intervention: Prevent Infection Flowsheets (Taken 03/15/2025222) Infection Prevention: hand hygiene promoted Goal: Optimal Comfort and Wellbeing Outcome: Ongoing, Progressing Intervention: Monitor Pain and Promote Comfort Flowsheets (Taken 03/14/20252232) Pain Management Interventions: medication (see MAR) Intervention: Provide Person-Centered Care Flowsheets (Taken 03/15/2025222) Trust Relationship/Rapport: care explained questions answered Goal: Readiness for Transition of Care Outcome: Ongoing, Progressing Intervention: Mutually Develop Transition Plan Flowsheets (Taken 03/15/2025222) Readmission Within the Last 30 Days: no previous admission in last 30 days Problem: Skin Injury Risk Increased Goal: Skin Health and Integrity Outcome: Ongoing, Progressing Intervention: Optimize Skin Protection Flowsheets (Taken 03/15/2025222) Activity Management: activity adjusted per tolerance Intervention: Promote and Optimize Oral Intake Flowsheets (Taken 03/15/2025222) Nutrition Interventions: food preferences provided Problem: Hip Arthroplasty Goal: Optimal Coping Outcome: Ongoing, Progressing Intervention: Support Psychosocial Response to Surgery and Mobility Changes Flowsheets (Taken 03/15/2025222) Supportive Measures: active listening utilized Goal: Absence of Bleeding Outcome: Ongoing, Progressing Intervention: Monitor and Manage Bleeding Flowsheets (Taken 03/15/2025222) Bleeding Management: dressing monitored Goal: Effective Bowel Elimination Outcome: Ongoing, Progressing Intervention: Enhance Bowel Motility and Elimination Flowsheets (Taken 03/15/2025222) Bowel Elimination Management: hygiene measures promoted Goal: Fluid and Electrolyte Balance Outcome: Ongoing, Progressing Intervention: Monitor and Manage Fluid and Electrolyte Balance Flowsheets (Taken 03/15/2025222) Fluid/Electrolyte Management: fluids provided Goal: Optimal Functional Ability Outcome: Ongoing, Progressing Intervention: Promote Optimal Functional Status Flowsheets (Taken 03/15/2025222) Activity Management: activity adjusted per tolerance Goal: Absence of Infection Signs and Symptoms Outcome: Ongoing, Progressing Intervention: Prevent or Manage Infection Flowsheets (Taken 03/15/2025222) Fever Reduction/Comfort Measures: lightweight clothing lightweight bedding Goal: Intact Neurovascular Status Outcome: Ongoing, Progressing Intervention: Prevent or Manage Neurovascular Compromise Flowsheets (Taken 03/15/2025222) Compartment Syndrome Management: active flexion/extension encouraged Goal: Optimal Pain Control and Function Outcome: Ongoing, Progressing Intervention: Prevent or Manage Pain Flowsheets (Taken 03/15/2025222) Diversional Activities: television Goal: Nausea and Vomiting Relief Outcome: Ongoing, Progressing Intervention: Prevent or Manage Nausea and Vomiting Flowsheets (Taken 03/15/2025222) Nausea/Vomiting Interventions: sips of clear liquids given Goal: Effective Urinary Elimination Outcome: Ongoing, Progressing Intervention: Monitor and Manage Urinary Retention Flowsheets (Taken 03/15/2025222) Urinary Elimination Promotion: absorbent pad/diaper use encouraged Goal: Effective Oxygenation and Ventilation Outcome: Ongoing, Progressing Intervention: Optimize Oxygenation and Ventilation Flowsheets (Taken 03/15/2025222) Activity Management: activity adjusted per tolerance * Progress Notes - Trinity Werner - 03/14/2025 2:25 PM EDT Physical Therapy Evaluation Patient Name: Devon Joyner Today's Date: 03/14/2025 PT Discharge Recommendations: Home with assistance, Outpatient PT, Outpatient OT (Assist of ) Equipment Recommended: Patient owns appropriate equipment History Devon Joyner is 79 y.o. male admitted 03/14/2025 for work-up of Arthritis of left hip. Problem List Active Hospital Problems Diagnosis Date Noted Arthritis of left hip 02/03/2025 Procedures 03/14/2025 Procedure(s): ARTHROPLASTY, HIP, TOTAL, ANTERIOR APPROACH Past Medical History Patient has a past medical history of Adverse effect of anesthesia, HLD (hyperlipidemia), HTN (hypertension), Hypothyroid, Mild cognitive impairment, and TEO on CPAP. Past Surgical History Patient has a past surgical history that includes Hand surgery (Left); Inguinal Hernia Repair (Right); and Colonoscopy. Precautions Left Lower Extremity Weight Bearing Status: Weight Bearing as Tolerated Right Lower Extremity Weight Bearing Status: Weight Bearing as Tolerated Left Upper Extremity Weight Bearing Status : Weight bearing as tolerated Right Upper Extremity Weight Bearing Status : Weight bearing as tolerated Medical Precautions: Fall precautions Subjective I feel angelo (patient rated pain as 2-3/10) Participants in Care Family/Caregiver Present: Yes Family/Caregiver: Spouse Strip Roller: Not Applicable Presentation Oxygen Therapy: None (Room air) Lines and Tubes: Intravenous access Pre-Session: Supine, Head of bed elevated, Lines intact, Bed alarm Pre-Session Comments: Nurse and patient agreeable to session Post-Session: Sitting in chair, Call light in reach, SCDs applied, RN notified, Lines intact, Chairalarm Post-Session Comments: All needs met. Peripheral IV 03/14/25 Anterior;Right Forearm (Active) Home Living/Set-up Lives With: Spouse Home Type: House Home Adaptive Equipment: Rolling walker, shower chair Home Layout: One level, Able to live on one level with bedroom/bathroom, Stairs to enter without rails Number of Stairs: 1 Bathroom: Tub/Shower: Walk-in shower Bathroom: Toilet: Elevated toilet seat with arms Bathroom: Accessibility: Accessible Prior Level of Function Receives Help From: Spouse (No Assist required Except for donning socks (slip on shoes)) Level of Mobility: Ambulatory- community Mobility [place] [employer] Base: Independent gait without device History of Falls: Yes (Last one 3 weeks ago on a hunting trip -ETOH involved) ADL Performance: Needs assistance Bathing: Independent Upper Body Dressing: Independent Lower Body Dressing: Needs assist Grooming: Independent Toileting: Independent Eating: Independent Home Management Skills: Needs assist Patient/Family Goals To get better and get home Objective Pain Rated 2-3 out of 10 at beginning of session and 4/10 at end of session. Delirium Screening [place] Agitation Sedation Scale (RASS): Alert and calm Confusion Assessment Method-ICU (CAM-ICU/PCAM-ICU) Feature 3: Altered Level of Consciousness: Negative Cognition Overall Cognitive Status: Within Functional Limits Arousal/Alertness: Appropriate responses to stimuli Mood/Behavior: Alert Orientation Level: Oriented X4 Single Step Commands: Consistently Multi-Step Commands: Consistently Method of Communication: Verbal Right Upper Extremity Examination RUE Assessment: Within Functional Limits Manual Muscle Testing - RUE: Within functional limits Left Upper Extremity Examination LUE ROM Assessment LUE Assessment: Within Functional Limits Manual Muscle Testing - LUE Manual Muscle Testing - LUE: Within functional limits Right Lower Extremity Examination RLE ROM Assessment RLE Assessment: Within Functional Limits Manual Muscle Testing - RLE Manual Muscle Testing - RLE: Within functional limits Left Lower Extremity Examination LLE Assessment: Exceptions to WFL (Unable to assess due to recent surgery) Manual Muscle Testing: Within functional limits except (Unable to assess due to recent surgery) Therapeutic Activity Pt performed transitional skills and standing activity to promote functional mobility and progress activity tolerance. Patient participating in therapeutic activities as described in detail in sections below. Bed Mobility Bed Mobility Exam: Rolling/Turning Level of [place] [employer] Base: Contact guard Physical/Nonphysical Assist: Supervision, Verbal Cues, Minimal cues Assistive Device: Bed rails Bed Mobility Exam: Scooting/Bridging Level of [place] [employer] Base: Contact guard Physical/Nonphysical Assist: Set-up required, Supervision, Verbal Cues, Minimal cues Assistive Device: Bed rails Bed Mobility Exam: Supine to Sit Level of [place] [employer]: Minimum assist (75% patient's effort) (needs time and assist with L LE's) Physical/Nonphysical Assist: Set-up required, Supervision, Verbal Cues, Minimal cues Assistive Device: Bed rails Transfers Transfer Exam: Sit to stand Level of [place] [employer] Base: Contact guard (Needs time) Physical/Nonphysical Assist: Supervision, Verbal Cues, Minimal cues, Additional assist utilized forsafety Assistive Device: Walker, rolling Transfer Exam: Stand to Sit Level of [place] [employer] Base: Minimum assist (75% patient's effort) Physical/Nonphysical Assist: Supervision, Verbal Cues, Moderate cues, Additional assist utilized for safety Assistive Device: Walker, rolling Balance Postural Appearance Posture: Forward head, Rounded shoulders Static Sitting Balance Static Sitting-Balance Support: No upper extremity support, Feet supported Static Sitting-Level of Assistance: Standby assist Dynamic Sitting Balance Dynamic Sitting-Balance Support: Feet supported Dynamic Sitting-Balance: Anterior/Posterior weight shifts, Lateral weight shifts Level of Assistance: Contact guard Static Standing Balance Static Standing-Balance Support: Left upper extremity support, Right upper extremity support Static Standing-Level of Assistance: Contact guard Dynamic Standing Balance Dynamic Standing-Balance Support: Right upper extremity support, Left upper extremity support Dynamic Standing-Balance: Lateral weight shifts, Anterior/Posterior weight shifts Dynamic Standing Level of Assistance: Contact guard Gait Training (10 minutes) Device: Rolling walker Apparatus: None Assistance: Contact guard assist Distance: 25 feet on level surface Gait Analysis: 2-3 pain prior to activity that changed to 4/10 with interventions. Forward leaning posture and trouble sequencing gait with walker. Gait Training Interventions: Tactile cues to thoracic spine and gluts for straighter posture as well as verbal cues for posture. Verbal cues and demonstration for sequencing correctly with surgical LE and walker. Therapeutic Exercise (6 minutes) Patient was taught isometric exercises this date: quad sets and glut sets. Also taught ankle pumps.Advised to do once/hour 10-20 reps while awake. patient and understood. Standardized Assessments Standardized Assessments Standardized Assessments: [facility] 6-Clicks Mobility Assessment [facility] 6-Clicks Mobility Assessment Difficulty patient has turning over in bed (including adjusting bedclothes, sheets, and blankets)?:A little Difficulty patient has sitting down on and standing up from a chair with arms (wheelchair, bedside commode, etc.)?: A little Difficulty patient has moving from lying on back to sitting on the side of the bed?: A little How much help does the patient need moving to and from a bed to a chair (including a wheelchair)?: A little How much help does the patient need to walk in hospital room?: A little How much help does the patient need climbing 3-5 steps with a railing?: A lot [facility] 6-Clicks Mobility Assessment Total : 17 Assessment Patient had some difficulty with using walker, but did improve with practice and cues. He should progress well toward goals. Patient tolerated treatment without adverse events today, required skilledintervention to guide appropriate performance of activities with cuing, demos and feedback providedas needed. Skilled time required for line/tube management and room setup to promote safe environment for treatment. Pt and spouse neducated on interventions, relation to condition, and relevance to improving function and achieving goals. Will benefit from continued skilled inpatient PT services. Impairments: Impaired functional mobility/transfers, Impaired gait dynamics/performance, Decreased range of motion, Decreased strength, Pain Activity Limitations: Inability to sit independently, Inability to ambulate independently, Inability to ambulate community distances, Inability to complete ADLs independently, Inability to transfer independently, Inability to ambulate household distances Participation Restrictions: Self-care, Home management Activity Tolerance: Tolerates 30 min activity with multiple rests Evaluation/Treatment Tolerance: Patient limited by fatigue Diagnosis: Impaired functional activity Rehab Potential: Good, to achieve stated therapy goals Barriers to Discharge: (No barriers to discharge) Eval Complexity History Profile: 1 - 2 personal factors and/or comorbidities Clinical Presentation: Evolving clinical presentation with changing characteristics Clinical Decision Making: Moderate complexity PT Recommendations Discharge Destination: Home with assistance, Outpatient PT, Outpatient OT (Assist of ) Discharge Equipment: Patient owns appropriate equipment Plan Planned PT Interventions Balance training, Bed mobility training, Gait training, Transfer training, Strengthening, Functional Mobility, ROM PT Frequency Twice daily PT Duration 2 weeks Goals PT GOAL DETAILS Time Frame PT Goal 1: Patient will be independent with bed mobility to progress with transfers. 2 weeks PT Goal 2: Patient will be modified independent with sit<>stand transfer with LRAD to progress with gait activities. 2 weeks PT Goal 3: Patient will walk 100 feet on level surface with LRAD and SBA to be able to go home withwife. 2 weeks PT Goal 4: Patient will be able to walk up and down 1 step with LRAD and CGA to be able to get intohis house. 2 weeks PT Goal 5: Patient and will be indepedent with HEP designed to address strenth and mobility tocontinue to progress after discharge. 2 weeks Written by Trinity Werner on 03/14/25 at 2:25 PM. * Consults - Sade Carlson PA - 03/14/2025 1:33 PM EDTAssociated Order(s): Inpatient consult to Vianey Young Inpatient consult to Vianey Young Consult performed by: Sade Carlson PA Consult ordered by: Veena Finnegan APRN Reason For Consult: medical co-management Requested Service: ortho reconstruction Requested Date/Time: 03/14/2025 0856 HISTORY: History Of Present Illness/Chief Complaint: Devon Joyner is a 79 y.o. 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 Medicine is consulted for medical co-management, evaluated post-op in PACU where he is alert and currently denies pain. He notes taking home antihypertensives except losartan and hydrochlorothiazide prior to arrival. Endorses ~ 15lb weight loss since Aug 2024 with dietary changes. Mobilizes independently at baseline with reported fall off his porch 11/2024 while turkey hunting sustaining bruising but no reported fracture or head trauma. Utilizes CPAP nightly which he brought with him. Review of Systems Review of Systems Constitutional: Negative for chills, fever and unexpected weight change. HENT: Positive for hearing loss (chronic; has hearing aids but does not wear them). Eyes: Negative. Respiratory: Negative for cough and shortness of breath. Cardiovascular: Positive for leg swelling. Negative for chest pain and palpitations. Gastrointestinal: Negative for constipation. Endocrine: Negative. Genitourinary: Negative for difficulty urinating. Musculoskeletal: Positive for arthralgias and gait problem. Skin: Negative. Allergic/Immunologic: Negative. Neurological: Negative for dizziness, light-headedness and numbness. Hematological: Negative. Psychiatric/Behavioral: Negative. 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 Per previous cardiology records from 2022, patient wore a heart monitor 09/2022 that showed PSVT, PAT but despite computer reading of atrial fib none was confirmed on rhythm strips. On Eliqius at that time with history of bleeding hemorrhoids. Per most recent cardiology note 02/01/25, he remained in sinus rhythm and patient preferred ASA only. 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 celecoxib (CELEBREX) 100 mg, Oral, Daily cetirizine (ZYRTEC) 10 mg, Daily gabapentin (NEURONTIN) 100 mg, Oral, 3 times daily, If this medication makes you drowsy you may take it only at bedtime hydroCHLOROthiazide (MICROZIDE) 12.5 mg, Every morning HYDROcodone-acetaminophen ([place]) 5-325 MG tablet 5 mg of hydrocodone, Oral, Every 6 hours PRN levothyroxine (SYNTHROID, LEVOXYL) 100 mcg, Daily losartan (Cozaar) 100 MG tablet Take 1 tablet by mouth daily. Multiple Vitamin (MULTIVITAMIN PO) 1 tablet, Daily Namzaric 28-10 MG capsule sustained-release 24 hr Take 1 tablet by mouth daily. nebivolol (BYSTOLIC) 5 mg, Daily NIFEdipine CC (ADALAT CC) 30 mg, Daily before breakfast rosuvastatin (CRESTOR) 40 mg, Daily tadalafil (CIALIS) 10 mg, Daily testosterone (Androgel) 50 MG/5GM (1%) gel 1 packet, Daily traMADol (ULTRAM) 50-100 mg, Oral, Every 6 hours PRN traMADol (ULTRAM) 50 mg, Oral, Every 4 hours PRN Inpatient Medications: Scheduled: acetaminophen, 1,000 mg, Oral, q8h ROSE [START ON 03/15/2025] aspirin, 81 mg, Oral, BID calcium-vitamin D, 1 tablet, Oral, BID with meals ceFAZolin, 2 g, Intravenous, q8h [START ON 03/15/2025] cetirizine, 10 mg, Oral, Daily gabapentin, 100 mg, Oral, q8h [START ON 03/15/2025] levothyroxine, 100 mcg, Oral, q AM [START ON 03/15/2025] nebivolol, 5 mg, Oral, Daily [START ON 03/15/2025] NIFEdipine XL, 30 mg, Oral, Daily pantoprazole, 40 mg, Oral, Daily before breakfast [START ON 03/15/2025] polyethylene glycol, 17 g, Oral, Daily with breakfast [START ON 03/15/2025] rosuvastatin, 40 mg, Oral, Daily senna-docusate, 2 tablet, Oral, Nightly traMADol, 100 mg, Oral, q8h ROSE [START ON 03/15/2025] tranexamic acid, 650 mg, Oral, TID Continuous: lactated Ringer's, 50 mL/hr, Last Rate: 50 mL/hr (03/14/25 1044) As needed: bethanechol, 20 mg, Once PRN bisacodyl, 10 mg, BID PRN diphenhydrAMINE, 12.5 mg, q4h PRN HYDROmorphone, 0.5 mg, q6h PRN magnesium hydroxide, 30 mL, BID PRN ondansetron, 4 mg, q6h PRN oxyCODONE, 5 mg, q4h PRN traMADol, 50 mg, q12h PRN EXAM: Last Recorded Vitals Vitals: 03/14/25 1020 03/14/25 1025 03/14/25 1039 03/14/25 1042 BP: 137/71 BP Location: Right arm Patient Position: Lying Pulse: 72 61 Resp: 21 16 Temp: 36.3 ??C (97.4 ??F) TempSrc: Oral SpO2: 93% 94% 94% 94% Weight: Height: Intake/Output Summary (Last 24 hours) at 03/14/2025 1333 Last data filed at 03/14/2025 0901 Gross per 24 hour Intake 1450 ml Output 300 ml Net 1150 ml Admission weight: Weight: 77.6 kg (171 lb 1.2 oz) Physical Exam Vitals and nursing note reviewed. Constitutional: General: He is awake. He is not in acute distress. Appearance: Normal appearance. HENT: Head: Normocephalic and atraumatic. Right Ear: Decreased hearing noted. Left Ear: Decreased hearing noted. Mouth/Throat: Mouth: Mucous membranes are dry. Eyes: Conjunctiva/sclera: Conjunctivae normal. Pupils: Pupils are equal, round, and reactive to light. Cardiovascular: Rate and Rhythm: Normal rate and regular rhythm. Pulses: Normal pulses. Heart sounds: Normal heart sounds. No murmur heard. No friction rub. No gallop. Pulmonary: Effort: Pulmonary effort is normal. Breath sounds: Normal breath sounds. No wheezing or rhonchi. Comments: On room air Abdominal: General: There is no distension. Palpations: Abdomen is soft. Tenderness: There is no abdominal tenderness. Musculoskeletal: General: Swelling (minimal left ant hip) present. Right lower leg: No edema. Left lower leg: No edema. 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 Capillary Refill: Capillary refill takes less than 2 seconds. Neurological: General: No focal deficit present. Mental Status: He is alert and oriented to person, place, and time. Psychiatric: Mood and Affect: Mood normal. Behavior: Behavior normal. RESULTS: Recent labs and imaging personally reviewed and noted below: Labs: CMP: Lab Results Component Value Date GLUCOSE 80 02/25/2025 BUN 44 (H) 02/25/2025 CREATININE 1.95 (H) 02/25/2025 BCR 23 02/25/2025 NA 136 02/25/2025 K 4.2 02/25/2025 CL 103 02/25/2025 CO2 23 02/25/2025 ALBUMIN 4.4 02/25/2025 A1C: Lab Results Component Value Date HGBA1C 5.6 02/25/2025 CBC: Lab Results Component Value Date WBC 5.19 02/25/2025 HGB 16.6 02/25/2025 HCT 50.6 02/25/2025 MCV 95 02/25/2025 PLT 175 02/25/2025 Cardiology: No results found for this or any previous visit (from the past 4464 hours). No echocardiogram results found for the past 12 months OSH cardiac testing ([facility]): Nuclear stress test 10/10/2022: ECG portion of Lexiscan is non-diagnostic. No evidence of reversible ischemia seen, EF 66% without regional wall motion abnormality, RV is mildly enlarged with normal contractility. Normal myocardial perfusion imaging. Echo 08/2022: mildly enlarged LA, mild concentric LVH, EF 55% without regional wall motion abnormality, grade I diastolic dysfunction CT heart with calcium score 09/04/2022: calcium score 71 percentile with coronary artery calcium score of 938 ASSESSMENT AND PLAN: Devon Joyner is a 79 y.o. 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 Medicine is consulted for medical co-management. Essential hypertension PAT/PSVT - Follows with [facility] cardiology - ECG 02/01/25 with sinus bradycardia (HR 59), incomplete RBBB, age indeterminate septal infarct - Per OSH cardiology records, questionable history of atrial fib, previously on Eliquis but now on ASA monotherapy with last dose ~ 1 week ago - Currently in sinus rhythm with HR 60s-70s - Resume home nebivolol in am - BP overall stable, resume nifedipine followed by losartan then hydrochlorothiazide depending on BP trend Left hip osteoarthritis s/p DAVID with associated reduced mobility - s/p left DAVID today - PT/OT eval pending - DVT ppx: ASA 81mg bid, per primary - Analgesia and bowel regimen per primary Daily alcohol consumption - Reports drinking 2-3 cocktails nightly (vodka, gin, and bourbon), denies withdrawal symptoms whenhe goes 1-2 days between consumption - Counseled on alcohol cessation, particularly post-op while taking potentially sedating medication/controlled substances Chronic/stable conditions: - Mild cognitive impairment: home Namzaric not on formulary, resume donepezil and memantine based on hospital formulary options, per discussion with PharmD - Hypothyroidism: resume levothyroxine in am - CKD: Cr 1.9 02/25 without previous records available for review, recommend repeat BMP in am, avoidnephrotoxins (including NSAIDs), monitor UOP - TEO: resume home CPAP at bedtime and with naps, monitor for oversedation - Seasonal allergies: resume home cetirizine - HLD: resume rosuvastatin Thank you for allowing us to participate in this patient's care, we will continue to follow. Pleasecontact the hospital medicine KADEN (GSH consult KADEN 7A- 7P, night AKDEN 7P-7A) with questions or concerns. Sade Carlson PA-C Division of Hospital Medicine Secure chat preferred Cosigned by Owen Wallace MD at 03/22/2025 9:02 AM EDT Associated attestation - Owen Wallace MD - 03/22/2025 9:02 AM EDT The patient was seen only by Advanced Practice Provider ([facility]AD[facility]). * Care Plan - Anamika Sosa RN - 03/14/2025 10:41 AM EDT Problem: Adult Inpatient Plan of Care Goal: Plan of Care Review Outcome: Ongoing, Progressing Flowsheets (Taken 03/14/2025 1040) Plan of Care Reviewed With: patient Goal: Patient-Specific Goal (Individualized) Outcome: Ongoing, Progressing Flowsheets (Taken 03/14/2025 0650 by Carolina Gregory, ANGIE) Patient/Family-Specific Goals (Include Timeframe): pt to remain free from falls or injuries while in pre-op. Anxieties, Fears or Concerns: pt voices concerns prior to surgey. Goal: Absence of Hospital-Acquired Illness or Injury Outcome: Ongoing, Progressing Goal: Optimal Comfort and Wellbeing Outcome: Ongoing, Progressing Goal: Readiness for Transition of Care Outcome: Ongoing, Progressing Problem: Skin Injury Risk Increased Goal: Skin Health and Integrity Outcome: Ongoing, Progressing Intervention: Optimize Skin Protection Flowsheets (Taken 03/14/2025 0949 by Delia Azul RN) Activity Management: bedrest * Anesthesia PACU Signout - Justus Taylor MD - 03/14/2025 10:23 AM EDT Patient: Devon Joyner Anesthesia Type: general Vitals Value Taken Time BP 141/69 03/14/25 10:15 Temp 36.3 ??C (97.4 ??F) 03/14/25 09:28 Pulse 65 03/14/25 10:22 Resp 14 03/14/25 10:22 SpO2 95 % 03/14/25 10:22 Vitals shown include unfiled device data. Anesthesia PACU Signout Patient location during evaluation: PACU Patient participation: complete - patient participated Level of consciousness: baseline and awake Pain management: adequate (pain score 0-3) Airway patency: natural airway Hydration status: acceptable PONV: none Cardiovascular status: acceptable and hemodynamically stable Respiratory status: acceptable, spontaneous ventilation, unassisted and nonlabored ventilation Discharge Disposition: admit to inpatient unit * Op Note - Raymond Mclean MD - 03/14/2025 8:04 AM EDT Operative Note Date: 03/14/25 Location: [facility] OR Name: Devon Joyner, : 1945, SURGEON: Raymond Mclean M.D. CUSTOMER CARE VOICE CONSULTANT #1: Carlito Reeves MD as there was no qualified resident available CUSTOMER CARE VOICE CONSULTANT #2: Ranulfo Cottrell MD PREOPERATIVE DIAGNOSIS: Advanced degenerative joint disease secondary to osteoarthritis of the Left Hip POSTOPERATIVE DIAGNOSIS: same PROCEDURE: Left Anterior Total Hip Arthroplasty IMPLANTS: Acetabular component: Coyne [employer]hew 54 mm Acetabular screws: 35, 25 mm Acetabular liner: 54/42 OR3O Oxinium Femoral component: Polarstem Sz 3 HO Femoral head: 28+0 mm Oxinium, OR3O XLPE SURGICAL DETAILS: 1) Incision type: Modified Hueter 2) Incision length: 10 cm 3) Muscle repair: None 4) Case duration: 90 min 5) Estimated blood loss: 300 cc? 6) Crystalloid replacement: 1000 cc 7) Anesthesia type: General 8) Capsular injection: 60 cc 0.5% Bupivacaine with epinephrine 9) Specimens removed: Femoral head and acetabular reamings. 10) Preoperative antibiotics: 2 g Cefazolin , 1 g Vancomycin 11) TXA: 2g intravenous INDICATIONS FOR PROCEDURE: This patient presents for total hip arthroplasty for advanced degenerative joint disease of the hip. The patient has failed non-operative treatment. Risks, complications, and benefits of the procedure have been discussed preoperatively to include but not limited to infection, bleeding, anesthesia risks, sciatic nerve palsy, femoral nerve palsy, thigh numbness, instability, limb length discrepancy, aseptic loosening, osteolysis, DVT, continued pain, iatrogenic fracture, [place], stroke, and . The patient completed preoperative medical clearance and joint arthroplasty education. PROCEDURE: The patient was seen in the preoperative holding area. The operative site was confirmed and marked.SCD was placed on the nonoperative leg. The risks, benefits, and alternatives to surgery were againconfirmed with the patient and they wished to proceed. The patient was given iodine swabs for the nares for MRSA decolonization. The patient was brought to the operating room and placed on the operating room table in the supine position. After anesthesia was established, the bilateral ankles were padded with ABD pads, soft roll, and Coban. The feet were placed in the traction boots. The perineal post pad was placed. All bonyprominences were otherwise padded. A surgical time out was taken to confirm the operative side and planned procedure. The patient was given prophylactic antibiotics with Vancomycin and another antibiotic for gram negative coverage within one hour of skin incision. Vancomycin was given over concerns for MRSA infection and the other antibiotic for gram negative coverage. The patient was also given TXA and at skin closure. The hip was prepped and draped in the usual sterile fashion. The patient had complete paralysis at this point to prevent traction related injury. AP of the pelvis was obtained to standardize the hipsfor comparison later in the case. A modified Hueter approach was performed. The incision was carried through the subcutaneous tissue to the underlying tensor fascia , which were incised. The tensor muscle was teased off of the fascia. Retractors were then placed to further develop the interval between the tensor fascia and the rectus femoris. The ascending branches of the lateral femoral circumflex vessels were coagulated using the Aquamantys. Retractors were then placed under the rectus and over the medial capsule and also the superior capsule. The capsulotomy was then performed and suture were placed in both the medial and lateral portions. Sufficient medial capsular release was performed. The femoral neck cut was performed after verifying its position with fluoroscopy. With slight traction and external rotation, the femoral head was removed. Retractors were then placed to expose the acetabulum. The acetabulum was reamed to give a line to line press fit, using fluoroscopy for assistance. The acetabular component was impacted into position targeting 40-45 degrees of abduction and 20-25 degrees of anteversion. Screw fixation was utilized to enhance acetabular component fixation. Fl uoroscopy was used to confirm acetabular component position. The acetabular liner was placed and impacted into position. The liner locking mechanism engaged. Attention was then turned to the femoral side. With the femur rotated to 120o without any traction, a retractor was placed medially to the calcar.The superolateral capsular release was then performed to allow for delivering the femur up into theincision. The hip was then placed in extension and adduction. Retractor was then placed over the tip of the greater trochanter. Femoral preparation was started with a box osteotome and canal finder. The canal was sequentially broached to a stable fit. The final broach was impacted into position in approximately 10 degrees of anteversion, following the posterior calcar for assistance with version.. The trial head was placed. Retractors were removed. The leg was then brought into neutral, and then traction was applied with internal rotation to reduce the hip. Fluoroscopy was used to check the stem size, position, and leg lengths. The hip stability was assessed. The hip was stable in extensionand external rotation as well as in flexion, adduction of 20 degrees and internal rotation to 80 degrees. The hip was dislocated, the trial broach was removed, the canal irrigated with pulsatile lavage and dried, and the final stem was inserted in routine fashion. After placement of the stem, the trunnion was cleansed and dried and the modular head firmly impacted in place and the hip reduced. Again, leg length assessment and stability assessment of the hip were performed to confirm optimal component selection. The wound was irrigated with sterile dilute betadine solution and hemostasis obtained. Final imaging of the hip was obtained. Vancomycin powder was placed into the hip incision. 1g TXA was given IV at this point. The pericapsular injection was performed with the local anesthetic. The anterior hip capsule was repaired utilizing the #5 Fiberwire. The tensor fascia was then closed with #1 Vicryl and Stratafix. The subcutaneous tissue was closed in layers with Stratafix with skin closure using a running subcuticular and Dermabond Prineo followed by Tegaderm dressing. SCD was placed to the operative limb. The patient tolerated the procedure well and was taken to the recovery room in good condition. Complications: None apparent. Sponge, instrument, and needle counts were correct x 2. Delay in starting chemical prophylaxis for 23 hours from surgical incision was over concerns for hematoma formation and wound related issues. There was no qualified resident for this case. Carlito Reeves MD who has operative credentials at the [facility]. His assistance was needed for exposure, retraction, implantation and closure of the wound. I was present for the entire procedure. Submitted by: Raymond Mclean MD - 03/14/2025 Hip Approach: Direct anterior AJRR Anticipated Discharge or exclusion: Anticipate discharge home. * H&P - Owen Cottrell MD - 03/14/2025 6:04 AM EDT Chief Complaint: Left Hip Pain History of Present Illness: Devon Joyner is a 79 y.o. male presenting with above complaint and was previously evaluated and deemed a candidate for surgery based on history and physical exam. They are feeling well on day of surgery. No changes to medical history. All questions answered. Past Medical History: has a past medical history of Adverse effect of anesthesia, HLD (hyperlipidemia), HTN (hypertension), Hypothyroid, Mild cognitive impairment, and TEO on CPAP. He has no past medical history of Malignant hyperthermia. Surgical History: has a past surgical history that includes Hand surgery (Left); Inguinal Hernia Repair (Right); and Colonoscopy. Family History: Family History[1] Social History: reports that he has quit smoking. His smoking use included cigarettes. He has never used smokeless tobacco. He reports current alcohol use. He reports that he does not use drugs. Allergies: Oxycodone-acetaminophen, Hydrocodone-acetaminophen, and Hydromorphone Medications: Current Medications[2] Review of systems: negative unless noted in the HPI Physical exam: Last recorded vitals: There were no vitals taken for this visit. refer to nursing notes General: no apparent distress, nonlabored breathing HEENT: speaks clearly, eyes open CV: perfused extremities Respiratory: moves air well, nonlabored breathing Ext: Left Lower Extremity Inspection: No rashes, skin lesions, or open wounds Motor: motor intact EHL,/FHL/GSC/TA Sensory: SILT in Sa, Quinonez, Dp, SP, and T nerve distributions Vascular: Foot is WWP Refer to anesthesiology H and P for other pertinent physical findings related to surgical preparedness. Assessment/Plan: Arthritis of left hip Procedure(s) (LRB): ARTHROPLASTY, HIP, TOTAL, ANTERIOR APPROACH (Left) NPO since midnight LLE marked Informed consent obtained To OR with Dr. Mclean for Left Total Hip Arthroplasty Owen Cottrell MD Orthopedic Surgery PGY-2 [facility] Personal Pager: [phone] Orthopaedic Trauma Service Pager: [phone] Orthopaedic Recon/Spine/Foot and Ankle Service Pager: [phone] [1] Family History Problem Relation Name Age of Onset Anesthesia problems Neg Hx Malig Hyperthermia Neg Hx [2] Current Facility-Administered Medications Medication Dose Route Frequency Provider Last Rate Last Admin acetaminophen (Tylenol) tablet 1,000 mg 1,000 mg Oral Once Raymond Mclean MD ceFAZolin (Ancef) injection 2 g 2 g Intravenous Once Raymond Mclean MD dexamethasone (Decadron) injection 8 mg 8 mg Intravenous Once Raymond Mclean MD gabapentin (Neurontin) capsule 300 mg 300 mg Oral Once Raymond Mclean MD ketorolac (Toradol) injection 15 mg 15 mg Intravenous Once Raymond Mclean MD oxyCODONE (Roxicodone) immediate release tablet 5 mg 5 mg Oral Once Raymond Mclean MD Povidone-Iodine 5 % swab solution 1 Application 1 Application Nasal Once Raymond Mclean MD scopolamine (Transderm-Scop) patch 1 patch 1 patch Transdermal Once Raymond Mclean MD sodium chloride 0.9 % flush 10 mL 10 mL Intravenous q8h PRN Raymond Mclean MD And sodium chloride 0.9 % flush 10 mL 10 mL Intravenous PRN Raymond Mclean MD traMADol (Ultram) tablet 50 mg 50 mg Oral Once Raymond Mclean MD tranexamic acid (Cyklokapron) IVPB 1,000 mg 1,000 mg Intravenous Once Raymnod Mclean MD tranexamic acid (Cyklokapron) IVPB 1,000 mg 1,000 mg Intravenous Once Raymond Mclean MD vancomycin in NS (Vancocin) IVPB 1,250 mg 15 mg/kg Intravenous Once Raymond Mclean MD Cosigned by Raymond Mclean MD at 03/14/2025 7:10 AM EDT Associated attestation - Raymond Mclean MD - 03/14/2025 7:10 AM EDT I saw and evaluated the patient with the resident/fellow. I discussed the case with the resident/fellow and agree with the findings and plan as documented. documented in this encounter Plan of Treatment Upcoming Encounters Date Type Department Care Team (Late st Contact Info) Description 03/31/2025 10:00 AM EDT Office Visit Medical Office Building [facility] [address], [address] [place] [address] Irene Good PA [address] [place] [address] 04/28/2025 10:50 AM EDT Office Visit Medical Office [facility] [address], [address] [place] [address] Raymond Mclean MD [address] [place] [address] Scheduled Referrals Name Type Priority Associated Diagnoses Order Schedule Discharge Ambulatory referral to Physical Therapy Outpatient Referral Routine Arthritis of left hip 1 Occurrences starting 03/15/2025 until 09/16/2026 documented as of this encounter Goals Goal Patient Goal Type Associated Problems Recent Progress Patient-Stated? Author Autogenerat ed Goal Care Plan Autogenerated Problem No Melanie Plummer documented as of this encounter Procedures Procedure Name Priority Date/Time Associated Diagnosis Comments BASIC METABOLIC PANEL, PLASMA Routine 03/15/2025 3:04 AM EDT NON-INVASIVE VENTILATION Routine 03/14/2025 10:49 AM EDT NON-INVASIVE VENTILATION Routine 03/14/2025 10:49 AM EDT XR HIP LEFT 2 OR 3 VIEWS STAT 03/14/2025 9:44 AM EDT FL LESS THAN 1 HOUR (NON-REPORTABLE) Routine 03/14/2025 8:52 AM EDT SURGICAL PATHOLOGY EXAM Routine 03/14/2025 8:06 AM EDT Arthritis of left hip ME TOTAL HIP ARTHROPLASTY 03/14/2025 7:19 AM EDT Arthritis of left hip documented in this encounter Results * (ABNORMAL) Basic metabolic panel (03/15/2025 3:04 AM EDT) Glucose, Plasma 146(H) 74 - 99 mg/dL 03/15/2025 3:45 AM EDT [facility] BUN, Plasma 35(H) 8 - 23 mg/dL 03/15/2025 3:45 AM EDT [facility] Creatinine, Plasma 1.79(H) 0.70 - 1.20 mg/dL 03/15/2025 3:45 AM EDT [facility] BUN/Creatinine Ratio 20 03/15/2025 3:45 AM EDT [facility] Sodium, Plasma 137 136 - 145 mmol/L 03/15/2025 3:45 AM EDT [facility] Potassium, Plasma 4.6 3.6 - 4.9 mmol/L 03/15/2025 3:45 AM EDT [facility] Chloride, Plasma 107 97 - 107 mmol/L 03/15/2025 3:45 AM EDT [facility] CO2, Plasma 21(L) 22 - 29 mmol/L 03/15/2025 3:45 AM EDT [facility] Anion Gap 9 6 - 16 mmol/L 03/15/2025 3:45 AM EDT [facility] Total Calcium, Plasma 8.5(L) 8.9 - 10.2 mg/dL 03/15/2025 3:45 AM EDT [facility] eGFRcr 37.8 mL/min/1.7 3m*2 03/15/2025 3:45 AM EDT [facility] Comment:Reported eGFRcr in m L/min/1.73m2 is based the CKD-EPI 2020 equation that does not use a race coefficient. Blood Venous blood specimen / Unknown Venipuncture / Unknown 03/15/2025 3:04 AM EDT 03/15/2025 3:13 AM EDT us Veena Finnegan HEAD END DESIZING MACHINE OPERATOR LAB BLOOD ORDERABLES Final Re sult [facility] [address] [place] [address] * XR Hip Left 2 or 3 Views (03/14/2025 9:44 AM EDT) Anatomical Region Laterality Modality Lower Extremities, Hip Left Digital R adiography Impressions 03/14/2025 10:07 AM EDT Expected postoperative changes of left hip noncemented total hip arthroplasty. CRITICAL RESULT: No. COMMUNICATION: Per this written report. Drafted by Wade Funez MD on 03/14/2025 10:06 AM Final report signed by Wade Funez MD on 03/14/2025 10:07 AM Narrative 03/14/2025 10:07 AM EDT CLINICAL INDICATION: TOTAL LEFT HIP REPLACEMENT TECHNIQUE: XR HIP LEFT 2 OR 3 VIEWS COMPARISON: February 03, 2025 FINDINGS: 3 views of the left hip show noncemented total hip arthroplasty with expected air in the soft tissues. No complication. Mild degenerative changes of the right hip. Pubic symphysis and sacroiliac joints are normal. Moderate to severe degenerative disc changes at L4-L5. Procedure Note Wade Funez MD - 03/14/2025 CLINICAL INDICATION: TOTAL LEFT HIP REPLACEMENT TECHNIQUE: XR HIP LEFT 2 OR 3 VIEWS COMPARISON: February 03, 2025 FINDINGS: 3 views of the left hip show noncemented total hip arthroplasty withexpected air in the soft tissues. No complication. Mild degenerativechanges of the right hip. Pubic symphysis and sacroiliac joints arenormal. Moderate to severe degenerative disc changes at L4-L5. IMPRESSION: Expected postoperative changes of left hip noncemented total hiparthroplasty. CRITICAL RESULT: No. COMMUNICATION: Per this written report. Drafted by Wade Funez MD on 03/14/2025 10:06 AM Final report signed by Wade Funez MD on 03/14/2025 10:07 AM us Raymond Mclean MD IMG XR PROCEDURES Final Resu lt * FL Less than 1 Hour Intraoperative (03/14/2025 8:52 AM EDT) Narrative IMAGING - 03/14/2025 8:53 AM EDT Images were obtained for surgical purposes. See Raymond Mclean's surgical note in the patient's chart for the findings. us Raymond Mclean MD IMG FLUOROSCOPY PROCEDURES F inal Result IMAGING * Surgical Pathology Exam (03/14/2025 8:06 AM EDT) Case Report Surgical Pathology Case: [id number] Authorizing Provider: Raymond Mclean MD Collected: 03/14/2025 0806 Ordering Location: [facility] Operating Room Received: 03/14/2025 1037 Pathologist: Marcus Santana MD Specimen: Hip, Left, left femoral head 03/14/2025 2:40 PM EDT [facility] Final Diagnosis A. LEFT FEMORAL HEAD, TOTAL HIP ARTHROPLASTY: - DEGENERATIVE JOINT DISEASE, GROSS DIAGNOSIS ONLY 03/14/2025 2:40 PM EDT [facility] at 1440 EDT Clinical Information Arthritis of left hip 03/14/2025 2:40 PM EDT [facility] Gross Description A. LEFT FEMORAL HEAD Received in formalin for gross only labeled l eft femoral head , is one well-rounded femoral head measuring 5.0 cm in diameter. The articular surface is red-israel and roughened. There is a moderate amount of both osteophyte formation and eburnation grossly identified. Sectioning reveals a yellow -porous cut surface with a scant amount of hemorrhage. Gross photos are taken and specimen is submitted for gross examination only. Carmella Hunter [place] 03/14/2025 2:40 PM EDT [facility] Note: A resident was involved in the service. I attest I examined the relevant preparations for the specimens and confirmed the diagnosis or interpretation. 03/14/2025 2:40 PM EDT [facility] Bone Left hip region structure / Unknown 03/14/2025 8:06 AM EDT 03/14/2025 10:37 AM EDT Comment:Pre-op diagnosis: Arthritis of left hip [M16.12] us Raymond Mclean MD LAB PATHOLOGY ORDERABLES Fin al Result [facility] [address] [place] [address] documented in this encounter Visit Diagnoses Diagnosis Arthritis of left hip- Primary documented in this encounter Admitting Diagnoses Diagnosis Arthritis of left hip documented in this encounter Administered Medications Inactive Administered Medications - up to 3 most recent administrations Medication Order MAR Action Action Date Dose Rate Site acetaminophen (Tylenol) tablet 1,000 mg 1,000 mg, Oral, Every 8 hours scheduled, First dose on Fri03/14/25 at 1400, Until Discontinued, Routine, Recovery(Phase II-Outpatient)/On Unit(Inpatient) Given 03/15/2025 5:15 AM EDT 1,000 mg Given 03/14/2025 10:33 PM EDT 1,000 mg Given 03/14/2025 1:17 PM EDT 1,000 mg aspirin chewable tablet 81 mg 81 mg, Oral, 2 times daily, First dose on Fri03/15/25 at 0900, Until Discontinued, Routine, Recovery(Phase II-Outpatient)/On Unit(Inpatient) Given 03/15/2025 8:32 AM EDT 81 mg bethanechol (Urecholine) tablet 20 mg 20 mg, Oral, Once as needed, 1 dose, Starting on Fri03/14/25 at 1039, Until Fri03/14/25 at 1624, Routine, Recovery(Phase II-Outpatient)/On Unit(Inpatient), other, post-op urinary retention Given 03/14/2025 4:24 PM EDT 20 mg bisacodyl (Dulcolax) suppository 10 mg 10 mg, Rectal, 2 times daily PRN, Starting on Fri03/14/25 at 1039, Until Fri03/15/25 at 1457, Routine, Recovery(Phase II-Outpatient)/On Unit(Inpatient), constipation, for constipation - use if no bowel movement after giving magnesium hydroxide calcium-vitamin D 500-200 MG-UNIT per tablet 1 tablet 1 tablet, Oral, 2 times daily with meals, First dose on Fri03/14/25 at 2100, Until Discontinued, Routine, Recovery(Phase II-Outpatient)/On Unit(Inpatient) Given 03/15/2025 7:55 AM EDT 1 tablet Given 03/14/2025 8:53 PM EDT 1 tablet ceFAZolin (Ancef) injection 2 g 2 g, Intravenous, Every 8 hours, 3 doses, First dose on Fri03/14/25 at 1600, Last dose on Fri03/15/25 at 0800, Routine, Recovery(Phase II-Outpatient)/On Unit(Inpatient) Given 03/15/2025 7:56 AM EDT 2 g Given 03/14/2025 11:57 PM EDT 2 g Given 03/14/2025 3:34 PM EDT 2 g cetirizine (ZyrTEC) tablet 10 mg 10 mg, Oral, Daily, First dose on Fri03/15/25 at 0900, Until Discontinued, Routine Given 03/15/2025 8:31 AM EDT 10 mg dexamethasone (Decadron) injection 8 mg 8 mg, Intravenous, Once, 1 dose, On Fri03/14/25 at 0645, Routine, Holding - Preprocedure Given 03/14/2025 6:19 AM EDT 8 mg diphenhydrAMINE (Benadryl) tablet 12.5 mg 12.5 mg, Oral, Every 4 hours PRN, Starting on Fri03/14/25 at 1039, Until Fri03/15/25 at 1457, Routine, Recovery(Phase II-Outpatient)/On Unit(Inpatient), itching, sleep donepezil (Aricept) tablet 10 mg 10 mg, Oral, Nightly, First dose on Fri03/14/25 at 2100, Until Discontinued Given 03/14/2025 8:53 PM EDT 10 mg gabapentin (Neurontin) capsule 100 mg 100 mg, Oral, Every 8 hours, First dose on Fri03/14/25 at 1600, Until Discontinued, Routine, Recovery(Phase II-Outpatient)/On Unit(Inpatient) Given 03/15/2025 7:55 AM EDT 100 mg Given 03/14/2025 11:57 PM EDT 100 mg Given 03/14/2025 3:34 PM EDT 100 mg gabapentin (Neurontin) capsule 300 mg 300 mg, Oral, Once, 1 dose, On Fri03/14/25 at 0645, Routine, Holding - Preprocedure Given 03/14/2025 6:19 AM EDT 300 mg HYDROmorphone (Dilaudid) injection 0.5 mg 0.5 mg, Intravenous, Every 6 hours PRN, Starting on Fri03/14/25 at 1039, Until Fri03/15/25 at 1457, Routine, Recovery(Phase II-Outpatient)/On Unit(Inpatient), severe pain, pain score 9-10 ketorolac (Toradol) injection 15 mg 15 mg, Intravenous, Once, 1 dose, On Fri03/14/25 at 0645, Routine, Holding - Preprocedure Given 03/14/2025 6:18 AM EDT 15 mg lactated Ringer's infusion 50 mL/hr, Intravenous, Continuous, Starting on Fri03/14/25 at 1130, Until Fri03/15/25 at 1043, Routine New Bag 03/14/2025 10:44 AM EDT 50 mL/hr 50 mL /hr levothyroxine (Synthroid, Levoxyl) tablet 100 mcg 100 mcg, Oral, Every morning, First dose on Fri03/15/25 at 0600, Until Discontinued, Routine Given 03/15/2025 5:15 AM EDT 100 mcg magnesium hydroxide (Milk of Magnesia) 400 MG/5ML suspension 30 mL 30 mL, Oral, 2 times daily PRN, Starting on Fri03/14/25 at 1039, Until Fri03/15/25 at 1457, Routine, Recovery(Phase II-Outpatient)/On Unit(Inpatient), constipation, for constipation - use as first line agent memantine (Namenda) tablet 10 mg 10 mg, Oral, 2 times daily, First dose on Fri03/14/25 at 2100, Until Discontinued, Routine Given 03/15/2025 8:32 AM EDT 10 mg Given 03/14/2025 8:53 PM EDT 10 mg nebivolol (Bystolic) tablet 5 mg 5 mg, Oral, Daily, First dose on Fri03/15/25 at 0900, Until Discontinued, Routine Given 03/15/2025 8:31 AM EDT 5 mg ondansetron (Zofran) injection 4 mg 4 mg, Intravenous, Every 6 hours PRN, Starting on Fri03/14/25 at 1039, Until Fri03/15/25 at 1457, Routine, Recovery(Phase II-Outpatient)/On Unit(Inpatient), nausea, vomiting oxyCODONE (Roxicodone) immediate release tablet 5 mg 5 mg, Oral, Every 4 hours PRN, Starting on Fri03/14/25 at 1039, Until Fri03/15/25 at 1457, Routine, Recovery(Phase II-Outpatient)/On Unit(Inpatient), moderate pain, severe pain, Severe pain 5-8 Given 03/15/2025 9:54 AM EDT 5 mg Given 03/14/2025 7:39 PM EDT 5 mg pantoprazole (Protonix) EC tablet 40 mg 40 mg, Oral, Daily before breakfast, First dose on Fri03/14/25 at 1130, Until Discontinued, Routine, Recovery(Phase II-Outpatient)/On Unit(Inpatient) Given 03/15/2025 7:55 AM EDT 40 mg Given 03/14/2025 11:29 AM EDT 40 mg polyethylene glycol (Miralax) packet 17 g 17 g, Oral, Daily with breakfast, First dose on Fri03/15/25 at 0800, Until Discontinued, Routine, Recovery(Phase II-Outpatient)/On Unit(Inpatient) Given 03/15/2025 7:55 AM EDT 17 g Povidone-Iodine 5 % swab solution 1 Application Nasal, Once, 1 dose, On Fri03/14/25 at 0645, Routine Given 03/14/2025 6:19 AM EDT 1 Application rosuvastatin (Crestor) tablet 40 mg 40 mg, Oral, Daily, First dose on Fri03/15/25 at 0900, Until Discontinued Given 03/15/2025 8:31 AM EDT 40 mg senna-docusate (Ngozi-Colace) 8.6-50 MG per tablet 2 tablet 2 tablet, Oral, Nightly, First dose on Fri03/14/25 at 2100, Until Discontinued, Routine, Recovery(Phase II-Outpatient)/On Unit(Inpatient) Given 03/14/2025 8:53 PM EDT 2 tablets traMADol (Ultram) tablet 100 mg 100 mg, Oral, Every 8 hours scheduled, First dose on Fri03/14/25 at 1400, Until Discontinued, Routine, Recovery(Phase II-Outpatient)/On Unit(Inpatient) Given 03/15/2025 5:14 AM EDT 100 mg Given 03/14/2025 10:34 PM EDT 100 mg Given 03/14/2025 1:17 PM EDT 100 mg traMADol (Ultram) tablet 50 mg 50 mg, Oral, Every 12 hours PRN, Starting on Fri03/14/25 at 1039, Until Fri03/15/25 at 1457, Routine, Recovery(Phase II-Outpatient)/On Unit(Inpatient), severe pain, pain score 3-5. use prior to oxycodone or hydromorphone tranexamic acid (Lysteda) tablet 650 mg 650 mg, Oral, 3 times daily, 9 doses, First dose on Fri03/15/25 at 0900, Last dose on Fri03/17/25 at 2100, Routine Given 03/15/2025 8:31 AM EDT 650 mg vancomycin in NS (Vancocin) IVPB 1,250 mg 1,250 mg (rounded from 1,219.5 mg = 15 mg/kg 81.3 kg), Intravenous, Once, 1 dose, On Fri03/14/25 at 0645, at 200 mL/hr, STAT New Bag 03/14/2025 6:18 AM EDT 1,250 mg 200 mL/hr documented in this encounter Active and Recently Administered Medications Times are shown in EDT. Scheduled Medication Order 03/13/2025 03/14/2025 03/15/2025 acetaminophen (Tylenol) tablet 1,000 mg 1,000 mg, Oral, Every 8 hours scheduled, First dose on Fri03/14/25 at 1400, Until Discontinued, Routine, Recovery(Phase II-Outpatient)/On Unit(Inpatient) 1317 (Given - Provider: Anamika Sosa RN)2233 (Given - Provider: Oksana Epps RN) 0515 (Given - Provider: Oksana Epps RN)1400 (Canceled Entry - Provider: Automatic Discharge Provider - Comment: Automatically canceled at discontinue of medication order) aspirin chewable tablet 81 mg 81 mg, Oral, 2 times daily, First dose on Fri03/15/25 at 0900, Until Discontinued, Routine, Recovery(Phase II-Outpatient)/On Unit(Inpatient) 0832 (Given - Provid er: Anamika Sosa RN) calcium-vitamin D 500-200 MG-UNIT per tablet 1 tablet 1 tablet, Oral, 2 times daily with meals, First dose on Fri03/14/25 at 2100, Until Discontinued, Routine, Recovery(Phase II-Outpatient)/On Unit(Inpatient) 2052 (Given - Provider: Oksana Epps RN) 0755 (Given - Provider: Anamika Sosa RN) ceFAZolin (Ancef) injection 2 g (COMPLETED) 2 g, Intravenous, Once, 1 dose, On Fri03/14/25 at 0645, Routine, Anesthesia Intraprocedure 0744 (Given - Provider: Masoud Lamar CRNA) ceFAZolin (Ancef) injection 2 g (COMPLETED) 2 g, Intravenous, Every 8 hours, 3 doses, First dose on Fri03/14/25 at 1600, Last dose on Fri03/15/25 at 0800, Routine, Recovery(Phase II-Outpatient)/On Unit(Inpatient) 1534 (Given - Provider: Anamika Sosa RN)2357 (Given - Provider: Oksana Epps RN) 0756 (Given - Provider: Anamika Sosa RN) cetirizine (ZyrTEC) tablet 10 mg 10 mg, Oral, Daily, First dose on Fri03/15/25 at 0900, Until Discontinued, Routine 0831 (Given - Provid er: Anamika Sosa RN) dexamethasone (Decadron) injection 8 mg (COMPLETED) 8 mg, Intravenous, Once, 1 dose, On Fri03/14/25 at 0645, Routine, Holding - Preprocedure 0619 (Given - Provider: Carolina Gregory RN) donepezil (Aricept) tablet 10 mg 10 mg, Oral, Nightly, First dose on Fri03/14/25 at 2100, Until Discontinued 2052 (Given - Provider: Oksana Epps, ANGIE) gabapentin (Neurontin) capsule 100 mg 100 mg, Oral, Every 8 hours, First dose on Fri03/14/25 at 1600, Until Discontinued, Routine, Recovery(Phase II-Outpatient)/On Unit(Inpatient) 1534 (Given - Provider: Anamika Sosa RN)2357 (Given - Provider: Oksana Epps RN) 0755 (Given - Provider: Anamika Sosa RN) gabapentin (Neurontin) capsule 300 mg (COMPLETED) 300 mg, Oral, Once, 1 dose, On Fri03/14/25 at 0645, Routine, Holding - Preprocedure 0619 (Given - Provider: Carolina Gregory RN) ketorolac (Toradol) injection 15 mg (COMPLETED) 15 mg, Intravenous, Once, 1 dose, On Fri03/14/25 at 0645, Routine, Holding - Preprocedure 0618 (Given - Provider: Carolina Gregory RN) levothyroxine (Synthroid, Levoxyl) tablet 100 mcg 100 mcg, Oral, Every morning, First dose on Fri03/15/25 at 0600, Until Discontinued, Routine 0515 (Given - Provid er: Oksana pEps RN) memantine (Namenda) tablet 10 mg 10 mg, Oral, 2 times daily, First dose on Fri03/14/25 at 2100, Until Discontinued, Routine 2052 (Given - Provider: Oksana Epps RN) 08 (Given - Provider: Anamika Sosa RN) nebivolol (Bystolic) tablet 5 mg 5 mg, Oral, Daily, First dose on Fri03/15/25 at 0900, Until Discontinued, Routine 830 (Given - Provid er: Anamika Sosa RN) pantoprazole (Protonix) EC tablet 40 mg 40 mg, Oral, Daily before breakfast, First dose on Fri03/14/25 at 1130, Until Discontinued, Routine, Recovery(Phase II-Outpatient)/On Unit(Inpatient) 1129 (Given - Provider: Anamika Sosa RN) 0755 (Given - Provider: Anamika Sosa RN) polyethylene glycol (Miralax) packet 17 g 17 g, Oral, Daily with breakfast, First dose on Fri03/15/25 at 0800, Until Discontinued, Routine, Recovery(Phase II-Outpatient)/On Unit(Inpatient) 0755 (Given - Provid er: Anamika Sosa RN) Povidone-Iodine 5 % swab solution 1 Application (COMPLETED) Nasal, Once, 1 dose, On Fri03/14/25 at 0645, Routine 06 (Given - Provider: Carolina Gregory RN) rosuvastatin (Crestor) tablet 40 mg 40 mg, Oral, Daily, First dose on Fri03/15/25 at 0900, Until Discontinued 830 (Given - Provid er: Anamika Sosa RN) senna-docusate (Ngozi-Colace) 8.6-50 MG per tablet 2 tablet 2 tablet, Oral, Nightly, First dose on Fri03/14/25 at 2100, Until Discontinued, Routine, Recovery(Phase II-Outpatient)/On Unit(Inpatient) 2052 (Given - Provider: Oksana Epps, ANGIE) traMADol (Ultram) tablet 100 mg 100 mg, Oral, Every 8 hours scheduled, First dose on Fri03/14/25 at 1400, Until Discontinued, Routine, Recovery(Phase II-Outpatient)/On Unit(Inpatient) 1317 (Given - Provider: Anamika Sosa, ANGIE)2234 (Given - Provider: Oksana Epps, ANGIE) 0514 (Given - Provider: Oksana Epps RN)1400 (Canceled Entry - Provider: Automatic Discharge Provider - Comment: Automatically canceled at discontinue of medication order) tranexamic acid (Cyklokapron) IVPB 1,000 mg (COMPLETED) 1,000 mg, Intravenous, Once, 1 dose, On Fri03/14/25 at 0645, Routine, Holding - Preprocedure 0744 (Given - Provider: Masoud Lamar CRNA)0847 (Given - Provider: Justus Taylor MD) tranexamic acid (Lysteda) tablet 650 mg 650 mg, Oral, 3 times daily, 9 doses, First dose on Fri03/15/25 at 0900, Last dose on Fri03/17/25 at 2100, Routine 0831 (Given - Provid er: Anamika Sosa RN) vancomycin in NS (Vancocin) IVPB 1,250 mg (COMPLETED) 1,250 mg (rounded from 1,219.5 mg = 15 mg/kg 81.3 kg), Intravenous, Once, 1 dose, On Fri03/14/25 at 0645, at 200 mL/hr, STAT 0618 (New Bag - Provider: Carolina Gregory RN) Continuous Medication Order 03/13/2025 03/14/2025 03/15/2025 lactated Ringer's infusion 50 mL/hr, Intravenous, Continuous, Starting on Fri03/14/25 at 1130, Until Fri03/15/25 at 1043, Routine 1044 (New Bag - Provider: Anamika Sosa, ANGIE) PRN Medication Order 03/13/2025 03/14/2025 03/15/2025 bethanechol (Urecholine) tablet 20 mg (COMPLETED) 20 mg, Oral, Once as needed, 1 dose, Starting on Fri03/14/25 at 1039, Until Fri03/14/25 at 1624, Routine, Recovery(Phase II-Outpatient)/On Unit(Inpatient), other, post-op urinary retention 1624 (Given - Provider: Anamika Sosa RN) bisacodyl (Dulcolax) suppository 10 mg 10 mg, Rectal, 2 times daily PRN, Starting on Fri03/14/25 at 1039, Until Fri03/15/25 at 1457, Routine, Recovery(Phase II-Outpatient)/On Unit(Inpatient), constipation, for constipation - use if no bowel movement after giving magnesium hydroxide bupivacaine-EPINEPHrine PF (Marcaine w/EPI) 0.5% -1:130108 injection (CANCELED) As needed, Starting on Fri03/14/25 at 0807, Until Fri03/14/25 at 0924, Routine, Intraprocedure 0807 (Given - Provider: Raymond Mclean MD) diphenhydrAMINE (Benadryl) tablet 12.5 mg 12.5 mg, Oral, Every 4 hours PRN, Starting on Fri03/14/25 at 1039, Until Fri03/15/25 at 1457, Routine, Recovery(Phase II-Outpatient)/On Unit(Inpatient), itching, sleep HYDROmorphone (Dilaudid) injection 0.5 mg 0.5 mg, Intravenous, Every 6 hours PRN, Starting on Fri03/14/25 at 1039, Until Fri03/15/25 at 1457, Routine, Recovery(Phase II-Outpatient)/On Unit(Inpatient), severe pain, pain score 9-10 magnesium hydroxide (Milk of Magnesia) 400 MG/5ML suspension 30 mL 30 mL, Oral, 2 times daily PRN, Starting on Fri03/14/25 at 1039, Until Fri03/15/25 at 1457, Routine, Recovery(Phase II-Outpatient)/On Unit(Inpatient), constipation, for constipation - use as first line agent ondansetron (Zofran) injection 4 mg 4 mg, Intravenous, Every 6 hours PRN, Starting on Fri03/14/25 at 1039, Until Fri03/15/25 at 1457, Routine, Recovery(Phase II-Outpatient)/On Unit(Inpatient), nausea, vomiting oxyCODONE (Roxicodone) immediate release tablet 5 mg 5 mg, Oral, Every 4 hours PRN, Starting on Fri03/14/25 at 1039, Until Fri03/15/25 at 1457, Routine, Recovery(Phase II-Outpatient)/On Unit(Inpatient), moderate pain, severe pain, Severe pain 5-8 1939 (Given - Provider: Oksana Epps, ANGIE) 0954 (Given - Provider: Anamika Sosa RN) traMADol (Ultram) tablet 50 mg 50 mg, Oral, Every 12 hours PRN, Starting on Fri03/14/25 at 1039, Until Fri03/15/25 at 1457, Routine, Recovery(Phase II-Outpatient)/On Unit(Inpatient), severe pain, pain score 3-5. use prior to oxycodone or hydromorphone vancomycin (Vancocin) vial for injection (CANCELED) As needed, Starting on Fri03/14/25 at 0807, Until Fri03/14/25 at 0924, Routine, Intraprocedure 0734 (Given - Provider: Masoud Lamar CRNA - Comment: Continued from PACU, about 80cc left in the bag at anesthesia start)0807 (Given - Provider: Raymond Mclean MD) documented in this encounter Additional Health Concerns Active Problems Noted Date Diagnosed Date Autogenerated Problem 02/03/2025 Assessment Noted Time A fall risk assessment has been complete d for the patient 02/03/2025 8:14 AM EDT A Body Mass Index follow-up plan has been documented for the patient 03/15/2025 11:50 AM EDT documented as of this encounter Care Teams Strategic Intelligence Officer Relationship Specialty Start Date End Date Raymond Puckett MD [address] [place] [address] PCP - General Internal Medicine 02/03/25 documented as of this encounter
--- OUTSIDE RECORDS SUMMARY | 2025-03-14 07:30 | XMS_ITS | Encounter Summary ---
Author Organization Healthcare Address [address] [place] [address] Care Team Providers Care Earth Science Faculty Member Name Role Phone Raymond Puckett MD Primary Care Provider [phone] Reason for Visit * Auth/Cert (Routine) Specialty Diagnoses / Procedures Referred By Gerardo mckeon Referred To Contact Diagnoses Arthritis of left hip Arthritis of left hip [M16.12] Procedures SD TOTAL HIP ARTHROPLASTY ARTHROPLASTY, HIP, TOTAL, ANTERIOR APPROACH Raymond Mclean MD [address] [place] [phone] Phone: tel: fax: [facility] Operating Room [address] [place] [address] Phone: tel: Referral ID Status Reason Start Date Expiration Date Visits Re quested Visits Authorized [id number] 1 1 Encounter Details Date Type Department Care Team (Late st Contact Info) Description 03/14/2025 7:30 AM EDT - 03/14/2025 9:55 AM EDT Surgery [facility] Operating Room [address] [place] [address] Raymond Mclean MD [address] [place] [phone] ARTHROPLASTY, HIP, TOTAL, ANTERIOR APPROACH [84665 (CPT )] Surgery Details Date/Time Status Location OR Service Patient Class Case Class Case Type Trauma Case? 03/14/2025 7:30 AM Posted [facility] 02 Orthopedic Surgery Extended Recovery E-Electi ve Panel 1 Procedure LRB Anes Op Region Wound Class Comments ARTHROPLASTY, HIP, TOTAL, AN TERIOR APPROACH Left Choice Hip Class I/ Clean Surgeon Surgeon Role Service Panel Owen Cottrell MD Resident - Assisting 1 Raymond Mclean MD Primary Orthopedic Surgery 1 Carlito Reeves MD Fellow Orthopedic Surgery 1 documented in this encounter Social History Tobacco [...] Sign Reading Time Taken Comments Blood Pressure 140/76 03/14/2025 9:45 AM EDT Pulse 69 03/14/2025 9:55 AM EDT Temperature 36.3 C (97.4 F) 03/14/2025 9:28 AM EDT Respiratory Rate 23 03/14/2025 9:55 AM EDT Oxygen Saturation 100% 03/14/2025 9:55 AM EDT Inhaled Oxygen Concentration - - Weight 77.6 kg (171 lb 1.2 oz) 03/14/2025 6:42 A M EDT Height 172.7 cm (5' 8 ) 03/14/2025 6:42 AM EDT Body Mass Index 26.01 03/14/2025 6:42 AM EDT documented in this encounter Discharge Instructions * Discharge Instructions* [...] in Care Family/Caregiver Present: Yes Family/Caregiver: Spouse Instrumentation Engineer: Not Applicable Presentation Oxygen Therapy: None (Room [...] Transfer Exam: Sit to stand Level of Kelley: Contact guard Physical/Nonphysical Assist: Moderate cues, Verbal Cues, Nonverbal cues (demo/gestures) Assistive Device: Walker, rolling Transfer Exam: Stand to Sit Level of Kelley: Contact guard Physical/Nonphysical Assist: Verbal Cues, Minimal [...] home. Therapeutic Exercise (15 minutes) Access Code: [email or web address]; URL: [email or web address] Date: 03/15/2025 Prepared by: Trinity Werner Program [...] on 03/15/25 at 12:21 PM. * Familia Brand RN - 03/15/2025 11:50 AM EDT Images [...] stretches within a safe range of motion. [id number]-zm-[id number] ? Being on the bottom is safe [...] PCP name and Address: Raymond Puckett MD [address] [facility] [address] / [place] [address] Referring provider name and address: Raymond Puckett MD [address] [facility] [place], [facility] Chief Concern, Brief History of Present Illness, and Hospital Course Patient arrived to [facility] on 03/14/25 for their scheduled surgery. Patient [...] Your Medications These medications were sent to [facility] - [address] [address] acetaminophen 500 MG tablet aspirin 81 MG [...] Center 03/31/2025 10:00 AM Irene Good PA ORTHGSAMY [facility] 04/28/2025 10:50 AM Raymond Mclean [...] with me. * Progress Notes - Dutch Gamble APRN - 03/15/2025 11:10 AM EDT Interval Hx [...] can continue his levothyroxine upon discharge Stephane Gamble, [facility] Medicine Secure Chat [1] Current Facility-Administered Medications Medication Dose Route Frequency Provider Last Rate Last Admin acetaminophen (Tylenol) tablet 1,000 mg 1,000 mg Oral q8h ROSE Brandan Calix MD 1,000 mg at 03/15/25 0515 aspirin chewable tablet 81 mg 81 mg Oral BID Brandan Calix MD 81 mg at 03/15/25 0832 bisacodyl (Dulcolax) suppository 10 mg 10 mg Rectal BID PRN Brandan Calix MD calcium-vitamin D 500-200 MG-UNIT per tablet 1 tablet 1 tablet Oral BID with meals Brandan Calix MD 1 tablet at 03/15/25 0755 cetirizine (ZyrTEC) tablet 10 mg 10 mg Oral Daily Sade Carlson PA 10 mg at 03/15/25 0831 diphenhydrAMINE (Benadryl) tablet 12.5 mg 12.5 mg Oral q4h PRN Brandan Calix MD donepezil (Aricept) tablet 10 mg 10 mg Oral Nightly Sade Carlson PA 10 mg at 03/14/25 205 gabapentin (Neurontin) capsule 100 mg 100 mg Oral q8h Brandan Calix MD 100 mg at 03/15/25 0755 HYDROmorphone (Dilaudid) injection 0.5 mg 0.5 mg [...] Sade Carlson PA 5 mg at 03/15/25 0831 ondansetron (Zofran) injection 4 mg 4 mg Intravenous q6h PRN Brandan Calix MD oxyCODONE (Roxicodone) immediate release tablet 5 mg 5 mg Oral q4h PRN Brandan Calix MD 5 mg at03/15/25 0954 pantoprazole (Protonix) EC tablet 40 mg 40 mg Oral Daily before breakfast Brandan Calix MD 40 mg at 03/15/25 0755 polyethylene glycol (Miralax) packet 17 g 17 g Oral Daily with breakfast Brandan Calix MD 17 g at 03/15/25 0755 rosuvastatin (Crestor) tablet 40 mg 40 mg Oral Daily Sade Carlson PA 40 mg at 03/15/25 0831 senna-docusate (Ngozi-Colace) 8.6-50 MG per tablet 2 tablet 2 tablet Oral Nightly Brandan Calix MD 2 tablet at 03/14/252052 traMADol (Ultram) tablet 100 mg 100 mg Oral q8h ROSE Brandan Calix MD 100 mg at 03/15/25 0514 traMADol (Ultram) tablet 50 mg 50 mg Oral q12h PRN Brandan Calix MD tranexamic acid (Lysteda) tablet 650 mg 650 mg Oral TID Veena Finnegan APRN 650 mg at 03/15/25 0831 * Progress Notes - Kathy Joshua - 03/15/2025 9:07 AM EDT Occupational Therapy [...] in Care Family/Caregiver Present: No Family/Caregiver: Spouse Instrumentation Engineer: Not Applicable Presentation Oxygen Therapy: None (Room [...] shoes)) Level of Mobility: Ambulatory- community Mobility Kelley: Independent gait without device History of Falls: [...] Transfer Exam: Sit to stand Level of Kelley: Contact guard Physical/Nonphysical Assist: Moderate cues, Verbal Cues, Nonverbal cues (demo/gestures) Assistive Device: Walker, rolling Transfer Exam: Stand to Sit Level of Kelley: Contact guard Physical/Nonphysical Assist: Verbal Cues, Minimal cues Assistive Device: Walker, rolling Toilet Transfer Level of Kelley: Contact guard Physical/Nonphysical Assist: Moderate cues, Verbal [...] safety issues and problem solve. Standardized Assessments [facility] 6-Click Daily Activities Help from Other: Don/Doff Regular Lower Body Clothings: None Help From Other: Bathing: Little Help From Other: Toileting: None Help From Other: Don/Doff Upper Body Clothings: None Help From Other: Grooming: None Help From Other: Eating Meals: None [facility] 6 Click - Daily Activities Score: 23 [...] 11:52 AM. * Care Plan - Anamika Soas RN - 03/15/2025 9:01 AM EDT Problem: Adult Inpatient Plan of Care Goal: Plan of Care Review Outcome: Ongoing, Progressing Flowsheets (Taken 03/15/2025 0901) Plan of Care Reviewed With: patient Goal: Patient-Specific Goal (Individualized) Outcome: Ongoing, Progressing Flowsheets (Taken 03/15/2025 0223 by Oksana Epps RN) Patient/Family-Specific Goals (Include [...] Skin Protection Flowsheets (Taken 03/15/2025222 by Oksana Epps, RN) Activity Management: activity adjusted per tolerance Problem: Hip Arthroplasty Goal: Optimal Coping Outcome: Ongoing, Progressing Goal: Absence of Bleeding Outcome: Ongoing, Progressing Intervention: Monitor and Manage Bleeding Flowsheets (Taken 03/15/2025222 by Oksana Epps, RN) Bleeding Management: dressing monitored Goal: Effective [...] from the original note were not included. 66226 After Hip Replacement: Using Your Walker After [...] walker. Last Reviewed Date: 2024 00:00:00 ?? [id number] The [employer]. All rights reserved. This information is not intended as a substitute for professional medical care. Always follow your healthcare professional's instructions. * [facility] - Familia Benitez RN - 03/15/2025 7:49 AM EDT Images from the original note were not included. 27813 Using an Incentive Spirometer An incentive spirometer [...] rate Last Reviewed Date: 2024 00:00:00 ?? [employer]. All rights reserved. This information is not intended as a substitute for professional medical care. Always follow your healthcare professional's instructions. * Steph Martinez - Familia Benitez RN - 03/15/2025 7:49 AM EDT Images from the original note were not included. 30995 Preventing Deep Vein Thrombosis After Surgery In [...] blood clots. Move your feet in a lummi or up and down. Do this 10 [...] bleeding. Last Reviewed Date: 2025 00:00:00 ?? 7595-1996 [employer]. All rights reserved. This information is not intended as a substitute for professional medical care. Always follow your healthcare professional's instructions. * Steph Martinez - Familia Benitez RN - 03/15/2025 7:49 AM EDT Images from the original note were not included. 81606 Preventing a Surgical Site Infection A risk [...] of infection. ?? Controlled body temperature. A yjyvr-tkck-dqllzt temperature during or after surgery prevents oxygen [...] and water or with an alcohol-based hand supervisor electric before and after caring for you. Don?t [...] away. Last Reviewed Date: 2024 00:00:00 ?? 3504-9072 [employer]. All rights reserved. This information is not [...] has the new hip. Use pillows between your legs if sleeping on your side. Be sure [...] medicines unless your doctor approves. This includes qupe-trd-jtzcuku medicines like aspirin, ibuprofen and Tylenol. ?? [...] a nutritional supplement such as Boost or [place] Instant Breakfast until your appetite returns to [...] surgery. If you have problems sleeping, take fiip-oxo-mawlxit diphenhydramine (Benadryl) or melatonin. ?? If you [...] prescription refill before your next appointment, call [phone]. Call 3 business days before you run out of medicine. ?? To check joint stability over time, you may have X-rays every five years. When should I call the doctor? Call 911 right away if you have any of [...] Cottrell MD - 03/15/2025 6:37 AM EDT EMY--Orthopaedic Reconstruction Team--Progress Note: Date: 03/15/25 Subjective: s/p [...] PTOT Owen Cottrell MD Orthopedic Surgery PGY-2 [facility] Personal Pager: [phone] Orthopaedic Trauma Service Pager: [phone] Orthopaedic Recon/Spine/Foot and Ankle Service Pager: [phone] Cosigned by Raymond Mclean MD at 03/15/2025 [...] adjusted per tolerance * Progress Notes - Graybeal Trinity Mayfield - 03/14/2025 2:25 PM EDT Physical Therapy [...] in Care Family/Caregiver Present: Yes Family/Caregiver: Spouse Instrumentation Engineer: Not Applicable Presentation Oxygen Therapy: None (Room [...] shoes)) Level of Mobility: Ambulatory- community Mobility Kelley: Independent gait without device History of Falls: [...] Mobility Bed Mobility Exam: Rolling/Turning Level of Kelley: Contact guard Physical/Nonphysical Assist: Supervision, Verbal Cues, Minimal cues Assistive Device: Bed rails Bed Mobility Exam: Scooting/Bridging Level of Kelley: Contact guard Physical/Nonphysical Assist: Set-up required, Supervision, Verbal Cues, Minimal cues Assistive Device: Bed rails Bed Mobility Exam: Supine to Sit Level of Kelley: Minimum assist (75% patient's effort) (needs time and assist with L LE's) Physical/Nonphysical Assist: Set-up required, Supervision, Verbal Cues, Minimal cues Assistive Device: Bed rails Transfers Transfer Exam: Sit to stand Level of Kelley: Contact guard (Needs time) Physical/Nonphysical Assist: Supervision, Verbal Cues, Minimal cues, Additional assist utilized forsafety Assistive Device: Walker, rolling Transfer Exam: Stand to Sit Level of Kelley: Minimum assist (75% patient's effort) Physical/Nonphysical Assist: [...] understood. 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 Essential hypertension PAT/PSVT - Follows with [facility] cardiology - ECG 02/01/25 with [...] KADEN (GSH consult KADEN 7A- 7P, night KADEN 7P-7A) with questions or concerns. MARNIE Calhoun-[facility] Medicine Secure chat preferred Cosigned by [...] Progressing Flowsheets (Taken 03/14/2025 0650 by Carolina Gregory RN) Patient/Family-Specific Goals (Include Timeframe): pt to remain [...] Protection Flowsheets (Taken 03/14/2025 0949 by Delia Azul, RN) Activity Management: bedrest * Anesthesia PACU [...] AM EDT Operative Note Date: 03/14/25 Location: [facility] OR Name: Devon Joyner, : 1945, SURGEON: Rayomnd Mclean M.D. BRUSH MATERIAL PREPARER #1: Carlito Reeves MD as there was no qualified resident available BRUSH MATERIAL PREPARER #2: Ranulfo Cottrell MD PREOPERATIVE DIAGNOSIS: Advanced [...] loosening, osteolysis, DVT, continued pain, iatrogenic fracture, IA, stroke, and . The patient completed preoperative [...] MD who has operative credentials at the [facility]. His assistance was needed for exposure, retraction, [...] Arthroplasty Owen Cottrell MD Orthopedic Surgery PGY-2 [facility] Personal Pager: [phone] Orthopaedic Trauma Service Pager: [phone] Orthopaedic Recon/Spine/Foot and Ankle Service Pager: [phone] [1] Family History Problem Relation Name Age [...] 1,000 mg Intravenous Once Raymond Mclean MD tranexamic acid (Cyklokapron) [...] Building [facility] [address], [address] [place] [address] Irene Good PA [address] [place] [address] 04/28/2025 10:50 AM EDT Office Visit Medical Office [facility] [address], [address] [place] [address] Raymond Mclean MD [address] [place] [address] Scheduled Referrals Name Type Priority [...] 8:06 AM EDT Arthritis of left hip SD TOTAL HIP ARTHROPLASTY 03/14/2025 7:19 AM EDT Arthritis of left hip documented in this encounter Results * (ABNORMAL) Basic metabolic panel (03/15/2025 3:04 AM EDT) Glucose, Plasma 146(H) 74 - 99 mg/dL 03/15/2025 3:45 AM EDT [facility] BUN, Plasma 35(H) 8 - 23 mg/dL 03/15/2025 3:45 AM EDT [facility] Creatinine, Plasma 1.79(H) 0.70 - 1.20 mg/dL 03/15/2025 3:45 AM EDT HEALTHCARE LAB BUN/Creatinine Ratio 20 03/15/2025 3:45 AM EDT [facility] Sodium, Plasma 137 136 - 145 mmol/L 03/15/2025 3:45 AM EDT [facility] Potassium, Plasma 4.6 3.6 - 4.9 mmol/L 03/15/2025 3:45 AM EDT [facility] Chloride, Plasma 107 97 - 107 mmol/L 03/15/2025 3:45 AM EDT [facility] CO2, Plasma 21(L) 22 - 29 mmol/L 03/15/2025 3:45 AM EDT [facility] Anion Gap 9 6 - 16 mmol/L 03/15/2025 3:45 AM EDT [facility] Total Calcium, Plasma 8.5(L) 8.9 - 10.2 mg/dL 03/15/2025 3:45 AM EDT [facility] eGFRcr 37.8 mL/min/1.7 3m*2 03/15/2025 3:45 AM EDT [facility] Comment:Reported eGFRcr in m L/min/1.73m2 is based the CKD-EPI 2020 equation that does not use a race coefficient. Blood Venous blood specimen / Unknown Venipuncture / Unknown 03/15/2025 3:04 AM EDT 03/15/2025 3:13 AM EDT Veena Finnegan INFORMATION SECURITY OFFICER LAB BLOOD ORDERABLES Final Re sult [facility] [address] [place] [id number] * XR Hip Left 2 or 3 [...] Wade Funez MD on 03/14/2025 10:07 AM Raymond Mclean MD IMG XR PROCEDURES Final Resu lt * FL Less than 1 Hour Intraoperative (03/14/2025 8:52 AM EDT) Narrative IMAGING - 03/14/2025 8:53 AM EDT Images were obtained for surgical purposes. See Raymond Mclean's surgical note in the patient's chart for the findings. Raymond Mclean MD IMG FLUOROSCOPY PROCEDURES F inal Result IMAGING * Surgical Pathology Exam (03/14/2025 8:06 AM EDT) Case Report Surgical Pathology Case: [id number] Authorizing Provider: Raymond Mclean MD Collected: 03/14/2025 0806 Ordering Location: [facility] Operating Room Received: 03/14/2025 1037 Pathologist: Marcus Santana MD Specimen: Hip, Left, left femoral head 03/14/2025 2:40 PM EDT [facility] Final Diagnosis A. LEFT FEMORAL HEAD, TOTAL HIP ARTHROPLASTY: - DEGENERATIVE JOINT DISEASE, GROSS DIAGNOSIS ONLY 03/14/2025 2:40 PM EDT [facility] at 1440 EDT Clinical Information Arthritis of left hip 03/14/2025 2:40 PM EDT [facility] Gross Description A. LEFT FEMORAL HEAD [...] is submitted for gross examination only. Carmella Saxena 03/14/2025 2:40 PM EDT [facility] Note: A resident was involved in the service. I attest I examined the relevant preparations for the specimens and confirmed the diagnosis or interpretation. 03/14/2025 2:40 PM EDT [facility] Bone Left hip region structure / Unknown 03/14/2025 8:06 AM EDT 03/14/2025 10:37 AM EDT Comment:Pre-op diagnosis: Arthritis of left hip [M16.12] us Raymond Mclean MD LAB PATHOLOGY ORDERABLES Fin al Result [facility] [address] [place] [address] documented in this encounter Visit Diagnoses Diagnosis Arthritis of left hip- Primary Arthritis of left hip documented in this encounter Admitting Diagnoses Diagnosis [...] magnesium hydroxide bupivacaine-EPINEPHrine PF (Marcaine w/EPI) 0.5% -1:[id number] injection As needed, Starting on Fri03/14/25 at 0807, Until Fri03/14/25 at 0924, Routine, Intraprocedure Given 03/14/2025 8:07 AM EDT 60 mL Left Upper Hip calcium-vitamin D 500-200 MG-UNIT per tablet 1 [...] 03/15/2025 8:31 AM EDT 650 mg vancomycin (Vancocin) vial for injection As needed, Starting on Fri03/14/25 at 0807, Until Fri03/14/25 at 0924, Routine, Intraprocedure Given 03/14/2025 8:07 AM EDT 1 g Lef t Upper Hip Given 03/14/2025 7:34 AM EDT 1.25 g vancomycin in NS (Vancocin) IVPB 1,250 mg [...] Anesthesia Intraprocedure 0744 (Given - Provider: Masoud M Willard, ENGINEER ASSISTANT) ceFAZolin (Ancef) injection 2 g (COMPLETED) 2 g, Intravenous, Every 8 hours, 3 doses, First dose on Fri03/14/25 at 1600, Last dose on Fri03/15/25 at 0800, Routine, Recovery(Phase II-Outpatient)/On Unit(Inpatient) 1534 (Given - Provider: Anamika Soas RN)2357 (Given - Provider: Oksana Epps RN) [...] Until Discontinued 2052 (Given - Provider: Oksana Epps RN) gabapentin (Neurontin) capsule 100 mg 100 mg, [...] - Preprocedure 0619 (Given - Provider: Carolina Gregory, ANGIE) ketorolac (Toradol) injection 15 mg (COMPLETED) 15 mg, Intravenous, Once, 1 dose, On Fri03/14/25 at 0645, Routine, Holding - Preprocedure 0618 (Given - Provider: Carolina Gregory, ANGIE) levothyroxine (Synthroid, Levoxyl) tablet 100 mcg 100 mcg, Oral, Every morning, First dose on Fri03/15/25 at 0600, Until Discontinued, Routine 0515 (Given - Provid er: Oksana Epps RN) memantine (Namenda) tablet 10 mg 10 mg, Oral, 2 times daily, First dose on Fri03/14/25 at 2100, Until Discontinued, Routine 2052 (Given - Provider: Oksana Epps RN) 0832 (Given - Provider: Anamika Sosa RN) nebivolol (Bystolic) tablet 5 mg 5 mg, Oral, Daily, First dose on Fri03/15/25 at 0900, Until Discontinued, Routine 08 (Given - Provid er: Anamika Sosa RN) [...] 1 dose, On Fri03/14/25 at 0645, Routine 0619 (Given - Provider: Carolina Gregory RN) rosuvastatin (Crestor) tablet 40 mg 40 mg, Oral, Daily, First dose on Fri03/15/25 at 0900, Until Discontinued 830 (Given - Provid er: Anamika Sosa RN) senna-docusate (Ngozi-Colace) 8.6-50 MG per tablet 2 tablet 2 tablet, Oral, Nightly, First dose on Fri03/14/25 at 2100, Until Discontinued, Routine, Recovery(Phase II-Outpatient)/On Unit(Inpatient) 2052 (Given - Provider: Oksana Epps RN) traMADol (Ultram) tablet 100 mg 100 mg, Oral, Every 8 hours scheduled, First dose on Fri03/14/25 at 1400, Until Discontinued, Routine, Recovery(Phase II-Outpatient)/On Unit(Inpatient) 1317 (Given - Provider: Anamika Sosa RN)2234 (Given - Provider: Oksana Epps, ANGIE) 0514 (Given - Provider: Oksana Epps, ANGIE)1400 (Canceled Entry - Provider: Automatic Discharge Provider [...] STAT 0618 (New Bag - Provider: Carolina Gregory, ANGIE) Continuous Medication Order 03/13/2025 03/14/2025 03/15/2025 lactated Ringer's infusion 50 mL/hr, Intravenous, Continuous, Starting on Fri03/14/25 at 1130, Until Fri03/15/25 at 1043, Routine 1044 (New Bag - Provider: Anamika Sosa RN) PRN Medication Order 03/13/2025 03/14/2025 03/15/2025 bethanechol [...] magnesium hydroxide bupivacaine-EPINEPHrine PF (Marcaine w/EPI) 0.5% -1:[id number] injection (CANCELED) As needed, Starting on Fri03/14/25 [...] moderate pain, severe pain, Severe pain 5-8 193 (Given - Provider: Oksana Epps, ANGIE) 0954 (Given - Provider: nAamika Sosa, ANGIE) traMADol (Ultram) tablet 50 mg 50 mg, [...] documented as of this encounter Care Teams Earth Science Faculty Member Relationship Specialty Start Date End Date Raymond Puckett MD [address] [place] [address] PCP - General Internal Medicine 02/03/25 documented as of this encounter
--- OUTSIDE RECORDS SUMMARY | 2025-03-14 07:34 | XMS_ITS | Encounter Summary ---
Author Organization Healthcare Address [address] [place] [address] Care Team Providers Care Barrel Leveler Name Role Phone Raymond Puckett MD Primary Care Provider [phone] Reason for Visit * Auth/Cert (Routine) Specialty Diagnoses / Procedures Referred By Gerardo mckeon Referred To Contact Diagnoses Arthritis of left hip Arthritis of left hip [M16.12] Procedures ID TOTAL HIP ARTHROPLASTY ARTHROPLASTY, HIP, TOTAL, ANTERIOR APPROACH Raymond Mclean MD [address] [address] Phone: tel: fax: [facility] Operating Room [address] [place] [address] Phone: tel: Referral ID Status Reason Start Date Expiration Date Visits Re quested Visits Authorized [id number] 1 1 Encounter Details Date Type Department Care Team (Late st Contact Info) Description 03/14/2025 7:34 AM EDT Anesthesia Event [facility] Operating Room [address] [place] [address] Justus Taylor MD [address] [place] [address] Anesthesia Record Procedure Summary Procedure Name Responsible [...] opportunity for questions and acknowledgement of understanding. 927 An Stop Meds Name Total fentaNYL (Sublimaze) injection 50 mcg/mL 100 mcg lidocaine PF (Xylocaine-MPF) 2% 80 mg propofol (Diprivan) injection 10 mg/mL 2 00 mg rocuronium (ZeMuron) injection 10 mg/mL 80 mg dexamethasone (Decadron) injection 4 mg/ mL 8 mg HYDROmorphone PF (Dilaudid) injection 1 mg/mL 1 mg ePHEDrine injection prefilled syringe 5 mg/mL 45 mg phenylephrine (Ángel-Synephrine) prefilled syringe 1 mg/10 mL 700 mcg ondansetron (Zofran) injection 2 mg/mL 4 mg sugammadex (Bridion) injection 100 mg/mL 200 mg glycopyrrolate (Robinul) injection 0.2 m g/mL 0.2 mg ceFAZolin (Ancef) injection 2 g 2 g vancomycin (Vancocin) vial for injection 1.25 g tranexamic acid (Cyklokapron) IVPB 1,000 mg 2,000 mg lactated Ringer's infusion 900 mL * Agents Name O2 * Blood No blood administrations on file. Lines, Drains, and Airways Type Details Placement Removal Wound 03/14/25; 804; N; Y es; Surgical; Open Surg (dressed with prineo, 4x4s, tegaderms); Leg; Anterior, Left, Upper 03/14/25804 by Danay Burnett RN Peripheral IV Placement Date: 03/01 12/24; Placement Time: 614; Catheter Size: 20 G; Orientation: Anterior, Right; Location: Forearm; Site Prep: Chlorhexidine ; Insertion Attempts: 1; Patient Tolerance: Tolerated well; Removal Date: 03/15/25; Removal Time: 1154; Removal Reason: Discharge 03/14/25 0615 by Carolina Gregory RN 03/15/25 1154 by Anamika Sosa RN ETT Placement Date: 03/01 12/24; Placement Time: 740 (created via procedure documentation); Mask Ventilation: 2; Technique: Direct laryngoscopy; Type: ETT - single; Single Lumen Tube Size: 7.5 mm; Cuffed: Yes; Laryngoscope: Julio; Blade Size: 3; Location: Oral; Grade View: Grade IIb; Insertion Attempts: 1; Placement Verification: Auscultation, Capnometry; Airway Comments: Atraumatic. No change to dentition. ; Placed by: BRIGETTE; Removal Date: 03/14/25; Removal Time: 91803/14/25 07 by Masoud Lamar CRNA 03/14/25918 by Masoud [...] on file documented as of this encounter Miscellaneous Notes * Anesthesia Postprocedure Evaluation - Masoud Lamar CRNA - 03/14/2025 9:56 AM EDT Patient: Devon Joyner Anesthesia Type: general [facility] Regional Anesthesia Exemption: Not attempted Vitals Value Taken Time Blood Pressure 118/72 03/14/25 09:45 Temp 36.3 ??C (97.4 ??F) 03/14/25 09:28 Pulse 67 03/14/25 09:55 Resp 10 03/14/25 09:55 SpO2 100 % 03/14/25 09:55 Vitals shown include unfiled device data. Anesthesia Post Evaluation Patient location during evaluation: PACU Patient participation: complete - patient cannot participate (drowsy but arousable) Level of consciousness: sedated Pain management: adequate (pain score 0-3) Airway patency: natural airway Cardiovascular status: acceptable and hemodynamically stable Respiratory status: acceptable, blow-by oxygen, face mask, nonlabored ventilation, spontaneous ventilation and unassisted Hydration status: acceptable Nausea/Vomiting: No No notable events documented. * Anesthesia Procedure Notes - Masoud Lamar CRNA - 03/14/2025 8:10 AM EDT Associated Order(s): Airway Airway Date/Time: 03/14/2025 7:41 AM Reason: elective Airway not difficult General Information and Staff Patient location during procedure: OR SAVINGS TELLER: Masoud Lamar CRNA Performed: SAVINGS TELLER Patient Condition Indications for airway management: anesthesia Patient position: sniffing Final Airway Details Final airway type: endotracheal airway Successful airway: ETT Cuffed: yes Successful intubation technique: direct laryngoscopy Adjuncts used in placement: intubating stylet and anterior pressure/BURP Endotracheal tube insertion site: oral Blade: Julio Blade size: #3 ETT size (mm): 7.5 Cormack-Lehane Classification: grade IIb - view of arytenoids or posterior of glottis only Placement verified by: chest auscultation and capnometry Cuff volume (mL): 7 Measured from: teeth ETT to teeth (cm): 22 Additional Comments Atraumatic. No change to dentition. * Anesthesia Preprocedure Evaluation - Justus Taylor MD - 03/14/2025 7:10 AM EDT Images from the original note were not included. HPI Devon Joyner is a 79 y.o. male who presents with Pre-op Diagnosis * Arthritis of left hip [M16.12] now scheduled for ARTHROPLASTY, HIP, TOTAL, ANTERIOR APPROACH (Left)with Raymond Mclean MD on 03/14/2025 at [facility]. Past Medical History[1] Family History[2] Social History[3] SURGICAL HISTORY: Surgical History[4] Allergies[5] MEDICATIONS: Current Medications[6] ROS Anesthesia: Date of last anesthetic: Most recent G.A ~ 20 yrs ago. Most recent colonoscopy 2020. history of previous anesthesia and obstructive sleep apnea (cpap at [facility] Cardiovascular: dysrhythmias (PAT/PSVT- BB patricia. Emanuel reviewed the heart monitor and it showed PSVT and PAT but no afib.) and hyperlipidemia. Does not have angina, CAD, CHF, pacemaker or past IA. hypertension: Exercise tolerance is 2 flights of [...] 02/25/2025 CO2 23 02/25/2025 ALBUMIN 4.4 02/25/2025 Lab Results Component Value Date HGBA1C 5.6 02/25/2025 No results found for: INR , PROTIME Visit Vitals BP (!) 147/75 Pulse 51 Temp 36.5 ??C (97.7 ??F) (Temporal) Resp 20 Ht 1.727 m (5' 8 ) Wt 77.6 kg (171 lb 1.2 oz) BMI 26.01 kg/m?? Smoking Status Former BSA 1.93 m?? Physical Exam Airway Mallampati: II Mouth opening: limited TM distance: >3 FB Neck ROM: full Cardiovascular Rhythm: regular Rate: normal Dental Comments: FRONT UPPER and LOWER CROWNS. Pulmonary Breath sounds clear to auscultation Neurological Oriented: normal to time, normal to person and normal to place Skin Musculoskeletal Extremities Anesthesia Plan ASA 3 Plan was reviewed with: SAVINGS TELLER and attending Anesthesia technique(s) discussed with the patient/family: general Anesthesia plan agreed upon was: general Comment: Discussed with Dr. Campos. Anesthetic plan and risks discussed with patient. Justus Taylor MD [1] Past Medical History: Diagnosis Date Adverse [...] oxycodone Hydrocodone-Acetaminophen Rash Hydromorphone Rash [6] Current Facility-Administered Medications: acetaminophen ceFAZolin oxyCODONE scopolamine Insert peripheral IV AND Saline lock IV AND sodium chloride AND sodium chloride traMADol tranexamic acid tranexamic acid vancomycin documented in this encounter Plan of Treatment Upcoming Encounters Date Type Department Care Team (Late st Contact Info) Description 03/31/2025 10:00 AM EDT Office Visit Medical [facility] [address], [address] [place] [address] Irene Good PA [address] [place] [address] 04/28/2025 10:50 AM EDT Office Visit Medical Office [facility] [address], [address] [place] [address] Raymond Mclean MD [address] [place] [address] documented as of this encounter Goals Goal Patient Goal Type Associated Problems Recent Progress Patient-Stated? Author Autogenerat ed Goal Care Plan Autogenerated Problem No Elian Melanie Tran documented as of this encounter Procedures Procedure Name Priority Date/Time Associated Diagnosis Comments PB ANESTHESIA PLACEHOLDER Routine 03/14/2025 7:41 AM EDT ID AN ELECTIVE ENDOTRACHEAL AIRWAY Routine 03/14/2025 7:41 AM EDT documented in this encounter Results * ID AN ELECTIVE ENDOTRACHEAL AIRWAY, PB ANESTHESIA PLACEHOLDER (03/14/2025 7:41 AM EDT) Narrative Masoud Lamar CRNA - 03/14/2025 7:41 AM EDT Masoud Lamar CRNA 03/14/2025 8:12 AM Airway Date/Time: 03/14/2025 7:41 AM Reason: elective Airway not difficult General Information and Staff Patient location during procedure: OR SAVINGS TELLER: Masoud Lamar CRNA Performed: SAVINGS TELLER Patient Condition Indications for airway management: anesthesia Patient position: sniffing Final Airway Details Final airway type: endotracheal airway Successful airway: ETT Cuffed: yes Successful intubation technique: direct laryngoscopy Adjuncts used in placement: intubating stylet and anterior pressure/BURP Endotracheal tube insertion site: oral Blade: Julio Blade size: #3 ETT size (mm): 7.5 Cormack-Lehane Classification: grade IIb - view of arytenoids or posterior of glottis only Placement verified by: chest auscultation and capnometry Cuff volume (mL): 7 Measured from: teeth ETT to teeth (cm): 22 Additional Comments Atraumatic. No change to dentition. Justus Taylor MD ANESTHESIA ORDERABLES Final R esult documented in this encounter Visit Diagnoses Not on filedocumented in this encounter Administered Medications Inactive Administered Medications - up to 3 most recent administrations Medication Order MAR Action Action Date Dose Rate Site ceFAZolin (Ancef) injection 2 g 2 g, Intravenous, Once, 1 dose, On Fri03/14/25 at 0645, Routine, Anesthesia Intraprocedure Given 03/14/2025 7:44 AM EDT 2 g dexamethasone (Decadron) injection Intravenous, As needed, Starting on Fri03/14/25 at 0744, Until Fri03/14/25 at 0956, Routine, Anesthesia Intraprocedure Given 03/14/2025 7:44 AM EDT 8 mg ePHEDrine Sulfate (Akovaz) injection Intravenous, As needed, Starting on Fri03/14/25 at 0755, Until Fri03/14/25 at 0956, Routine, Anesthesia Intraprocedure Given 03/14/2025 9:12 AM EDT 10 mg Given 03/14/2025 9:09 AM EDT 10 mg Given 03/14/2025 8:47 AM EDT 5 mg fentaNYL (Sublimaze) injection Intravenous, As needed, Starting on Fri03/14/25 at 0803, Until Fri03/14/25 at 0956, Routine, Anesthesia Intraprocedure Given 03/14/2025 8:17 AM EDT 50 mcg Given 03/14/2025 8:03 AM EDT 25 mcg Given 03/14/2025 7:38 AM EDT 25 mcg glycopyrrolate (Robinul) injection Intravenous, As needed, Starting on Fri03/14/25 at 0753, Until Fri03/14/25 at 0956, Routine, Anesthesia Intraprocedure Given 03/14/2025 7:53 AM EDT 0.2 mg HYDROmorphone PF (Dilaudid) injection Intravenous, As needed, Starting on Fri03/14/25 at 0836, Until Fri03/14/25 at 0956, Routine, Anesthesia Intraprocedure Given 03/14/2025 9:03 AM EDT 0.5 mg Given 03/14/2025 8:36 AM EDT 0.5 mg lactated Ringer's infusion Intravenous, Continuous PRN, Starting on Fri03/14/25 at 0734, Until Fri03/14/25 at 0956, Routine New Bag 03/14/2025 7:34 AM EDT lidocaine PF (Xylocaine) 2 % injection Intravenous, As needed, Starting on Fri03/14/25 at 0738, Until Fri03/14/25 at 0956, Routine, Anesthesia Intraprocedure Given 03/14/2025 7:38 AM EDT 80 mg ondansetron (Zofran) injection Intravenous, As needed, Starting on Fri03/14/25 at 0900, Until Fri03/14/25 at 0956, Routine, Anesthesia Intraprocedure Given 03/14/2025 9:00 AM EDT 4 m g phenylephrine in NS (Ángel-Synephrine) 100 mcg/mL prefilled syringe Intravenous, As needed, Starting on Fri03/14/25 at 0756, Until Fri03/14/25 at 0956, Routine, Anesthesia Intraprocedure Given 03/14/2025 9:12 AM EDT 100 mcg Given 03/14/2025 9:06 AM EDT 100 mcg Given 03/14/2025 8:49 AM EDT 200 mcg propofol (Diprivan) injection Intravenous, As needed, Starting on Fri03/14/25 at 0738, Until Fri03/14/25 at 0956, Routine, Anesthesia Intraprocedure Given 03/14/2025 9:03 AM EDT 40 mg Given 03/14/2025 8:14 AM EDT 20 mg Given 03/14/2025 7:38 AM EDT 140 mg rocuronium (ZeMuron) injection Intravenous, As needed, Starting on Fri03/14/25 at 0803, Until Fri03/14/25 at 0956, Routine, Anesthesia Intraprocedure Given 03/14/2025 8:03 AM EDT 20 mg Given 03/14/2025 7:39 AM EDT 60 mg sugammadex (Bridion) 100 MG/ML injection Intravenous, As needed, Starting on Fri03/14/25 at 0900, Until Fri03/14/25 at 0956, Routine, Anesthesia Intraprocedure Given 03/14/2025 9:00 AM EDT 200 mg tranexamic acid (Cyklokapron) IVPB 1,000 mg 1,000 mg, Intravenous, Once, 1 dose, On Fri03/14/25 at 0645, Routine, Holding - Preprocedure Given 03/14/2025 8:47 AM EDT 1,000 mg Given 03/14/2025 7:44 AM EDT 1,000 mg vancomycin (Vancocin) vial for injection As needed, Starting on Fri03/14/25 at 0807, Until Fri03/14/25 at 0924, Routine, Intraprocedure Given 03/14/2025 8:07 AM EDT 1 g Left Upper Hip Given 03/14/2025 7:34 AM EDT 1.25 g documented in this encounter Additional Health Concerns Active Problems Noted Date Diagnosed Date Autogenerated Problem 02/03/2025 Assessment Noted Time A fall risk assessment has been complete d for the patient 02/03/2025 8:14 AM EDT A Body Mass Index follow-up plan has been documented for the patient 03/15/2025 11:50 AM EDT documented as of this encounter Care Teams Barrel Leveler Relationship Specialty Start Date End Date Raymond Puckett MD [address] [place] [address] PCP - General Internal Medicine 02/03/25 documented as of this encounter
--- OUTSIDE RECORDS SUMMARY | 2025-03-25 10:22 | XMS_ITS ---
Author Organization [facility] Address [address] [facility] [address] [place] [address] Care Team Providers Care Hris Administrator Name Role Phone Raymond Puckett Primary Care Provider Encounters Encounter Location Date Provider Diagnosis [facility] [address] [place] [address] 03/25/2025 Raymond Puckett Urinary frequency R35.0 Assessments Encounter Date Diagnosis (ICD Code) Assessment Notes Treatment Notes Treatment Clinical Notes Section Notes 03/25/2025 Urinary frequency (ICD-10 - R35.0) Plan Of Treatment Pending Test Test Name Order Date M-Urine Culture 03/25/2025 Progress Notes * Devon HUDDLESTONDOB:1945 (79 yo M)Acc No.[id number]:03/25/2025 Patient: Devon FERRER :1945 A ge:79 Y S ex:Male Address:[address] [place] [address] Subjective: * Chief Complaints: * * Medical History: * Surgical History: * Hospitalization/Major Diagno stic Procedure: * Medications: Objective: * Vitals: * Physical Examination: Assessment: * Assessment: 1. U rinary frequency - R35.0 Plan: * Treatment: * Procedure Codes: * true * Date: Generated for Printi ng/Faxing/eTransmitting on: 0 03/25/2025 04:14 PM EDT
--- OUTSIDE RECORDS SUMMARY | 2025-03-25 16:13 | XMS_ITS | Encounter Summary ---
Author Organization [facility] Address [address] [id number] Care Team Providers Care Secondary English Teacher Name Role Phone Raymond Puckett MD Primary Care Provider [phone] Reason for Referral * Consultation (Routine) - Closed Specialty Diagnoses / Procedures Referred By Gerardo mckeon Referred To Contact Orthopaedic Surgery Diagnoses Sacro ilial pain Raymond Puckett MD [address] [place] [address] Phone: tel: fax: Raymond Mclena MD [address] [facility] [address] [place] [address] Phone: tel: fax: Referral ID Status Reason Start Date Expiration Date V isits Requested Visits Authorized [id number] Closed Specialty Services Required 01/31/2025 08/02/2026 1 1 Encounter Details Date Type Department Care Team (Late st Contact Info) Description 01/31/2025 Community Orders Community Practice [address] [place] [address] Raymond Puckett MD [address] [facility] [address] [place] [address] Sacro ilial pain (Primary Dx) Social History Tobacco Use Types Packs/Day Years Used Date Smoking Tobacco: Never Assessed Sex and Gender Information Value Date Recorded Sex Assigned at Not on file Legal Sex Male 8:34 PM EDT Gender Identity Not on file Sexual Orientation Not on file documented as of this encounter Plan of Treatment Upcoming Encounters Date Type Department Care Team (Late st Contact Info) Description 03/31/2025 10:00 AM EDT Office Visit Medical Office Building [facility] [address], [address] [place] [address] Irene Good PA [address] [place] [address] 04/28/2025 10:50 AM EDT Office Visit Medical Office Building [facility] [address], [address] [place] [address] Raymond Mclean MD [address] [place] [address] Scheduled Referrals Name Type Priority Associated Diagnoses Order Schedule Ambulatory referral to General Orthopaedics Outpatient Referral Routine Sacro ilial pain Expected: 02/01/2025, Expires: 08/04/2026 documented as of this encounter Visit Diagnoses Diagnosis Sacro ilial pain- Primary Disorders of sacrum documented in this encounter Care Teams Secondary English Teacher Relationship Specialty Start Date End Date Raymond Puckett MD [address] [place] [address] PCP - General Internal Medicine 02/03/25 documented as of this encounter
--- OUTSIDE RECORDS SUMMARY | 2025-03-25 16:13 | XMS_ITS | Encounter Summary ---
Author Organization Healthcare Address [address] [place] [address] Care Team Providers Care Nitroglycerin Distributor Name Role Phone Raymond Puckett MD Primary Care Provider [phone] Encounter Details Date Type Department Care Team (Late Contact Info) Description 01/31/2025 Orders Only External Location [address] [place] [address] Raymond Puckett MD [address] [place] [id number] Social History Tobacco Use Types Packs/Day Years Used Date Smoking Tobacco: Never Assessed Sex and Gender Information Value Date Recorded Sex Assigned at Not on file Legal Sex Male 8:34 PM EDT Gender Identity Not on file Sexual Orientation Not on file documented as of this encounter Plan of Treatment Upcoming Encounters Date Type Department Care Team ([facility] Contact Info) Description 03/31/2025 10:00 AM EDT Office Visit Medical Office Building [facility] [address], [address] [place] [address] Irene Good PA [address] [place] [address] 04/28/2025 10:50 AM EDT Office Visit Medical Office Building [facility] [address], [address] [place] [address] Raymond Mclean MD [address] [place] [address] documented as of this encounter Procedures Procedure Name Priority Date/Time Associated Diagnosis Comments XR OUTSIDE IMAGES 01/31/2025 4:27 PM EDT documented in this encounter Results * XR OUTSIDE IMAGES (01/31/2025 4:27 PM EDT) Anatomical Region Laterality Modality Radiographic Precious ging 01/31/2025 4:27 PM EDT Raymond Puckett MD IMG XR PROCEDURES Final Resu lt documented in this encounter Visit Diagnoses Not on filedocumented in this encounter Care Teams Nitroglycerin Distributor Relationship Specialty Start Date End Date Raymond Puckett MD [address] [place] [address] PCP - General Internal Medicine 02/03/25 documented as of this encounter
--- OUTSIDE RECORDS SUMMARY | 2025-03-25 16:14 | XMS_ITS | Encounter Summary ---
Author Organization Healthcare Address [address] [place] [address] Care Team Providers Care Tire Servicer Name Role Phone Raymond Puckett MD Primary Care Provider [phone] Encounter Details Date Type Department Care Team (Latest Contact Info) Description 02/03/2025 Travel Social History Tobacco Use Types Packs/Day Years [...] Joint [address], [address] [place] [address] Irene Good PA [address] [place] [address] 04/28/2025 10:50 AM EDT Office Visit Medical Office Building [facility] [address], [address] [place] [address] Raymond Mclean MD [address] [place] [address] documented as of this encounter Goals Goal Patient Goal Type Associated Problems Recent Progress Patient-Stated? Author Autogenerat ed Goal Care Plan Autogenerated Problem No Hrivnak, Melanie M documented as of this encounter Visit Diagnoses Not on filedocumented in this encounter Additional Health Concerns Active Problems Noted Date Diagnosed Date Autogenerated Problem 02/03/2025 Assessment Noted Time A fall risk assessment has been complete d for the patient 02/03/2025 8:14 AM EDT A Body Mass Index follow-up plan has been documented for the patient 02/03/2025 8:42 AM EDT documented as of this encounter Care Teams Tire Servicer Relationship Specialty Start Date End Date Raymond Puckett MD [address] [place] [address] PCP - General Internal Medicine 02/03/25 documented as of this encounter
--- OUTSIDE RECORDS SUMMARY | 2025-03-25 16:14 | XMS_ITS | Clinical Summary ---
Author Organization [facility] Address [address] [place] [address] Care Team Providers Care Warehouse Shift Supervisor Name Role Phone Raymond Puckett MD Primary Care Provider [phone] Allergies Active Allergy Reactions Criticality Noted Date Comments Hydrocodone-Acetaminophen Rash Low 02/25/2025 Hydromorphone Rash Low 02/25/2025 Oxycodone-Acetaminophen Itching,Rash Medium 10/27/2015 acetaminophen / oxycodone Medications rosuvastatin (Crestor) 40 MG tablet Take 1 tablet by mouth daily. Active tadalafil (Cialis) 10 MG tablet Take 1 tablet by mouth daily. Active ASPIRIN 81 PO Take 81 mg by mouth daily. Active celecoxib (CeleBREX) 100 MG capsule Take 1 capsule by mouth daily. Active levothyroxine (Synthroid, Levoxyl) 100 MCG tablet Take 1 tablet by mouth daily. Active losartan (Cozaar) 100 MG tablet Take 1 tablet by mouth daily. Active Namzaric 28-10 MG capsule sustained-rele ase 24 hr Take 1 tablet by mouth daily. Active NIFEdipine CC (Adalat CC) 30 MG 24 hr tablet Take 1 tablet by mouth daily before breakfast. Do not crush, chew, or split. Active hydroCHLOROthi azide (Microzide) 12.5 MG capsule Take 1 capsule by mouth every morning. Active nebivolol (Bystolic) 5 MG tablet Take 1 tablet by mouth daily. Active cetirizine (ZyrTEC) 10 MG tablet Take 1 tablet by mouth daily. Active Multiple Vitamin (MULTIVITAMIN PO) Take 1 tablet by mouth daily. Active testosterone (Androgel) 50 MG/5GM (1%) gel Place 50 mg on the skin daily. Active traMADol (Ultram) 50 MG tablet Take 1 tablet by mouth every 4 hours as needed for severe pain. 60 tablet 03/14/20 Active gabapentin (Neurontin) 100 MG capsule Take 1 capsule by mouth 3 times a day. If this medication makes you drowsy you may take it only at bedtime 30 capsule 03/14/20 25 Active naloxone (Narcan) 4 mg/0.1 mL nasal spray 1. Give 1 spray in nostril for no/slow breathing or cannot wake after opioid use 2. Call 911 3. Repeat in other nostril if symptoms continue 1 each 03/15/20 25 Active aspirin 81 MG EC tablet Take 1 tablet by mouth 2 times a day for 28 days. For 4 weeks post-op for blood clot prevention 56 tablet 03/15/20 25 Active omeprazole (PriLOSEC) [address] capsule Take 1 capsule by mouth daily for 28 days. Do not crush or chew. 28 capsule 03/15/20 25 Active docusate sodium (Colace) 250 MG capsule Take 1 capsule by mouth 2 times a day. 60 capsule 03/15/20 25 Active acetaminophen (Tylenol Extra Strength) 500 MG tablet Take 2 tablets by mouth every 8 hours. 100 tablet 03/15/20 Active Testosterone 50 MG pellet 1 PKT(S) TRANSDERMALLY ONCE A DAY (IN THE MORNING) Discontinu ed(Entered in Error) Rosuvastatin Calcium 40 MG capsule sprinkle Take 1 tablet by mouth. Discontinu ed(Entered in Error) acetaminophen (Tylenol Extra Strength) 500 MG tablet Take 1 tablet by mouth as needed. Discontinu ed(Stop Taking at Discharge) traMADol (Ultram) 50 MG tablet Take 1-2 tablets by mouth every 6 hours as needed for severe pain. 11/19/19 25 Discontinu ed(Stop Taking at Discharge) Memantine HCl ER 28 MG capsule sustained-rele ase 24 hr 1 capsule 1 (one) time each day at the same time. 12/18/19 25 Discontinu ed(Entered in Error) HYDROcodone-ac etaminophen (Lebec) 5-325 MG tablet Take 1 tablet by mouth every 6 hours as needed for severe pain. 30 tablet 03/14/20 25 025 Discontinu ed(Stop Taking at Discharge) oxyCODONE (Roxicodone) 5 MG immediate release tablet Take 1 tablet by mouth every 6 hours as needed for severe pain for up to 8 days. 30 tablet 03/15/20 25 025 tranexamic acid (Lysteda) 650 MG tablet tablet Take 1 tablet by mouth 3 times a day for 8 doses. 8 tablet 03/15/20 25 025 cefadroxil (Duricef) 500 MG capsuleIndicat ions:Arthritis of left hip Take 1 capsule by mouth 2 times a day for 7 days. To prevent post-op infection 14 capsule 03/15/20 025 Active Problems Problem Noted Date Diagnosed Date Arthritis of left hip 02/03/2025 Encounters Date Type Department Care Team Description 03/18/2025 Telephone Medical Office Building Surgery [facility] [address], [address] [place] [address] Raymond Mclean MD HCN - Patient Message 03/14/2025 7:34 AM EDT Anesthesia Event [facility] Operating Room [address] [place] [address] Justus [facility] REPRODUCER 03/14/2025 7:30 AM EDT - 03/14/2025 9:55 AM EDT Surgery [facility] S Operating Room [address] [place] [address] Raymond Mclean MD ARTHROPLASTY, HIP, TOTAL, ANTERIOR APPROACH [84629 (CPT )] 03/14/2025 5:32 AM EDT - 03/15/2025 12:57 PM EDT Hospital Encounter [facility] Inpatient [address] [place] [address] Raymond Mclean MD Arthritis of left hip Discharge Disposition: Home or Self Care 03/14/2025 Travel 02/25/2025 10:15 AM EDT Pre-Admission Testing [facility] Anesthesia [address] [place] [address] Preop examination (Primary Dx) 02/25/2025 Orders Only Medical Office Building Surgery Spine & Joint [address], [address] [place] [address] Raymond Mclean MD S/P total left hip arthroplasty (Primary Dx) 02/25/2025 Telephone Medical Office Building Surgery Sp[facility] [address], [address] [place] [address] Raymond Mclean MD HCN - Patient Message 02/25/2025 Travel 02/03/2025 9:17 AM EDT - 02/03/2025 11:59 PM EDT Hospital Encounter Medical Office Building Radiology [address] [place] [address] Hip pain, left; Arthritis of left hip Discharge Disposition: Home or Self Care 02/03/2025 8:10 AM EDT Office Visit Medical Office Building Surgery Sp[facility] [address], [address] [place] [address] Raymond Mclean MD Hip pain, left (Primary Dx); Arthritis of left hip; Abnormal finding of blood chemistry, unspecified 02/03/2025 8:00 AM EDT - 02/03/2025 9:16 AM EDT Hospital Encounter Medical Office Building Radiology [address] [place] [address] Hip pain, left Discharge Disposition: Home or Self Care 02/03/2025 Travel 01/31/2025 Orders Only External Location [address] [place] [address] Raymond Puckett MD 01/31/2025 Orders Only External Location [address] [place] [address] Raymond Puckett MD 01/31/2025 Orders Only External Location [address] [place] [address] Raymond Puckett MD 01/31/2025 Community Orders Community Practice [address] [place] [address] Raymond Puckett MD Sacro ilial pain (Primary Dx) from Last 3 Months Family History Medical History Relation Name Comments Anesthesia problems Neg Hx Malig Hyperthermia Neg Hx Social History Tobacco Use Types Packs/Day Years [...] on file Sexual Orientation Not on file Last Filed Vital Signs Vital Sign Reading [...] Mass Index 26.01 03/14/2025 6:42 AM EDT Plan of Treatment Upcoming Encounters Date Type Department Care Team (Late st Contact Info) Description 03/31/2025 10:00 AM EDT Office Visit Medical Office Building Surgery Sp[facility] [address], [address] [place] [address] Irene Good PA [address] [place] [address] 04/28/2025 10:50 AM EDT Office Visit Medical Office Building Surgery [facility] [address], [address] [place] [address] Raymond Mclean MD [address] [place] [address] Health Maintenance Due Date Last Done Comments [facility]-Depression Screening 1945 [facility]-Medicare Annual Wellness (AWV) 1945 [facility]-/Child/Adol SDOH Screenings 1944 [facility]- SDOH Screenings 1962 [facility]-Adult SDOH Screenings 1962 [facility]-Pneumococcal Vaccine: 50+ Years (2 of 2 - PCV) 07/12/2017 07/12/2016 [facility]-DTaP,Tdap,and Td Vaccines (1 - Tdap) 06/15/2020 06/14/2020 [facility]-Zoster Vaccines (3 of 3) 05/01/2021 03/06/2021, 11/29/2011 [facility]-[id number]-80 Vaccine (6 - season) 2024 07/10/2022, 01/21/2022, 06/20/2021, Additional history exists [facility]-Influenza Vaccine (#1) 05/02/202505/14, 06/04/2023, 07/11/2021, Additional history exists [facility]-Hepatitis A Vaccines Aged Out 02/11/2013, 03/2012 No longer eligible based on patient's age to complete this topic [facility]-RSV Vaccine: 60+ Years or Completed 05/05/2024 [facility]-Obesity Intervention Completed 02/03/2025, 12/2024 HPV Vaccines Aged Out No longer eligi ble based on patient's age to complete this topic [facility]-HIB Vaccines Aged Out No longer e ligible based on patient's age to complete this topic [facility]-IPV Vaccines Aged Out No longer e ligible based on patient's age to complete this topic [facility]-Rotavirus Vaccines Aged Out No lo nger eligible based on patient's age to complete this topic Goals Goal Patient Goal Type Associated Problems Recent Progress Patient-Stated? Author Autogenerat ed Goal Care Plan Autogenerated Problem No [employer] Implanted Type Area Maori Physiotherapist Device Identifier Shelf Expiration Date Model / Serial / Lot Chg Shell R3 3 Hole Acet 54mm - [id number] Implanted:Qty: 1 on 03/14/2025 by Raymond Mclean MD at [facility] Hip Left: Hip [employer]-[id number] 06/08/2034 [id number] / / [id number] Chg Head Oxinium Fem 08/14 28m - [id number] Implanted:Qty: 1 on 03/14/2025 by Raymond Mclean MD at [facility] Hip Left: Hip [employer]-[id number] 10/24/2034 [id number] / / [id number] Liner Or3o Dual Mbility 42 54 - [id number] Implanted:Qty: 1 on 03/14/2025 by Raymond Mclean MD at [facility] Liner Left: Hip [employer]-[id number] 11/17/2034 [id number] / / [id number] Liner Or3o Dual Mbility Xlpe 28 42 - [id number] Implanted:Qty: 1 on 03/14/2025 by Raymond Mclean MD at [facility] Liner Left: Hip [employer]-[id number] 11/04/2034 [id number] / / [id number] Chg Screw Ref Spher Head 25mm - [id number] Implanted:Qty: 1 on 03/14/2025 by Raymond Mclean MD at [facility] Screw Left: Hip [employer]-[id number] 11/03/2034 [id number] / / [id number] Chg Screw Ref Spher Head 35mm - [id number] Implanted:Qty: 1 on 03/14/2025 by Raymond Mclean MD at [facility] Screw Left: Hip [employer]-[id number] 10/27/2034 [id number] / / [id number] Polarstem Cementless Lat Tiha - [id number] Implanted:Qty: 1 on 03/14/2025 by Raymond Mclean MD at [facility] Stem Left: Hip [employer]-[id number] 03/03/2031 [id number] / / [id number] Procedures Procedure Name Priority Date/Time Associated Diagnosis [...] 8:06 AM EDT Arthritis of left hip PB ANESTHESIA PLACEHOLDER Routine 03/14/2025 7:41 AM EDT IL AN ELECTIVE ENDOTRACHEAL AIRWAY Routine 03/14/2025 7:41 AM EDT IL TOTAL HIP ARTHROPLASTY 03/14/2025 7:19 AM EDT Arthritis of left hip CBC W/O DIFFERENTIAL Routine 02/25/2025 11:41 AM EDT Hip pain, left Arthritis of left hip BASIC METABOLIC PANEL, PLASMA Routine 02/25/2025 11:41 AM EDT Hip pain, left Arthritis of left hip ALBUMIN, PLASMA Routine 02/25/2025 11:41 AM EDT Hip pain, left Arthritis of left hip HEMOGLOBIN A1C Routine 02/25/2025 11:41 AM EDT Hip pain, left Arthritis of left hip Abnormal finding of blood chemistry, unspecified XR LUMBAR SPINE 2 OR 3 VIEWS Routine 02/03/2025 9:30 AM EDT Hip pain, left Arthritis of left hip XR HIP LEFT 2 OR 3 VIEWS Routine 02/03/2025 8:08 AM EDT Hip pain, left XR MSK OUTSIDE IMAGES 01/31/2025 4:27 PM EDT XR MSK OUTSIDE IMAGES 01/31/2025 4:27 PM EDT XR OUTSIDE IMAGES 01/31/2025 4:2 7 PM EDT from Last 3 Months Results * (ABNORMAL) Basic metabolic panel (03/15/2025 3:04 AM EDT) Only the most recent of2 resultswithin the time period is included. Glucose, Plasma 146(H) 74 - 99 mg/dL 03/15/2025 3:45 AM EDT [facility] BUN, Plasma 35(H) 8 - 23 mg/dL 03/15/2025 3:45 AM EDT [facility] Creatinine, Plasma 1.79(H) 0.70 - 1.20 mg/dL 03/15/2025 3:45 AM EDT [facility] BUN/Creatinine Ratio 20 03/15/2025 3:45 AM EDT [facility] Sodium, Plasma 137 136 - 145 mmol/L 03/15/2025 3:45 AM EDT [facility] Potassium, Plasma 4.6 3.6 - 4.9 mmol/L 03/15/2025 3:45 AM EDT [facility] Chloride, Plasma 107 97 - 107 mmol/L 03/15/2025 3:45 AM EDT [facility] CO2, Plasma 21(L) 22 - 29 mmol/L 03/15/2025 3:45 AM EDT [facility] Anion Gap 9 6 - 16 mmol/L 03/15/2025 3:45 AM EDT [facility] Total Calcium, Plasma 8.5(L) 8.9 - 10.2 mg/dL 03/15/2025 3:45 AM EDT [facility] eGFRcr 37.8 mL/min/1.7 3m*2 03/15/2025 3:45 AM EDT [facility] Comment:Reported eGFRcr in m L/min/1.73m2 is based the CKD-EPI 2020 equation that does not use a race coefficient. Blood Venous blood specimen / Unknown Venipuncture / Unknown 03/15/2025 3:04 AM EDT 03/15/2025 3:13 AM EDT us Veena Finnegan REPRODUCER LAB BLOOD ORDERABLES Final Re sult [facility] [address] [place] [address] * XR Hip Left 2 or 3 Views (03/14/2025 9:44 AM EDT) Only the most recent of2 resultswithin the time period is included. Anatomical Region Laterality Modality Lower Extremities, Hip [...] AM EDT) Case Report Surgical Pathology Case: [id number] Authorizing Provider: Raymond Mclean MD Collected: 03/14/2025 0806 Ordering Location: [facility] Operating Room Received: 03/14/2025 1037 Pathologist: Marcus Santana MD Specimen: Hip, Left, left femoral head 03/14/2025 2:40 PM EDT [facility] Final Diagnosis A. LEFT FEMORAL HEAD, TOTAL HIP ARTHROPLASTY: - DEGENERATIVE JOINT DISEASE, GROSS DIAGNOSIS ONLY 03/14/2025 2:40 PM EDT [facility] at 1440 EDT Clinical Information Arthritis of left hip 03/14/2025 2:40 PM EDT [facility] Gross Description A. LEFT FEMORAL [...] Carmella Hunter [place] 03/14/2025 2:40 PM EDT [facility] Note: A resident was involved in the service. I attest I examined the relevant preparations for the specimens and confirmed the diagnosis or interpretation. 03/14/2025 2:40 PM EDT [facility] Bone Left hip region structure / Unknown 03/14/2025 8:06 AM EDT 03/14/2025 10:37 AM EDT Comment:Pre-op diagnosis: Arthritis of left hip [M16.12] us Raymond Mclean MD LAB PATHOLOGY ORDERABLES Fin al Result [facility] [address] [place] [address] * [place] AN ELECTIVE ENDOTRACHEAL AIRWAY, PB ANESTHESIA PLACEHOLDER (03/14/2025 7:41 AM EDT) Narrative Masoud Lamar CRNA - 03/14/2025 7:41 AM EDT Masoud Lamar CRNA 03/14/2025 8:12 AM Airway Date/Time: 03/14/2025 7:41 AM Reason: elective Airway not difficult General Information and Staff Patient location during procedure: OR DRUG COUNSELOR: Masoud Lamar CRNA Performed: [place]TE Patient Condition Indications for airway management: anesthesia [...] Additional Comments Atraumatic. No change to dentition. us Justus Taylor MD ANESTHESIA ORDERABLES Final R esult * CBC W/O Differential (02/25/2025 11:41 AM EDT) WBC Count 5.19 3.70 - 10.30 10*3/uL LAB HEMATOLOGY METHOD 02/25/2025 2:18 PM EDT [facility] RBC Count 5.31 4.60 - 6.10 10*6/uL LAB HEMATOLOGY METHOD 02/25/2025 2:18 PM EDT [facility] HGB 16.6 13.7 - 17.5 g/dL LAB HEMATOLOGY METHOD 02/25/2025 2:18 PM EDT [facility] HCT 50.6 40.0 - 51.0 % LAB HEMATOLOGY METHOD 02/25/2025 2:18 PM EDT [facility] Platelet Count 175 155 - 369 10*3/uL LAB HEMATOLOGY METHOD 02/25/2025 2:18 PM EDT [facility] MCV 95 79 - 98 fL LAB HEMATOLOGY METHOD 02/25/2025 2:18 PM EDT [facility] MCH 31.3 26.0 - 32.0 pg LAB HEMATOLOGY METHOD 02/25/2025 2:18 PM EDT [facility] MCHC 32.8 30.7 - 35.5 g/dL LAB HEMATOLOGY METHOD 02/25/2025 2:18 PM EDT [facility] RDW 14.3 11.5 - 14.5 % LAB HEMATOLOGY METHOD 02/25/2025 2:18 PM EDT [facility] MPV 11.2 8.8 - 12.5 fL LAB HEMATOLOGY METHOD 02/25/2025 2:18 PM EDT [facility] nRBC 0.0 <=0.0 per 100 WBCs LAB HEMATOLOGY METHOD 02/25/2025 2:18 PM EDT [facility] Blood Venous blood specimen / Unknown Venipuncture / Unknown 02/25/2025 11:41 AM EDT 02/25/2025 11:41 AM EDT us Raymond Mclean MD LAB BLOOD ORDERABLES Final R esult Performing Organization Address [facility] Co de Phone Number [facility] [address] [place] [address] * Hemoglobin A1c (02/25/2025 11:41 AM EDT) Hemoglobin A1c 5.6 <5.7 % 02/25/2025 5:57 PM EDT [facility] Blood Venous blood specimen / Unknown Venipuncture / Unknown 02/25/2025 11:41 AM EDT 02/25/2025 11:41 AM EDT Narrative [facility] - 02/25/2025 5:57 PM EDT HA1C Interpretive Data: Diagnosis of Diabetes: Diabetic > or = 6.5% Pre-diabetic 5.7 to 6.4% Non-diabetic < or = 5.6% Glycemic Targets for Type I and Type II Diabetics: Non- Adults <7.0% Adults <6.0% Children and Adolescents <7.5% Source: [place] [employer]. Standards of medical care in diabetes,2017. Diabetes Care.2017:40 (suppl 1):S1-S135. us Raymond Mclean MD LAB BLOOD ORDERABLES Final R esult Performing Organization Address [facility] Co de Phone Number [facility] [address] [place] [address] * Albumin, Plasma (02/25/2025 11:41 AM EDT) Albumin, Plasma 4.4 3.5 - 5.2 g/dL 02/25/2025 2:37 PM EDT [facility] Blood Venous blood specimen / Unknown Venipuncture / Unknown 02/25/2025 11:41 AM EDT 02/25/2025 11:41 AM EDT us Raymond Mclean MD LAB BLOOD ORDERABLES Final R esult [facility] [address] [place] [address] * XR Lumbar Spine 2 or 3 [...] IMG XR PROCEDURES Final Resu lt * XR OUTSIDE IMAGES (01/31/2025 4:27 PM EDT) Anatomical Region Laterality Modality Radiographic Precious ging 01/31/2025 4:27 PM EDT Raymond Puckett MD IMG XR PROCEDURES Final Resu lt * XR MSK OUTSIDE IMAGES (01/31/2025 4:27 PM EDT) Only the most recent of2 resultswithin the time period is included. Anatomical Region Laterality Modality Radiographic Precious ging 01/31/2025 4:27 PM EDT Raymond Puckett MD IMG XR PROCEDURES Final Resu lt from Last 3 Months Additional Health Concerns Active Problems Noted Date Diagnosed Date Autogenerated Problem 02/03/2025 Insurance MEDICARE [facility] Advance Directives * Full Code (Latest Code Status on File) Date Activated Date Inactivated Comments 03/14/2025 10:39 AM 03/15/2025 2:57 PM Question Answer Comments I have reviewed the capacity from the link above and, if needed, have updated to appropriate status: Yes Care Teams Warehouse Shift Supervisor Relationship Specialty Start Date End Date Raymond Puckett MD [address] [place] [address] PCP - General Internal Medicine 02/03/25
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
--- OUTSIDE RECORDS SUMMARY | 2025-03-25 16:14 | XMS_ITS | Encounter Summary ---
Author Organization [facility] Address [address] [place] [address] Care Team Providers Care Customer Success Specialist Name Role Phone Raymond Puckett MD Primary Care Provider [phone] Reason for Referral * Consultation (Routine) - Authorized Specialty Diagnoses / Procedures Referred By Gerardo [email or web address] Referred To Contact Physical Therapy Diagnoses S/P total left hip arthroplasty Raymond Mclean MD [address] [facility] [address] [place] [address] Phone: tel: fax: Referral ID Status Reason Start Date Expiration Date Visits Requested Visits Authorized [id number] Authorized Consult and Treat 02/25/2025 08/27/2026 10 10 Scheduling Instructions Patient is scheduled for LTH 03/14/25. This order is for scheduling purposes only. Patient will get formal order at discharge. Patient should be scheduled 4-7 days after surgery. Encounter Details Date Type Department Care Team ([facility] st Contact Info) Description 02/25/2025 Orders Only Medical Office Building Surgery Sp[facility] [address] , [address] [place] [address] Raymond Mclean [facility] [address] [facility] [facility] [address] [place] [address] S/P total left hip arthroplasty (Primary Dx) Social History Tobacco Use Types [...] Joint [address], [address] [place] [address] Irene Good PA [address] [place] [address] 04/28/2025 10:50 AM EDT Office Visit Medical Office Building Surgery [facility] [address], [address] [place] [address] Raymond Mclean MD [address] [place] [address] Scheduled Referrals Name Type Priority Associated Diagnoses Orde r Schedule Ambulatory referral to Physical Therapy Outpatient Referral Routine S/P total left hip arthroplasty 1 Occurrences starting 02/25/2025 until 08/29/2026 documented as of this encounter Goals Goal Patient Goal Type Associated Problems Recent Progress Patient-Stated? Author Autogenerat ed Goal Care Plan Autogenerated Problem No Melanie Plummer documented as of this encounter Visit Diagnoses Diagnosis S/P total left hip arthroplasty- Primary documented in this encounter Additional Health Concerns Active Problems Noted Date Diagnosed Date Autogenerated Problem 02/03/2025 Assessment Noted Time A fall risk assessment has been complete d for the patient 02/03/2025 8:14 AM EDT A Body Mass Index follow-up plan has been documented for the patient 02/03/2025 8:42 AM EDT documented as of this encounter Care Teams Customer Success Specialist Relationship Specialty Start Date End Date Raymond Puckett MD [address] [place] [id number] PCP - General Internal Medicine 02/03/25 documented as of this encounter
--- OUTSIDE RECORDS SUMMARY | 2025-03-25 16:14 | XMS_ITS | Encounter Summary ---
Author Organization Healthcare Address [address] [place] [address] Care Team Providers Care Watch Engineer Name Role Phone Raymond Puckett MD Primary Care Provider [phone] Encounter Details Date Type Department Care Team (Late Contact Info) Description 01/31/2025 Orders Only External Location [address] [place] [address] Raymond Puckett MD [address] [place] [id number] Social History Tobacco Use Types Packs/Day Years Used Date Smoking Tobacco: Never Assessed Sex and Gender Information Value Date Recorded Sex Assigned at Not on file Legal Sex Male 8:34 PM EDT Gender Identity Not on file Sexual Orientation Not on file documented as of this encounter Plan of Treatment Upcoming Encounters Date Type Department Care Team ([facility] Contact Info) Description 03/31/2025 10:00 AM EDT Office Visit Medical Office Building Surgery Sp[facility] [address], [address] [place] [address] Irene Good PA [address] [place] [address] 04/28/2025 10:50 AM EDT Office Visit Medical Office Building Surgery [facility] [address], [address] [place] [address] Raymond Mclean MD [address] [place] [address] documented as of this encounter Procedures Procedure Name Priority Date/Time Associated Diagnosis Comments XR [facility] OUTSIDE IMAGES 01/31/2025 4:27 PM EDT documented in this encounter Results * XR [facility]K OUTSIDE IMAGES (01/31/2025 4:27 PM EDT) Anatomical Region Laterality Modality Radiographic Precious ging 01/31/2025 4:27 PM EDT Raymond Puckett MD IMG XR PROCEDURES Final Resu lt documented in this encounter Visit Diagnoses Not on filedocumented in this encounter Care Teams Watch Engineer Relationship Specialty Start Date End Date Raymond Puckett MD [address] [place] [id number] PCP - General Internal Medicine 02/03/25 documented as of this encounter
--- OUTSIDE RECORDS SUMMARY | 2025-03-25 16:14 | XMS_ITS | Data Portability ---
Author Organization [facility] Carmela tony S [place] [facility] Address [address] [place] [address] Care Team Providers Care Pancake Professional Name Role Phone ALYSSAONEYDA Primary Care Provider [phone] VAMSHI ANTHONY Biology Internship PANCHO MARVIN Referring Provider [phone] Assessment Encounter Date Assessment Date Assessment LastModified by Organization Details LastModified Time 10/05/2024 10/05/2024 He will start daily low dose tadalafil (5mg). He was advised to cut 10mg tablets in half for cost effectiveness. 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 He will follow up in 6 months, sooner if needed. [email or web address] Not available 10/07/2024 09:33:42 Plan of Treatment Reminders Order Date Submit Date Provider Last Modified By Organization Details Last Modified Time Details Appointments PROVIDER APPROVED DAK 2024 08:00A Tran ANTHONY MD Not available Not available Not available RECHECK 2024 11:30A Tran UNGER MD Not available Not available Not available Lab None recorded. Referral None recorded. Procedures None recorded. Surgeries None recorded. Imaging None recorded. Medication Orders tadalafil 10 mg tablet 2024 025 NEFTALI [facility], [address] [facility] [address] [facility], [place], [address], 10/05/2024 15:40:54 Patient TargetsNo targets recorded. Patient Instructions Encounter Date Encounter Id Patient Instructions Last Modified By Organization Details Last Modified Time 09/20/2024 [id number] Patient informed he may discontinue wound care, and reminded to follow up with his skin checks. Patient invited to call with any future questions or concerns. [email or web address] Not available 09/20/2024 08:43:54 Reason for Referral None Reported. 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 AJCC: T1, Nx, Mx SOURC E OF SPECI MEN: SKIN, L HELIX CLINI GABRIELA INFOR MATIO N: R/O: SCC Gross Descr iptio n: The speci men consi sted of a israel fragm ent which was trise cted and measu red 10 x 6 x 3 mm. All submi tted in one casse tte. Micro scopi c Descr iptio n: Irreg ular islan ds and nests of cytol ogica lly atypi gabriela kerat inizi ng epith elial cells infil trate the dermi s. FANY TAVERAS MD Alessandra d Out Date: 06/10 11:17 1 Not Available [facility] [address] [place], [address], 06/10/2024 11:18:14 06/08/2006/08/2024 danielle wet prep DANIELLE Prep positi ve Not Available [facility] [address], [address], 06/08/2024 09:59:34 07/02/2007/02/2024 TESTO STERO NE, TOTAL testosterone , total 736 NG/dL 193-74 0 normal Refer ence range is for age 50 years and over. Not Available [facility] [address] [place], [address], 07/02/2024 11:02:21 07/02/20 24 07/07/2024 TESTO STERO NE, FREE testosterone , free 99.4 pg/mL 6.0-73 .0 high MDF med fusio n [address] [facility] [address] [facility] [address] [phone] Omer Stewart MD, PhD Not Available [facility] [address] [place], [address], 07/07/2024 16:30:22 Result Notes None recorded. Problems Name Problem SNOMED Code Status Onset Date Resolution Date Notes Provider Name and Address Organization Details Recorded Time Low back pain 241309685 Active 2015 Provider: Justo Lunsford: Active Not Available [facility] 6 09:29:34 Spinal stenosis of lumbar region 77374438 Active 2015 From Automated Load;Prov ider: Dimas Umana;St atus: Active Not Available [facility] 6 09:29:34 Degenerat ion of lumbar intervert ebral disc 30297862 Active 2015 From Automated Load;Prov ider: Dimas Umana;St atus: Active Not Available [facility] 6 09:29:34 Full thickness rotator cuff tear 148507721 Active 2015 From Automated Load;Prov ider: Pilo Richard;St atus: Active Not Available [facility] 6 09:29:34 Shoulder joint pain 957399089 Active 2015 From Automated Load;Prov ider: Pilo Richard;St atus: Active Not Available [facility] 6 09:29:34 Lumbar spondylol isthesis 31017365448 9102 Active 2019 LOYDA HERNANDEZ PA-C [address] [place], [address] , [facility] 0 10:47:46 Erectile dysfuncti on 529690871 Active 2023 SATHISH UNGER JR, MD [address] [place], [address] , [facility] 4 08:06:00 Primary erectile dysfuncti on 439957518 Active 2023 [place] [address] [place] [address], [address] , [facility] 4 08:06:01 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 Procedures Surgical History Date Name Laterality Status Provider Name and Address Organization Details Recorded Time 06/08/20 24 DAK - Cryo AK completed Stacey Tapia [facility] 06/08/2024 10:42:00 06/08/20 24 DAK - Biopsy, Tangential completed Stacey Tapia [facility] 06/08/2024 10:19:58 05/24/20 24 Lumbar Epidural Steroid Injection - Gloria completed CANDI FERNÁNDEZ MD [address] [place], [address], [facility] 05/24/2024 15:02:03 07/04/20 23 Destruction Premalignant Lesion(s) [facility] 07/[facility]23 08:25:33 procedure on retina completed [facility] 02/21/2020 10:00:57 hernia repair completed [facility] 02/21/2020 10:01:06 Unlisted px hands/fingers completed [facility] 02/21/2020 10:01:14 Imaging Results None recorded. Procedure Notes None recorded. Medical Equipment None Reported. Allergies Allergen ID Allergen Name Allergen Category Reaction Reaction Severity Criticality Documentation Date Start Date Code Code System Note Provider Name and Address Organization Details Recorded Time 050516 hydrocodo ne bitartrat e medicatio n Not available Not available Not available 07/26/20162015 10662 9 RxNorm Comme nt: Creat ed By: Dorian Bruno remelquiades d Date: 016 2:33: 08 PM; Not Available [facility] 6 04:40:36 305700 acetamino phen / oxycodone medicatio n Not available Not available Not available 07/26/20162015 32605 3 RxNorm Comme nt: Creat ed By: Soledad Thayer ca;Cr eated Date: 2015 12:51 :50 PM; Not Available [facility] 6 09:57:49 Medications Name Sig Start Date Stop Date Status Note LastModified by Organization Details LastModified Time bystolic 5 mg tabs 02/20 completed Not Available Not Available Not Available prednisol one acetate 1 % susp 03/24 completed Not Available Not Available Not Available azithromy federico 250 mg tabs 02/20 completed Not Available Not Available Not Available rosuvasta tin calcium 40 mg tabs 02/20 completed Not Available Not Available Not Available prednison e 20 mg tabs 02/20 completed Not Available Not Available Not Available namzaric cap 28-10mg 03/24 completed Not Available Not Available Not Available triamcino lone acetonide 0.5 % oint 03/24 completed Not Available Not Available Not Available ciproflox acin hydrochlo ride 500 mg tabs 03/24 completed Not Available Not Available Not Available tamsulosi n hydrochlo ride 0.4 mg caps 03/24 completed Not Available Not Available Not Available doxycycli ne hyclate 100 mg capsule TAKE ONE CAPSULE BY MOUTH TWICE DAILY FOR 7 DAYS -- FINISH ALL MEDICINE -- 04/01 completed DC Not Available Not Available Not Available cetirizin e 10 mg tablet Take 1 tablet every day by oral route. active Not Available Not Available No t Available azithromy federico 250 mg tablet TAKE 2 TABLETS BY MOUTH ON DAY 1, THEN TAKE 1 TABLET DAILY ON DAYS 2-5 03/24 completed Not Available Not Available Not Available valacyclo vir 1 gram tablet TAKE ONE TABLET BY MOUTH THREE TIMES DAILY NEEDED active Not taking Not Available Not Available Not Available prednison e 20 mg tablet TAKE ONE TABLET BY MOUTH ONCE DAILY FOR 5 DAYS -- FINISH ALL MEDICINE -- --TAKE WITH FOOD-- 04/01 completed DC Not Available Not Available Not Available fluoroura cil 5 % topical cream APPLY A SUFFICIE NT AMOUNT TO COVER THE LESIONS IN THE AFFECTED AREAS BY TOPICAL ROUTE TWICE DAILY FOR 10-14 DAYS active Not Available Not Available No t Available clobetaso l 0.05 % topical cream APPLY TOPICALL Y TO THE AFFECTED AREA(S) TWICE DAILY FOR 7 DAYS 04/01 completed Not Available Not Available Not Available nifedipin e ER 30 mg tablet,ex tended release Take 1 tablet every day by oral route. active Not Available Not Available No t Available tramadol 50 mg tablet TAKE ONE TABLET BY MOUTH EVERY 8 HOURS NEEDED FOR PAIN active Not Available Not Available No t Available triamcino lone acetonide 0.1 % topical cream apply a thin layer topicall y TO THE affected area(s) TWICE DAILY active Not taking Not Available Not Available Not Available levothyro xine 75 mcg tablet Daily 02/20 completed Frequenc y: daily;Me dication Descript ion: levothyr oxine; Dosage:1 ; Route:or al; refills: 0 Not Available Not Available Not Available levothyro xine 100 mcg tablet TAKE ONE TABLET BY MOUTH EVERY DAY active Not Available Not Available No t Available terbinafi ne HCl 250 mg tablet TAKE ONE TABLET BY MOUTH EVERY DAY FOR 14 DAYS active Not Available Not Available No t Available amoxicill in 875 mg tablet TAKE ONE TABLET BY MOUTH EVERY TWELVE HOURS -- FINISH ALL MEDICINE -- 03/24 completed Not Available Not Available Not Available methocarb alfonso 750 mg tablet TAKE ONE TABLET BY MOUTH THREE TIMES DAILY FOR 7 DAYS MAY CAUSE DROWSINE SS 04/01 completed Not Available Not Available Not Available nifedipin e ER 60 mg tablet,ex tended release 24 hr TAKE ONE TABLET BY MOUTH EVERY DAY active Not taking Not Available Not Available Not Available cephalexi n 500 mg capsule TAKE ONE CAPSULE BY MOUTH THREE TIMES DAILY FOR 7 DAYS -- FINISH ALL MEDICINE -- active Not Available Not Available No t Available clotrimaz ole-betam ethasone 1 %-0.05 % topical cream APPLY TOPICALL Y TO THE AFFECTED AREA(S) TWICE DAILY FOR FOURTEEN DAYS 04/01 completed Not Available Not Available Not Available losartan 25 mg tablet Take 1 tablet every day by oral route. active Not Available Not Available No t Available hydrochlo rothiazid e 12.5 mg capsule TAKE ONE CAPSULE BY MOUTH EVERY DAY active Takes tab Not Available Not Available Not Available triamcino lone acetonide 0.025 % topical ointment APPLY TOPICALL Y TO THE AFFECTED AREA(S) TWICE DAILY FOR 5-7 DAYS 03/24 completed Not Available Not Available Not Available omeprazol e 20 mg capsule,d elayed release TAKE ONE CAPSULE BY MOUTH TWICE DAILY active Not taking Not Available Not Available Not Available diclofena c sodium 75 mg tablet,de layed release Take 1 tablet as needed by oral route. active Not Available Not Available No t Available lotepredn ol etabonate 0.5 % eye drops,gaudencio pension INSTILL ONE DROP IN EACH EYE FOUR TIMES DAILY FOR 2 WEEKS THEN disconti nue; restart AFTER 2 WEEKS if needed 03/24 completed Not Available Not Available Not Available ibuprofen 600 mg tablet TAKE ONE TABLET BY MOUTH EVERY 6 HOURS NEEDED FOR PAIN --TAKE WITH FOOD-- 03/24 completed Not Available Not Available Not Available celecoxib 100 mg capsule Take 1 capsule every day by oral route for 90 days. active Not Available Not Available No t Available ketoconaz ole 2 % topical cream APPLY TO BACK TWICE DAILY UNTIL CLEAR active Not Available Not Available No t Available losartan 100 mg tablet TAKE 1/2 TABLET BY MOUTH EVERY DAY FOR blood pressure active Not taking Not Available Not Available Not Available gentamici n 0.1 % topical ointment APPLY A SMALL AMOUNT TO THE AFFECTED AREA TOPICALL Y TWICE DAILY FOR 2 WEEKS THEN SWITCH TO VASELINE UNTIL HEALED active Not Available Not Available No t Available testoster one 1 % (50 mg/5 gram) transderm al gel packet apply 1 PACKET topicall y EVERY DAY DIRECTED 2024 active Not Available Not Available Not Avai lable Tylenol Extra Strength 500 mg tablet Take 1 tablet every day by oral route in the morning. active Not Available Not Available No t Available cyclobenz aprine 5 mg tablet Take 1 tablet 3 times a day by oral route as needed. 03/24 completed Not Available Not Available Not Available rosuvasta tin 40 mg tablet TAKE ONE TABLET BY MOUTH EVERY DAY active Not Available Not Available No t Available vardenafi l 20 mg tablet TAKE 1 TABLET BY MOUTH ONCE DAILY active Not Available Not Available No t Available tadalafil 5 mg tablet Take 2 tablets every day by oral route for 90 days. 2024 active Not Available Not Available Not Avai lable tadalafil 10 mg tablet TAKE ONE TABLET BY MOUTH EVERY DAY active Not Available Not Available No t Available aspirin active Not Available Not Avail able Not Available Norvasc 03/24 completed Medicati on Descript ion: amlodipi ne; Route:or al; refills: 0 Not Available Not Available Not Available Tylenol As needed 03/24 completed Frequenc y: prn;Medi cation Descript ion: acetamin ophen; Route:or al; refills: 0 Not Available Not Available Not Available Centrum active Not Available Not Avail able Not Available Crestor 03/24 completed Medicati on Descript ion: rosuvast atin; Route:or al; refills: 0 Not Available Not Available Not Available hydrochlo rothiazid e 12.5 mg tablet TAKE ONE TABLET BY MOUTH EVERY DAY FOR fluid active Not Available Not Available No t Available nebivolol 5 mg tablet active Not Available Not Available Not Available levothyro xine 100 mcg capsule Take 1 capsule every day by oral route. 03/24 completed Not Available Not Available Not Available Probiotic active Not Available Not Ene ilable Not Available Namzaric 28 mg-10 mg capsule sprinkle, extended release active Not Available Not Available Not Available diclofena c 2.5 % topical cream compoundi ng kit active Not Available Not Available Not Available Vitals Date Recorded Body height Body mass index (BMI) Body weight Provider Name and Address Organization Details Last Updated DateTime 09/16/2024 172.72 cm 27.4 kg/m2 21299.63 g Maritza Luis [facility] 09/16/2024 08:15:47 Date Recorded Body height Body mass index (BMI) Body weight Provider Name and Address Organization Details Last Updated DateTime 10/04/2024 172.72 cm 27.4 kg/m2 57544.63 g Carmella Solorio [facility] 10/04/2024 13:34:29 Date Recorded Body height Body mass index (BMI) Body weight Provider Name and Address Organization Details Last Updated DateTime 10/05/2024 172.72 cm 27.4 kg/m2 49700.63 g Rony Chana [facility] 10/05/2024 15:13:19 Date Recorded Body height Body mass index (BMI) Body weight Provider Name and Address Organization Details Last Updated DateTime 07/08/2024 172.72 cm 27.4 kg/m2 67954.63 g Maritza Smith [facility] 07/08/2024 09:40:13 Social History Question Answer Notes LastModified by Organizat ion Details LastModified Time Tobacco Smoking Status Former Smoker cigarettes Maritza Luis [facility] 04/01/2024 09:45:18 When Did You Quit Smoking? 16+yearsashley bearden 1968 [email or web address] Information not available 04/01/2024 What Was The Date Of Your Most Recent Tobacco Screening? 10/05/2024 [email or web address] Information not available 10/05/2024 What Is Your Relationship Status? Information not available 04/01/2024 How Much Tobacco Do You Smoke? No [email or web address] Information not available 04/01/2024 Has Tobacco Cessation Counseling Been Provided? No [email or web address] Information not available 04/01/2024 Sex: Male Functional Status Question Answer Note LastModified by Organizat ion Details LastModified Time Do you use any illicit or recreational drugs? No Information not available 04/01/2024 Do you or have you ever used any other forms of tobacco or nicotine? No [email or web address] Information not available 04/01/2024 What is your level of alcohol consumption? Occasional vodka/ gin; 2 per night [email or web address] Information not available 04/01/2024 Are you currently employed? 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 Family History Relationship Description Onset Age of this Age Resolved Age Notes LastModified by Organization Details LastModified Time Father Family history of malignant neoplasm throat [email or web address] Not available 2023 09:43:55 Medical History Condition Response Arthritis Y Hypertension Y Sleep Apnea Y Thyroid Disorder Y High Cholesterol Y Past Encounters Encounter ID Performer Location Encounter Start Date Encounter Closed Date Diagnosis/Indication Diagnosis SNOMED-CT Code Diagnosis ICD10 Code Diagnosis Note [id number] AFSANEH LUNSFORD MD [facility] [address] [place] [address] 02/21/2020 09:41:10 02/21/2020 13:55:24 Lumbar spondylolisthesis 8213745641 39261 M43.16 [id number] LOYDA HERNANDEZ PA-C [facility] [address] [place] [address] 05/29/2020 09:04:02 05/29/2020 11:04:30 Lumbar spondylolisthesis 5750972983 28947 M43.16 Lumbar MRI on 01/27/2020 At [facility] which is loaded onto our PACS system demonstrat es diffuse degenerati ve changes with severe right L3-4 lateral recess stenosis and L4-5 spondyloli sthesis with severe central stenosis. Flexion-ex tension x-rays performed at [facility] on 05/29/2020 show mild instabilit y at L4-5, 7 mm in flexion 5 mm in extension. Overall the patient is doing well with his activity tolerance. He does have some mild low back pain but is able to tolerate all activities and hobbies without significan t pain. He does not have any radicular symptoms. We will continue to monitor his lumbar spine issues for now. Recommende d that he take a all a day from the diclofenac to see if his lower extremity swelling improves. If it does not improve within the next week I recommende d that he follow-up with his primary care doctor for any further workup. I will also prescribe the patient cyclobenza chiquis 5 mg by mouth 3 times a day when necessary for spasm. We will have the patient back in 3 months for another recheck. He understand s if his symptoms get significan tly worse in the meantime he can contact our office for a earlier appointmen t. [id number] JODIE BURRIS [facility]N [facility] [address] [place] [address] 03/24/2023 13:06:53 03/25/2023 04:22:35 Lumbar spondylosis 986103920 M47.896 Lumbar radiculopathy 128 036326 M54.16 Lumbar spondylolisthesis 1168212528 76089 M43.16 [id number] AFSANEH LUNSFORD MD [facility] [address] [place] [address] 04/21/2023 10:38:20 04/22/2023 04:30:12 Lumbar spondylolisthesis 0978079731 23138 M43.16 [id number] VAMSHI ANTHONY MD [address] [address] [place] [address] 07/04/2023 08:14:33 07/04/2023 08:40:08 History of malignant neoplasm of skin 064840749 Z85.828 - No evidence of recurrence today- Call with any worrisome lesions or if treated lesions return- Return at regular intervals for skin exam as recommende d Multiple b enign melanocytic nevi 395141173 D22.5 - Benign lesion seen on exam today- SPF 30 or higher broad-spec trum sunscreen recommende d with re-applica tion every 2 hours- Discussed sun protection measures, including wide-brimm ed hat, sun-protec tive clothing, and avoidance of sun during peak hours of 10am-4pm- Avoid tanning beds as these can increase the chances of all 3 types of skin cancer- Instructed to monitor for changes and to call us for appointmen t with any changing or worrisome lesions Seborrheic keratosis 394 105354 L82.1 - Benign overgrowth s of skin- 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 DANIELLE performed and negative. RF given for triamcinol one. Steroid se Actinic keratosis [address] No wound care given. fup with changes or concerns [id number] VAMSHI ANTHONY MD [address] [place] [address] 03/31/2024 10:08:55 03/31/2024 15:14:44 Actinic keratosis L57.0 The nature of the diagnosis was discussed. Recommend rx fluorourac il 5% topical cream BID to face x 10-14 days. Must stay out of the sun while treating. GoodRx card given.Fup with change or concerns [id number] MD SILVINO DO JR, [facility] [address] [place] [address] 04/01/2024 09:22:05 04/01/2024 09:58:54 Primary erectile dysfunction 070941237 N52.9 Erectile dysfunction 860 118472 F52.21 [id number] CANDI FERNÁNDEZ MD [facility] [address] [place] [address] 05/18/2024 08:27:19 05/18/2024 13:39:29 Degeneration of lumbar intervertebral disc 67115475 M51.36 Lumbar spondylosis 02577 0009 M47.816 Spinal geo nosis of lumbar region 91330158 M48.062 [id number] MD SILVINO DO JR, [facility] [address] [place] [address] 05/20/2024 11:25:12 05/25/2024 04:11:15 Male hypogonadism 82103435 E29.1 [id number] CANDI FERNÁNDEZ MD [facility] PROFESSIO NAL CHARGES [address] [facility], [address] [place] [address] 05/24/2024 13:46:59 05/24/2024 16:08:05 Lumbar radiculopathy 572310473 M54.16 [id number] ELENI BALES PA-C [address] [address] 06/08/2024 09:01:20 06/08/2024 11:49:28 Neoplasm of uncertain behavior of skin 61931528 D48.5 L helix - 8mm erythemato us papule with central crust r/o SCC Actinic keratosis 007 L57.0 Actinic keratoses are precancero us lesions that may progress to squamous cell carcinoma if untreated. UV light and genetics may increase risk. Treated lesions should blister, scab over, and heal within a few weeks. If treated lesion(s) does not resolve within 1-2 months, patient agrees to follow up for re-evaluat ion. Tinea corporis 37179127 B35.4 Pt reports recent trip to [place] and [place], returned home 5 days ago.Rash appeared shortly after, reports it has been there about 2 days DANIELLE: positive Discussed fungal etiology of the condition. Rec to start soaks with white vinegar/wa ter mix (1:1) daily.Will start Rx Terbinafin e 250 QD x 2 weeksWill start Rx Ketoconazo le cream apply to back BID until clear Interactio ns were discussedP t will monitor BP and heart rate liberally while on oral terbinafin e Follow up in 4 weeksIf not cleared will consider another round of terbinafin e Franklin Tomlin MD was consulted on the patient. [id number] VAMSHI ANTHONY MD [address] [address] 07/08/2024 07:17:54 07/08/2024 07:50:53 History of malignant neoplasm of skin 715239092 Z85.828 L90.5 - No evidence of recurrence today - Call with any worrisome lesions or if treated lesions return - Return at regular intervals for skin exam as recommende d Multiple b enign melanocytic nevi 032383269 D22.5 - Benign lesions seen on exam today- SPF 30 or higher broad-spec trum sunscreen recommende d with re-applica tion every 2 hours- Discussed sun protection measures, including wide-brimm ed hat, sun-protec tive clothing, and avoidance of sun during peak hours of 10am-4pm- Instructed to monitor for changes and to call us for appointmen t with any changing or worrisome lesions Seborrheic keratosis [id number] L82.1 - Benign overgrowth s of skin - Hereditary Senile angioma [id number] I 78.1 - Benign blood vessel growths - Hereditary Solar lentigo [id number] L 81.4 - Benign brown spots - Sun-induce d 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 Pt has mohs scheduled 09/06FUP with changes or concerns. Actinic keratosis 007 L57.0 The condition was discussed. Recommend treating both arms from knuckles to right above elbows with fluorourac il.Pt reports having enough at home.FUP with changes or concerns. Tinea corporis [id number] B35.4 The condition is improving. Cont applying keto cream.FUP with changes or concerns. [id number] MD SILVINO DO JR, [facility] [address] [place], [place] [id number] 07/08/2024 08:48:49 07/11/2024 04:10:46 Primary erectile dysfunction [id number] N52.9 Male hypogonadism 500154 06 E29.1 [id number] CHIVO ELY AN, DO [facility] [address] [place] [address] 08/16/2024 07:34:36 08/18/2024 11:32:22 [id number] MD SILVINO DO JR, [facility] [address] [address] 09/16/2024 08:15:13 09/16/2024 15:04:10 Erectile dysfunction [id number] F52.21 Male hypogonadism 373938 06 E29.1 [id number] CHIVO MONG AN, DO [facility] [address] [facility] [place] [address] 09/20/2024 08:27:57 09/21/2024 04:54:27 History of malignant neoplasm of skin [id number] Z85.828 No evidence of recurrence . Discussed risk of recurrence and new skin cancers, so regular self exam and profession al skin checks are recommende d. Sun protection with broad spectrum SPF 30 sunscreen and broad-brim med hat is recommende d. Sun protection with SPF 30 broad spectrum sunscreen and protective gear discussed. Postoperative visit [id number] Z09 Scar [id number] L90.5 [id number] JESS CORADO PA-C [facility] [address] [place] [address] 10/05/2024 14:36:16 10/05/2024 15:33:01 Erectile dysfunction [id number] F52.21 Male hypogonadism 882190 06 E29.1 Health Concerns Section Related Observation LastModified by Organization Detai ls LastModified Time None Recorded Concern Status LastModified by Organization Details LastModified Time None Recorded Advance Directives Directive None Recorded Payers Insurance Date Sequence Insurance Name Policy Number Policy Carr Covered Member ID Carr Member ID Guarantor Name 10/02/2024 1 [place]ARE[place] Dilip Joyner [id number] Dilip Joyner 10/08/2024 2 A[employer] (MEDICARE SUPPLEMENT) Dilip Joyner [id number] Dilip Joyner Notes Date Note Type Note Provider Name and Address Organization Details Recorded Time 07/08/2024 text/html ROS as noted in the HPI annualHx of NMSC - L Neck, L Cheek,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 He has been on sildenafil which helps with his erections. He has difficulty with ejaculation and orgasm. He denies penile trauma. He denies curvature of the penis. He does have a history of Dupuytren's contracture. Patient is now using Testo gel with success SATHISH UNGER JR, MD [address] [place] [address], [phone], [facility] 07/10/2024 10:21:47 09/16/2024 text/html Patient is in today for evaluation of erectile dysfunction and potential low testosterone. Patient now using daily tadalafil with success. Able to climax now, improved. Patient is now using Testo gel with success Visit today is being conducted via telehealth using both audio/video. The patient confirms that he/she is physically located in [place] at the time of this visit. Patient has expressed an understanding of audio/video telehealth as a visit and has consented. SATHISH UNGER JR, MD [address] [place] [address], [phone], [facility] 09/19/2024 11:14:28 09/20/2024 text/html ROS as noted in the HPI Patient presents for a 1 month granulation follow up for the left helix from Mohs performed on 08/16/2024, treating a squamous cell carcinoma. 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 He has been on sildenafil which does help with his erections, but he is still not at treatment goal. He has difficulty with ejaculation and orgasm. He denies penile trauma. He denies curvature of the penis. JESS CORADO PA-C [address] [place] [address], [phone], [facility] 10/07/2024 09:34:12
--- OUTSIDE RECORDS SUMMARY | 2025-03-25 16:14 | XMS_ITS | Encounter Summary ---
Author Organization Healthcare Address [address] [place] [address] Care Team Providers Care Hotbed Operator Name Role Phone Raymond Puckett MD Primary Care Provider [phone] Encounter Details Date Type Department Care Team (Latest Contact Info) Description 03/14/2025 Travel Social History Tobacco Use Types Packs/Day [...] on file documented as of this encounter Functional Status * Calculated C-SSRS [...] Epps RN documented as of this encounter Plan of Treatment Upcoming Encounters Date Type Department Care Team ([facility] st Contact Info) Description 03/31/2025 10:00 AM EDT Office Visit Medical Office Building [facility] [address] [facility], [address] [place] [address] Irene Good PA [address] [place] [address] 04/28/2025 10:50 AM EDT Office Visit Medical Office Building [facility] [address], [address] [place] [address] Raymond Mclean MD [address] [place] [address] documented as of this encounter Goals Goal Patient Goal Type Associated Problems Recent Progress Patient-Stated? Author Autogenerat ed Goal Care Plan Autogenerated Problem No Elian Melanie Mayfield documented as of this encounter Visit Diagnoses [...] documented as of this encounter Care Teams Hotbed Operator Relationship Specialty Start Date End Date Raymond Puckett MD [address] [place] [address] PCP - General Internal Medicine 02/03/25 documented as of this encounter
--- OUTSIDE RECORDS SUMMARY | 2025-03-25 16:14 | XMS_ITS | Encounter Summary ---
Author Organization Healthcare Address [address] [place] [address] Care Team Providers Care Network Cable Installer Name Role Phone Raymond Puckett MD Primary Care Provider [phone] Encounter Details Date Type Department Care Team (Latest Contact Info) Description 02/25/2025 Travel Social History Tobacco Use Types Packs/Day [...] Joint [address], [address] [place] [address] Irene Good PA [address] [place] [address] 04/28/2025 10:50 AM EDT Office Visit Medical Office Building [facility] [address], [address] [place] [address] Raymond Mclean MD [address] [place] [address] documented as of this encounter [...] documented as of this encounter Care Teams Network Cable Installer Relationship Specialty Start Date End Date Raymond Puckett MD [address] [place] [address] PCP - General Internal Medicine 02/03/25 documented as of this encounter
--- OUTSIDE RECORDS SUMMARY | 2025-03-25 16:14 | XMS_ITS | Encounter Summary ---
Author Organization [facility] Address [address] [place] [id number] Care Team Providers Care Trackless Trolley Driver Name Role Phone Raymond Puckett MD Primary Care Provider [phone] Reason for Visit * Reason Onset Date Comments HCN - Patient Message 03/18/2025 Encounter Details Date Type Department Care Team ([facility] st Contact Info) Description 03/18/2025 Telephone Medical Office Building [facility] [address] [facility], [address] [place] [address] Raymond Mclean MD [address] [place] [address] HCN - Patient Message Social History Tobacco Use Types Packs/Day Years [...] as of this encounter Miscellaneous Notes * Telephone Encounter - Nancy Benjamin, RN - 03/18/2025 9:06 AM EDT Patient stated he had a BM at the hospital and a small one Friday, but not had one since. He is taking the docusate sodium and took Miralax last night. He is drinking plenty of water. Asked if he could take Mom? Patient instructed he could take it, also add warm prune juice if he would like. He can eat prunes if he prefers that. If no BM, he can use Senna-S, enema, suppository or mag citrate. Patient stated understanding. * Telephone Encounter - Penelope Brannon Deisy - 03/18/2025 8:23 AM EDT Clinical Concern/Question Reason for Call: Pt is requesting call back regarding unable to go the the bathroom please call to advise Best contact number: [phone] (mobile) Optimal time of day to reach caller: ANYTIME Additional comments/information from caller: None Note: Please do not reply to this message. Follow-up communication and further actions as a result of this message need to be communicated with the patient directly, if the patient is not active onMyChart. If the patient is active on MyChart, they will receive notification of the communication/outcome via [employer] Squaredhart. documented in this encounter Plan of Treatment Upcoming Encounters Date Type Department Care Team (Late st Contact Info) Description 03/31/2025 10:00 AM EDT Office Visit Medical Office Building [facility] [address], [address] [place] [address] Irene Good PA [address] [place] [address] 04/28/2025 10:50 AM EDT Office Visit Medical Office Building [facility] [address], [address] [place] [address] Raymond Mclean MD [address] [place] [address] documented as of this encounter [...] documented as of this encounter Care Teams Trackless Trolley Driver Relationship Specialty Start Date End Date Raymond Puckett MD [address] [place] [address] PCP - General Internal Medicine 02/03/25 documented as of this encounter
--- OUTSIDE RECORDS SUMMARY | 2025-03-25 16:14 | XMS_ITS | Encounter Summary ---
Author Organization Healthcare Address [address] [place] [address] Care Team Providers Care Maid Cleaning Cooking Name Role Phone Raymond Puckett MD Primary Care Provider [phone] Encounter Details Date Type Department Care Team (Late Contact Info) Description 01/31/2025 Orders Only External Location [address] [place] [address] Raymond Puckett MD [address] [place] [id number] Social History Tobacco Use Types Packs/Day Years Used Date Smoking Tobacco: Never Assessed Sex and Gender Information Value Date Recorded Sex Assigned at Not on file Legal Sex Male 8:34 PM EDT Gender Identity Not on file Sexual Orientation Not on file documented as of this encounter Plan of Treatment Upcoming Encounters Date Type Department Care Team ([facility] Contact Info) Description 03/31/2025 10:00 AM EDT Office Visit Medical Office Building [facility] [address], [address] [place] [address] Irene Good PA [address] [place] [address] 04/28/2025 10:50 AM EDT Office Visit Medical Office Building [facility] [address], [address] [place] [address] Raymond Mclean MD [address] [place] [address] documented as of this encounter [...] on filedocumented in this encounter Care Teams Maid Cleaning Cooking Relationship Specialty Start Date End Date Raymond Puckett MD [address] [place] [address] PCP - General Internal Medicine 02/03/25 documented as of this encounter
--- OUTSIDE RECORDS SUMMARY | 2025-03-25 16:14 | XMS_ITS | Encounter Summary ---
Author Organization [facility] Address [address] [place] [id number] Care Team Providers Care Core Manager Name Role Phone Raymond Puckett MD Primary Care Provider [phone] Reason for Visit * Reason Onset Date Comments HCN - Patient Message 02/25/2025 Encounter Details Date Type Department Care Team ([facility] st Contact Info) Description 02/25/2025 Telephone Medical Office Building [facility] [address] [facility], [address] [place] [address] Raymond Mclean MD [address] [facility] [address] [place] [address] HCN - Patient Message Social [...] encounter Miscellaneous Notes * Telephone Encounter - Cassandra Rajan RN - 02/25/2025 2:33 PM EDT Called patient. Generic order for PT placed for scheduling purposes. Informed patient he will get formal order prior to discharge. Order faxed to fax number provided. * Telephone Encounter - Devon Chau - 02/25/2025 2:22 PM EDT Clinical Concern/Question Reason for Call: Dr. Mclean pt called to ask that his post op PT order be sent to [facility]. Best contact number: [phone] (mobile) Optimal time of day to reach caller: ANYTIME Additional comments/information from caller: None Note: Please do not reply to this message. Follow-up communication and further actions as a result of this message need to be communicated with the patient directly, if the patient is not active onMyChart. If the patient is active on MyChart, they will receive notification of the communication/outcome via Minervaxhart. documented in this encounter Plan of Treatment Upcoming Encounters Date Type Department Care Team (Late st Contact Info) Description 03/31/2025 10:00 AM EDT Office Visit Medical Office Building [facility] [address], [address] [place] [address] Irene Good PA [address] [place] [address] 04/28/2025 10:50 AM EDT Office Visit Medical Office Building [facility] [address], [address] [place] [address] Raymond Mclean MD [address] [place] [address] documented as of this encounter [...] documented as of this encounter Care Teams Core Manager Relationship Specialty Start Date End Date Raymond Puckett MD [address] [place] [address] PCP - General Internal Medicine 02/03/25 documented as of this encounter
== END 2025-03-25 23:59 | disposition home or self-care (01) ==
LOC: LAB.DROPOF 16:10
PROVIDERS: PCP Internal Medicine Adolescent Medicine; Visit Provider Internal Medicine Adolescent Medicine
DX: R35.0 Frequency of micturition (principal)
CPT/HCPCS: 87086; 87088; 87186

== ENCOUNTER 2025-03-29 13:00 | Outpatient (RCR) | payer MEDICARE, SELFPAY | END 2025-03-29 23:59 | disposition home or self-care (01) | LOC: PT 13:00 | PROVIDERS: PCP Internal Medicine Adolescent Medicine; Visit Provider Orthopaedic Surgery Adult Reconstructive Orthopaedic Surgery | DX: Z47.89 Encounter for other orthopedic aftercare (principal); Z96.642 Presence of left artificial hip joint | CPT/HCPCS: 97110; 97116; 97162; 97530 ==

== ENCOUNTER 2025-04-15 15:00 | Outpatient (RCR) | payer MEDICARE, SELFPAY | END 2025-04-15 23:59 | disposition home or self-care (01) | LOC: PT 15:00 | PROVIDERS: PCP Internal Medicine Adolescent Medicine; Visit Provider Orthopaedic Surgery Adult Reconstructive Orthopaedic Surgery | DX: Z47.89 Encounter for other orthopedic aftercare (principal); Z96.642 Presence of left artificial hip joint | CPT/HCPCS: 97110; 97530 ==